=== PATIENT | male | born 1950 | race Caucasian/White ===

== ENCOUNTER 2017-08-19 17:42 | Emergency (ER) | payer MEDICAID ==
[~2017-08-19] VITALS: Ht 167.6 cm; Wt 74.8 kg
[~2017-08-19 17:42] MED LIST: APIX2.5T PO; INSU100I14 SQ; INSU100I29 SQ; MEMA5TAB16 PO; QUET25TA73 PO; RIVA1.5C6 PO; WARF-47 PO; WARF-48 PO
--- OUTSIDE RECORDS SUMMARY | 2017-08-19 17:46 | XMS REPORT ---
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 as directed 6h May, Active RESULTS No Results PROCEDURES No Known procedures IMMUNIZATIONS No Known Immunizations
--- OUTSIDE RECORDS SUMMARY | 2017-08-19 17:46 | XMS REPORT ---
Author Author EAMON YEBOAH [facility] eClinicalWorks Address Unknown Phone Unavailable Care Team Providers Care Patternmaker Helper Name Role Phone EAMON YEBOAH CP Unavailable Allergies, Adverse Reactions, Alerts Substance Reaction Event Type N.K.D.A. 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 One Touch Delica Ultra 3 times a day September 15, 2015 as directed Seroquel [facility] [address]-08 25 MG Orally 2 times a day, please voucher this medication December 08, 2015 as directed Ranitidine HCl [facility] 89891439220 150 MG 1 capsule Twice a day Orally 30 days Lisinopril ND 65046532922 10 MG 1 tablet Once a day Orally 30 days Test strips NDC 0 ... 4 times a day May 22, 2015 as directed Warfarin Sodium [facility] [address]-66 5 mg Orally Once a day, please voucher this medication December 08, 2015 1 tablet Rivastigmine Tartrate [facility] 70760683821 1.5 MG please voucher this medication 1 capsule with food Twice a day Orally 30 days Pravastatin Sodium [facility] 44157123773 40 MG 1 tablet Once a day Orally Levemir FlexTouch [facility] [address]-22 100 UNIT/ML Subcutaneous 2 times a day. Jun 17, 2015 46 u Namenda [facility] [address]-17 5 mg Orally Once a day, please voucher this medication 1 tablet BD Ultra-Fine Pen Holly NDC 0 BD PEN NEEDLE HAWA subcutaneous 5 times per day October 09, 2015 29g x 1/2 NovoLog Flexpen [facility] 48255085375 100 UNIT/ML Subcutaneous 3 times a day with meals 8 units Warfarin Sodium [facility] [address]-60 2 MG Orally Once a day, please voucher this medication December 08, 2015 1 tablet NovoLog Flexpen [facility] [address]-52 100 UNIT/ML Subcutaneous 3 times a day with meals Jun 11, 2015 8 units Procedures Procedure Coding System Code Date PROTHROMBIN TIME CPT-4 54485 December 08, 2015 Office Visit, Est Pt., Level 3 CPT-4 41060 December 08, 2015 Vital Signs Date/Time: December 08, 2015 Cardiac Monitoring Heart Rate 68 bpm Weight 188.1 lbs Height 66 in Blood Pressure Diastolic 70 mmHg Blood Pressure Systolic 130 mmHg Results No Known Results Summary Purpose eClinicalWorks Submission
--- OUTSIDE RECORDS SUMMARY | 2017-08-19 17:46 | XMS REPORT ---
Author Author AARON RAMOS [facility] Address [address] [place] [address] Care Team Providers Care Cutter Operator Name Role Phone AARON RAMOS Unavailable PROBLEMS Type Condition ICD9-CM Code [id number] Code Onset Dates Condition Status SNOMED Code Problem Diabetes type 2, controlled E11.9 Active 58199298 Problem Chronic obstructive pulmonary disease, unspecified COPD type J44.9 Active 35188427 Problem Essential hypertension I10 Active 83343600 Problem DM neuro manif type II E11.49 Active 64821783 Problem terminal superintendent 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 Active 298196800 Problem History of pulmonary embolus (PE) Z86.711 Active 449552919 Problem Schizophrenia, unspecified type F20.9 Active 38159673 ALLERGIES Unknown Allergies SOCIAL HISTORY No smoking Hx information available PLAN OF CARE Activity Details Follow Up 2 Months Reason: VITAL SIGNS MEDICATIONS Unknown Medications RESULTS No Results PROCEDURES Procedure Date Ordered Related Diagnosis Body Site Minor complication (15 mins) Mar 31, 2016 IMMUNIZATIONS No Known Immunizations
--- OUTSIDE RECORDS SUMMARY | 2017-08-19 17:46 | XMS REPORT ---
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 Active 506436612 Problem Diabetes type 2, controlled E11.9 Active 42072587 Problem Dementia without behavioral disturbance, unspecified dementia type F03.90 Active 89222749 Problem Chronic obstructive pulmonary disease, unspecified COPD type J44.9 Active 79136266 Problem Schizophrenia, unspecified type F20.9 Active 45914358 Problem DM neuro manif type II E11.49 Active 68406004 Problem Essential hypertension I10 Active 48166872 Problem History of pulmonary embolus (PE) Z86.711 Active 177422561 ALLERGIES No Information SOCIAL HISTORY Never Assessed PLAN OF CARE VITAL SIGNS MEDICATIONS Medication Instructions Dosage Frequency Start Date End Date Duration Status Medrol 4 MG as directed October, Active Ipratropium-Albuterol 0.5-2.5 (3) MG/3ML Inhalation every 6 hrs while awke 3 ml October, 2 days Active RESULTS No Results PROCEDURES No Known procedures IMMUNIZATIONS No Known Immunizations MEDICAL (GENERAL) HISTORY Type Description Date Medical History hypertension Medical History diabetes mellitus Medical History heart disease, CAD Medical History psych disorder- hallucinations Medical History COPD Medical History Previous CVA 2008 Medical History Hx of DVT Surgical History cardiac pacemaker Surgical History bypass surgeries x's 2 Hospitalization History had CVA Audi 2007 Hospitalization History COPD Exacerbation, anemia, acute kidney injury 2015
--- OUTSIDE RECORDS SUMMARY | 2017-08-19 17:46 | XMS REPORT ---
Author Author ROMULO IBARRA [facility] eClinicalWorks Address Unknown Phone Unavailable Care Team Providers Care Bingo Worker Name Role Phone ROMULO IBARRA Unavailable Allergies No Known Allergies Problems Problem Type Condition Code Onset Dates Condition Status Problem Diabetes type 2, controlled E11.9 Active Problem Hypertension 401.9 Active Problem detention 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 Active Assessment detention 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 Active Medications No Known Medications Procedures Procedure Coding System Code Date PROTHROMBIN TIME CPT-4 54317 Apr 10, 2015 Results No Known Results Summary Purpose eClinicalWorks Submission
--- OUTSIDE RECORDS SUMMARY | 2017-08-19 17:46 | XMS REPORT ---
Author Author AARON RAMOS [facility] Address [address] [place] [address] Care Team Providers Care Subway Guard Name Role Phone ARAON RAMOS Unavailable PROBLEMS Type Condition ICD9-CM Code PGK86-VP Code Onset Dates Condition Status SNOMED Code Problem Diabetes type 2, controlled E11.9 Active 33389504 Problem Chronic obstructive pulmonary disease, unspecified COPD type J44.9 Active 57913305 Problem Essential hypertension I10 Active 73799765 Problem DM neuro manif type II E11.49 Active 97280392 Problem moth 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 Active 944032248 Problem History of pulmonary embolus (PE) Z86.711 Active 147774353 Problem Schizophrenia, unspecified type F20.9 Active 32292087 ALLERGIES Unknown Allergies SOCIAL HISTORY No smoking Hx information available PLAN OF CARE VITAL SIGNS MEDICATIONS Medication Instructions Dosage Frequency Start Date End Date Duration Status Donepezil Hydrochloride 5 mg Orally Once a day for 4 weeks and then increase to 10mg at bedtine 1 tablet at bedtime May, 30 day(s) Active RESULTS No Results PROCEDURES No Known procedures IMMUNIZATIONS No Known Immunizations
--- OUTSIDE RECORDS SUMMARY | 2017-08-19 17:46 | XMS REPORT ---
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 Jun 08, 2015 as directed Results No Known Results Summary Purpose eClinicalWorks Submission
--- OUTSIDE RECORDS SUMMARY | 2017-08-19 17:46 | XMS REPORT ---
Author Author AARON RAMOS [facility] Address [address] [place] [address] Care Team Providers Care Area Director Name Role Phone AARON RAMOS Unavailable PROBLEMS Type Condition ICD9-CM Code [id number]-MT Code Onset Dates Condition Status SNOMED Code Problem Diabetes type 2, controlled E11.9 Active 91409283 Problem Chronic obstructive pulmonary disease, unspecified COPD type J44.9 Active 91197991 Problem Essential hypertension I10 Active 69403821 Problem DM neuro manif type II E11.49 Active 53666810 Problem watermaster 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 Active 107396300 Problem History of pulmonary embolus (PE) Z86.711 Active 377261018 Problem Schizophrenia, unspecified type F20.9 Active 37720904 ALLERGIES Unknown Allergies SOCIAL HISTORY No smoking Hx information available PLAN OF CARE Activity Details Follow Up 2 Months Reason: VITAL SIGNS MEDICATIONS Unknown Medications RESULTS No Results PROCEDURES Procedure Date Ordered Related Diagnosis Body Site Stable Visit (10 minutes) Jun 16, 2016 IMMUNIZATIONS No Known Immunizations
--- OUTSIDE RECORDS SUMMARY | 2017-08-19 17:47 | XMS REPORT ---
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
--- OUTSIDE RECORDS SUMMARY | 2017-08-19 17:47 | XMS REPORT ---
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
--- OUTSIDE RECORDS SUMMARY | 2017-08-19 17:47 | XMS REPORT ---
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 4 times a day May 22, 2015 as directed Results No Known Results Summary Purpose eClinicalWorks Submission
--- OUTSIDE RECORDS SUMMARY | 2017-08-19 17:47 | XMS REPORT ---
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
--- OUTSIDE RECORDS SUMMARY | 2017-08-19 17:47 | XMS REPORT ---
Author Author AARON RAMOS [facility] eClinicalWorks Address Unknown Phone Unavailable Care Team Providers Care Entry Analyst Name Role Phone AARON RAMOS Unavailable Allergies No Known Allergies Problems Problem Type Condition Code Onset Dates Condition Status Problem Schizophrenia, unspecified type F20.9 Active Problem DM neuro manif type II E11.49 Active Problem History of pulmonary embolus (PE) Z86.711 Active Problem Hypertension 401.9 Active Problem terminal worker 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 Active Problem Diabetes type 2, controlled E11.9 Active Medications Medication Code System Code Instructions Start Date End Date Status Dosage Metformin HCl [facility] [address]-13 500 MG Orally Twice a day Mar 31, 2016 1 tablet after meals Results No Known Results Summary Purpose eClinicalWorks Submission
--- OUTSIDE RECORDS SUMMARY | 2017-08-19 17:47 | XMS REPORT ---
Author Author EAMON YEBOAH Organization eClinicalWorks Address Unknown Phone Unavailable Care Team Providers Care Roll On Worker Name Role Phone EAMON YEBOAH CP Unavailable Allergies No Known Allergies Problems Problem Type Condition Code Onset Dates Condition Status Problem DM neuro manif type II E11.49 Active Problem halfway 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 Active Problem Schizophrenia, unspecified type F20.9 Active Assessment landscape architect and planner 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 Active Problem Diabetes type 2, controlled E11.9 Active Problem Hypertension 401.9 Active Medications No Known Medications Procedures Procedure Coding System Code Date PROTHROMBIN TIME CPT-4 62691 Jan 25, 2016 Results No Known Results Summary Purpose eClinicalWorks Submission
--- OUTSIDE RECORDS SUMMARY | 2017-08-19 17:47 | XMS REPORT ---
Author Author AARON RAMOS [facility] Address [address] [place] [address] Care Team Providers Care Lunchroom Attendant Name Role Phone AARON RAMOS Unavailable PROBLEMS Type Condition ICD9-CM Code [id number] Code Onset Dates Condition Status SNOMED Code Problem Diabetes type 2, controlled E11.9 Active 11561210 Problem Chronic obstructive pulmonary disease, unspecified COPD type J44.9 Active 62935050 Problem Essential hypertension I10 Active 24605497 Problem DM neuro manif type II E11.49 Active 49988604 Problem terminologist 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 Active 009345755 Problem History of pulmonary embolus (PE) Z86.711 Active 107282569 Problem Schizophrenia, unspecified type F20.9 Active 70647429 ALLERGIES Unknown Allergies SOCIAL HISTORY No smoking Hx information available PLAN OF CARE VITAL SIGNS MEDICATIONS Unknown Medications RESULTS No Results PROCEDURES No Known procedures IMMUNIZATIONS No Known Immunizations
--- OUTSIDE RECORDS SUMMARY | 2017-08-19 17:47 | XMS REPORT ---
Author Author EAMON YEBOAH Organization eClinicalWorks Address Unknown Phone Unavailable Care Team Providers Care Enrollment Representative Name Role Phone EAMON YEBOAH CP Unavailable Allergies, Adverse Reactions, Alerts Substance Reaction Event Type N.K.D.A. Info Not Available Non Drug Allergy Problems Problem Type Condition Code Onset Dates Condition Status Assessment Schizophrenia, unspecified type F20.9 Active Problem DM neuro manif type II E11.49 Active Problem manager long term care 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 Active Problem Schizophrenia, unspecified type F20.9 Active Assessment DM neuro manif type II E11.49 Active Assessment manager long term care 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 Active Problem Diabetes type 2, controlled E11.9 Active Problem Hypertension 401.9 Active Medications Medication Code System Code Instructions Start Date End Date Status Dosage NovoLog Flexpen [facility] [id number] 100 UNIT/ML Subcutaneous 3 times a day with meals 8 units Warfarin Sodium [facility] [address]-61 2 MG Orally Once a day, please voucher this medication December 08, 2015 1 tablet Seroquel [facility] [address]-06 25 MG Orally 2 times a day, please voucher this medication December 08, 2015 as directed Levemir FlexTouch [facility] [address]-06 100 UNIT/ML Subcutaneous 2 times a day. Jun 17, 2015 46 u Warfarin Sodium [facility] [address]-45 5 mg Orally Once a day, please voucher this medication December 08, 2015 1 tablet Namenda [facility] [address]-71 5 mg Orally Once a day, please voucher this medication 1 tablet Procedures Procedure Coding System Code Date PROTHROMBIN TIME CPT-4 95740 Jan 05, 2016 Office Visit, Est Pt., Level 3 CPT-4 35685 Jan 05, 2016 Vital Signs Date/Time: Jan 05, 2016 Cardiac Monitoring Heart Rate 72 bpm Weight 183.1 lbs Height 66 in BMI 29.55 Index Blood Pressure Diastolic 70 mmHg Blood Pressure Systolic 132 mmHg Results No Known Results Summary Purpose eClinicalWorks Submission
--- OUTSIDE RECORDS SUMMARY | 2017-08-19 17:47 | XMS REPORT ---
Author Author ROMULO IBARRA [facility] eClinicalWorks Address Unknown Phone Unavailable Care Team Providers Care Technical Implementation Lead Name Role Phone ROMULO IBARRA Unavailable Allergies No Known Allergies Problems Problem Type Condition Code Onset Dates Condition Status Problem Diabetes type 2, controlled E11.9 Active Problem Hypertension 401.9 Active Problem group home 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 Active Medications Medication Code System Code Instructions Start Date End [place] D[place] [address]-48 5 MG Orally Once a day 1 tablet Coumadin NDC [address]-10 4 MG Orally tuesdays & Feb 27, 2015 2 tabs Results No Known Results Summary Purpose eClinicalWorks Submission
--- OUTSIDE RECORDS SUMMARY | 2017-08-19 17:47 | XMS REPORT ---
Author Author ROMULO IBARRA [facility] eClinicalWorks Address Unknown Phone Unavailable Care Team Providers Care Play Leader Name Role Phone ROMULO IBARRA Unavailable Allergies No Known Allergies Problems Problem Type Condition Code Onset Dates Condition Status Problem Hypertension 401.9 Active Medications Medication Code System Code Instructions Start Date End Date Status Dosage Coumadin [facility] [address]-08 5 MG Orally Once a day 1 tablet Results No Known Results Summary Purpose eClinicalWorks Submission
--- OUTSIDE RECORDS SUMMARY | 2017-08-19 17:47 | XMS REPORT ---
Author Author ROMULO IBARRA [facility] eClinicalWorks Address Unknown Phone Unavailable Care Team Providers Care Supervisor Chemical Name Role Phone ROMULO IBARRA CP Unavailable Allergies, Adverse Reactions, Alerts Substance Reaction Event Type N.K.D.A. Info Not Available Non Drug Allergy Problems Problem Type Condition ICD-9 Code Onset Dates Condition Status Assessment Hx of cardiac pacemaker V12.50 Active Assessment Hypertension 401.9 Active Problem Hypertension 401.9 Active Assessment COPD (chronic obstructive pulmonary disease) 496 Active Assessment History of hallucinations V11.9 Active Medications Medication Code System Code Instructions Start Date End Date Status Dosage Latuda [facility] [address]-74 120 MG Orally Once a day 1 tablet Rivastigmine Tartrate [facility] [address]-50 1.5 MG Orally Twice a day 1 capsule with food Humalog KwikPen [facility] [address]-43 100 UNIT/ML Subcutaneous 3 times a day per SS Feb 27, 2015 as directed Coumadin [facility] [address]-63 4 MG Orally tuesdays & Feb 27, 2015 2 tabs Coumadin [facility] [address]-99 5 MG Orally Once a day 1 tablet Pravastatin Sodium [facility] [address]-21 40 MG Orally Once a day 1 tablet Ranitidine HCl [facility] [address]-58 150 MG Orally Twice a day 1 capsule Insulin Detemir [facility] [address]-99 100 UNIT/ML Subcutaneous 2 times a day Feb 27, 2015 30 units Lisinopril [facility] [address]-81 10 MG Orally Once a day 1 tablet Namenda [facility] [address]-73 5 MG Orally Once a day 1 tablet Vital Signs Date/Time: Feb 27, 2015 Temperature 97 F Weight 179 lbs Height 66 in BMI 28.89 Index Blood Pressure Diastolic 70 mmHg Blood Pressure Systolic 140 mmHg Cardiac Monitoring Heart Rate 80 bpm Results No Known Results Summary Purpose eClinicalWorks Submission
--- OUTSIDE RECORDS SUMMARY | 2017-08-19 17:47 | XMS REPORT ---
Author Author AARON RAMOS Organization eClinicalWorks Address Unknown Phone Unavailable Care Team Providers Care Dungeon Master Name Role Phone AARON RAMOS CP Unavailable Allergies No Known Allergies Problems Problem Type Condition Code Onset Dates Condition Status Problem DM neuro manif type II E11.49 Active Problem longterm 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 Active Problem Schizophrenia, unspecified type F20.9 Active Problem Diabetes type 2, controlled E11.9 Active Problem Hypertension 401.9 Active Medications No Known Medications Results No Known Results Summary Purpose eClinicalWorks Submission
--- OUTSIDE RECORDS SUMMARY | 2017-08-19 17:47 | XMS REPORT ---
Author Author ROMULO IBARRA [facility] eClinicalWorks Address Unknown Phone Unavailable Care Team Providers Care Leather Stamper Name Role Phone ROMULO IBARRA Unavailable Allergies No Known Allergies Problems Problem Type Condition Code Onset Dates Condition Status Problem Diabetes type 2, controlled E11.9 Active Problem Hypertension 401.9 Active Problem halfway 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 Active Assessment halfway 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 Active Medications No Known Medications Procedures Procedure Coding System Code Date PROTHROMBIN TIME CPT-4 06703 Mar 26, 2015 Results No Known Results Summary Purpose eClinicalWorks Submission
--- OUTSIDE RECORDS SUMMARY | 2017-08-19 17:47 | XMS REPORT ---
Author Author ROMULO IBARRA eClinicalWorks Address Unknown Phone Unavailable Care Team Providers Care Copy Reader Name Role Phone ROMULO IBARRA Unavailable Allergies, Adverse Reactions, Alerts Substance Reaction Event Type N.K.D.A. Info Not Available Non Drug Allergy Problems Problem Type Condition Code Onset Dates Condition Status Problem Hypertension 401.9 Active Assessment Diabetes type 2, controlled E11.9 Active Problem Diabetes type 2, controlled E11.9 Active Assessment Encounter for immunization Z23 Active Medications Medication Code System Code Instructions Start Date End Date Status Dosage Insulin Detemir [facility] [address]-49 100 UNIT/ML Subcutaneous 2 times a day Feb 27, 2015 30 units Rivastigmine Tartrate [facility] [address]-34 1.5 MG Orally Twice a day 1 capsule with food Pravastatin Sodium [facility] [address]-66 40 MG Orally Once a day 1 tablet Coumadin [facility] [address]-44 4 MG Orally tuesdays & Feb 27, 2015 2 tabs Latuda [facility] [address]-94 120 MG Orally Once a day 1 tablet Ranitidine HCl [facility] [address]-00 150 MG Orally Twice a day 1 capsule Namenda [facility] [address]-87 5 MG Orally Once a day 1 tablet Humalog KwikPen [facility] [address]-10 100 UNIT/ML Subcutaneous 3 times a day per SS Feb 27, 2015 as directed Lisinopril [facility] [address]-38 10 MG Orally Once a day 1 tablet Procedures Procedure Coding System Code Date Office Visit, Est Pt., Level 3 CPT-4 14710 Mar 19, 2015 MICROALBUMIN, SEMIQUANT CPT-4 73221 Mar 19, 2015 GLYCATED HEMOGLOBIN TEST CPT-4 46370 Mar 19, 2015 SINGLE IMMUNIZATION ADMIN CPT-4 07119 Mar 19, 2015 FLUARIX QUAD (3 & UP)--2014 CPT-4 18094 Mar 19, 2015 Vital Signs Date/Time: Mar 19, 2015 Temperature 98.4 F Weight 185.0 lbs Height 66 in BMI 29.86 Index Blood Pressure Diastolic 40 mmHg Blood Pressure Systolic 110 mmHg Cardiac Monitoring Heart Rate 68 bpm Results Name Result Date Reference Range Unit Abnormality Flag A1C (IN HOUSE) Immunizations Vaccine Administration Date FLUARIX QUAD (3 & UP)-GSK-2014Mar 19, 2015 Summary Purpose eClinicalWorks Submission
--- OUTSIDE RECORDS SUMMARY | 2017-08-19 17:48 | XMS REPORT ---
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 Active 721385292 Problem Diabetes type 2, controlled E11.9 Active 47528058 ALLERGIES Unknown Allergies SOCIAL HISTORY No smoking Hx information available PLAN OF CARE VITAL SIGNS MEDICATIONS Medication Instructions Dosage Frequency Start Date End Date Duration Status Rivastigmine Tartrate 1.5 MG Orally Twice a day 1 tablet 12h Active Seroquel 25 MG Orally 2 times a day 1 tablet 12h Dec, Active Warfarin Sodium 2 MG Orally Once a day 1 tablet 24h Dec, Active Warfarin Sodium 5 mg Orally Once a day 1 tablet 24h Dec, Active RESULTS No Results PROCEDURES No Known procedures IMMUNIZATIONS No Known Immunizations
--- OUTSIDE RECORDS SUMMARY | 2017-08-19 17:48 | XMS REPORT ---
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
--- OUTSIDE RECORDS SUMMARY | 2017-08-19 17:48 | XMS REPORT ---
Author Author ROMULO IBARRA eClinicalWorks Address Unknown Phone Unavailable Care Team Providers Care Buzzsaw Operator Name Role Phone ROMULO IBARRA CP Unavailable Allergies, Adverse Reactions, Alerts Substance Reaction Event Type N.K.D.A. 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 4 times a day May 22, 2015 as directed Lisinopril [facility] [address]-30 10 MG Orally Once a day 1 tablet Pravastatin Sodium [facility] [address]-21 40 MG Orally Once a day 1 tablet Coumadin [facility] [address]-66 4 MG Orally tuesdays & Feb 27, 2015 2 tabs Latuda [facility] [address]-67 120 MG Orally Once a day 1 tablet NovoLog [facility] [address]-74 100 UNIT/ML Subcutaneous 3 times a day with meals Jun 08, 2015 8 units Insulin Detemir [facility] [address]-65 100 UNIT/ML Subcutaneous 2 times a day Feb 27, 2015 30 units Namenda [facility] [address]-34 5 MG Orally Once a day 1 tablet Ranitidine HCl [facility] [address]-90 150 MG Orally Twice a day 1 capsule Coumadin [facility] [address]-40 5 MG Orally Once a day 1 tablet Rivastigmine Tartrate [facility] [address]-84 1.5 MG Orally Twice a day 1 capsule with food Procedures Procedure Coding System Code Date Office Visit, Est Pt., Level 3 CPT-4 89933 Jun 08, 2015 PROTHROMBIN TIME CPT-4 02158 Jun 08, 2015 Vital Signs Date/Time: Jun 08, 2015 Temperature 98 F Weight 184 lbs Height 66 in BMI 29.70 Index Blood Pressure Diastolic 70 mmHg Blood Pressure Systolic 114 mmHg Cardiac Monitoring Heart Rate 71 bpm Results No Known Results Summary Purpose eClinicalWorks Submission
[2017-08-19] MEDS ORDERED: ASPIRIN 81 MG CHEW (CHILDREN'S ASA) PO ONE (18:00)
[2017-08-19] MEDS ORDERED: ONDANSETRON 4 MG/2 ML (SDV) Z0FRAN IVP ONE (18:00)
--- NOTE | 2017-08-19 18:01 | ED Chest Pain ---
General Stated Complaint: CP Source: patient Exam Limitations: no limitations History of Present Illness Date Seen by Provider: Aug 19, 2017 Time Seen by Provider: 17:59 Initial Comments To ER per EMS from via [facility] with reports of central chest pain that was nonradiating that began about 4:30 while he was sitting in his chair watching TV. He has chronic shortness of breath unchanged. Pain did not radiate. He states that it initially began in his abdomen and seemed to move up towards. He has been nauseous. He denies abdominal pain. He was given a nitroglycerin patch by EMS in route to the hospital because they could not get IV access. At this time his pain is gone.History of dementia. 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 Timing/Duration: 1-3 hours, changing over time Severity/Quality: moderate Location: central Radiation: no radiation Activities at Onset: none ASA po SAND TECHNOLOGIST: No NTG SL SAND TECHNOLOGIST: No Associated Symptoms: nausea/vomiting Allergies and Home Medications Allergies Coded Allergies: No Known Drug Allergies (Unverified , 03/17/16) Home Medications Apixaban 2.5 Mg Tablet, 2.5 MG PO BID Prescribed by: ANDRESSA WELCH on 03/24/16 1040 Insulin Aspart 300 Units/3 Ml Solution, 8 UNITS SQ AC, (Reported) ONLY INJECTS IF BS IS ABOVE 140 Insulin Detemir 100 Unit/1 Ml Insuln.pen, 15 UNITS SQ BID LAST FILLED 11/16/15 #30 DAYS SUPPLY Prescribed by: ANDRESSA WELCH on 03/24/16 1040 Memantine HCl 5 Mg Tablet, 5 MG PO DAILY, (Reported) Quetiapine Fumarate 25 Mg Tablet, 25 MG PO BID, (Reported) Rivastigmine Tartrate 1.5 Mg Capsule, 1.5 MG PO BID, (Reported) Patient Home Medication List Home Medication List Reviewed: Yes Review of Systems Constitutional: see HPI EENTM: No Symptoms Reported Respiratory: No Symptoms Reported Cardiovascular: See HPI, Chest Pain Gastrointestinal: See HPI, Abdominal Pain, Nausea Musculoskeletal: no symptoms reported Skin: no symptoms reported Psychiatric/Neurological: No Symptoms Reported Endocrine: No Symptoms Reported Hematologic/Lymphatic: No Symptoms Reported Past Ivvurrh-Nyvsty-Ktyfni Hx Patient Social History Type Used: Cigarettes Recent Hopitalizations: No Immunizations Up To Date Tetanus Booster (TDap): Unknown Seasonal Allergies Seasonal Allergies: No Respiratory Respiratory Disorders: COPD Currently Using CPAP: No Currently Using BIPAP: No Reproductive System Hx Reproductive Disorders: No Gastrointestinal Gastrointestinal Disorders: Gastroesophageal Reflux Endocrine Endocrine Disorders: Diabetes, Insulin dep Psychosocial Behavioral Health Disorders: Anxiety Family Medical History Family Medial History: Cardiovascular disease 19 FATHER 19 MOTHER G8 BROTHER G8 SISTER Diabetes mellitus 19 FATHER G8 BROTHER FH: lung cancer 19 MOTHER G8 BROTHER G8 SISTER Respiratory disorder 19 MOTHER Physical Exam Vital Signs Vital Signs - First Documented 08/19/17 17:48 Temp 98.0 Pulse 60 Resp 18 B/P (MAP) 179/97 (124) Pulse Ox 97 O2 Delivery Room Air Capillary Refill : General Appearance: No Apparent Distress, WD/WN HEENT: PERRL/EOMI, TMs Normal Neck: Full Range of Motion, Normal Inspection Respiratory: Normal Breath Sounds, No Accessory Muscle Use, No Respiratory Distress Cardiovascular: Regular Rate, Rhythm, Normal Peripheral Pulses Gastrointestinal: Normal Bowel Sounds, Non Tender, Soft Extremity: Normal Capillary Refill, Normal Inspection Neurologic/Psychiatric: Alert, Oriented x3, No Motor/Sensory Deficits Skin: Normal Color, Warm/Dry Progress/Results/Core Measures Results/Orders Lab Results Laboratory Tests Test 08/19/17 17:55 08/19/17 20:00 Range/Units White Blood Count 15.2 H 4.3-11.0 10^3/uL Red Blood Count 5.33 4.35-5.85 10^6/uL Hemoglobin 13.2 L 13.3-17.7 G/DL Hematocrit 41 40-54 % Mean Corpuscular Volume 77 L 80-99 FL Mean Corpuscular Hemoglobin 25 25-34 PG Mean Corpuscular Hemoglobin Concent 32 32-36 G/DL Red Cell Distribution Width 17.8 H 10.0-14.5 % Platelet Count 310 130-400 10^3/uL Mean Platelet Volume 10.5 H 7.4-10.4 FL Neutrophils (%) (Auto) 55 42-75 % Lymphocytes (%) (Auto) 32 12-44 % Monocytes (%) (Auto) 9 0-12 % Eosinophils (%) (Auto) 4 0-10 % Basophils (%) (Auto) 2 0-10 % Neutrophils # (Auto) 8.3 H 1.8-7.8 X 10^3 Lymphocytes # (Auto) 4.8 H 1.0-4.0 X 10^3 Monocytes # (Auto) 1.3 H 0.0-1.0 X 10^3 Eosinophils # (Auto) 0.5 H 0.0-0.3 10^3/uL Basophils # (Auto) 0.2 H 0.0-0.1 10^3/uL Neutrophils % (Manual) 48 % Lymphocytes % (Manual) 19 % Monocytes % (Manual) 6 % Eosinophils % (Manual) 2 % Basophils % (Manual) 0 % Band Neutrophils 2 % Reactive Lymphocytes 23 % Toxic Granulation 1+ Poikilocytosis SLIGHT Anisocytosis MODERATE Stomatocytes SLIGHT Elliptocytes SLIGHT Rouleau SLIGHT Prothrombin Time 14.2 12.2-14.7 SEC INR Comment 1.1 0.8-1.4 Activated Partial Thromboplast Time 40 H 24-35 SEC Sodium Level 137 135-145 MMOL/L Potassium Level 4.5 3.6-5.0 MMOL/L Chloride Level 104 98-107 MMOL/L Carbon Dioxide Level 24 21-32 MMOL/L Anion Gap 9 5-14 MMOL/L Blood Urea Nitrogen 11 7-18 MG/DL Creatinine 1.30 0.60-1.30 MG/DL Estimat Glomerular Filtration Rate 55 BUN/Creatinine Ratio 8 Glucose Level 139 H 70-105 MG/DL Calcium Level 9.3 8.5-10.1 MG/DL Magnesium Level 2.1 1.8-2.4 MG/DL Total Bilirubin 0.3 0.1-1.0 MG/DL Aspartate Amino Transf (AST/SGOT) 22 5-34 U/L Alanine Aminotransferase (ALT/SGPT) 15 0-55 U/L Alkaline Phosphatase 86 40-136 U/L Myoglobin 35.6 10.0-92.0 NG/ML Troponin I < 0.30 < 0.30 <0.30 NG/ML B-Type Natriuretic Peptide 75.6 <100.0 PG/ML Total Protein 7.7 6.4-8.2 GM/DL Albumin 4.4 3.2-4.5 GM/DL Lipase 20 8-78 U/L My Orders Orders - MARISABEL BALDWIN APRN Cbc With Automated Diff (08/19/17 17:56) Magnesium (08/19/17 17:56) Chest 1 View, Ap/Pa Only (08/19/17 17:56) Ekg Tracing (08/19/17 17:56) Cardiac Profile 1 (08/19/17 17:56) Comprehensive Metabolic Panel (08/19/17 17:56) Myoglobin Serum (08/19/17 17:56) Protime With Inr (08/19/17 17:56) Partial Thromboplastin Time (08/19/17 17:56) O2 (08/19/17 17:56) Monitor-Rhythm Ecg Trace Only (08/19/17 17:56) Aspirin Chewable Tablet (Baby Aspirin Ch (08/19/17 18:00) Saline Lock/Iv-Start (08/19/17 17:56) Lipase (08/19/17 17:56) BNP (08/19/17 17:56) Ondansetron Injection (Zofran Injectio (08/19/17 18:00) Manual Differential (08/19/17 17:55) Hydralazine Injection (Apresoline Inject (08/19/17 18:15) Hydralazine Injection (Apresoline Inject (08/19/17 18:45) Troponin I (08/19/17 20:03) Medications Given in ED Current Medications Medications Dose Ordered Sig/Chalo Route Start Time Stop Time Status Last Admin Dose Admin Aspirin 324 mg ONCE ONCE PO 08/19/17 18:00 18 18:01 DC 18 18:32 324 MG Hydralazine HCl 10 mg ONCE ONCE IV 18 18:15 18 18:16 DC 18 18:30 10 MG Hydralazine HCl 10 mg ONCE ONCE IV 08/19/17 18:45 08/19/17 18:46 DC 08/19/17 18:48 10 MG Ondansetron HCl 8 mg ONCE ONCE IVP 08/19/17 18:00 08/19/17 18:01 DC 08/19/17 18:09 8 MG Vital Signs/I&O Vital Sign - Last 12Hours 08/19/17 17:48 Temp 98.0 Pulse 60 Resp 18 B/P (MAP) 179/97 (124) Pulse Ox 97 O2 Delivery Room Air Diagnostic Imaging Diagonstic Imaging: Xray Comments NAME: SHALA PEDRO [facility] REC#: [id number] PT STATUS: REG ER : 1950 PHYSICIAN: MARISABEL BALDWIN APRN ADMIT DATE: 08/19/17/ER Draft Date of Exam:08/19/17 CHEST 1 VIEW, AP/PA ONLY PATIENT HISTORY: Chest pain. TECHNIQUE: Single frontal view of the chest. COMPARISON: 03/20/2016. FINDINGS: There is elevation of the right hemidiaphragm, left lung volume appears normal. There are bibasilar opacities, likely atelectasis, which appears similar to the prior study. Interstitial opacities appear decreased since the prior study. The left-sided pacemaker leads appear unchanged in position. Sternotomy wires and post CABG changes are present. Cardiac size appears stable. No acute osseous abnormality is seen. There is no pneumothorax or large pleural effusion identified. IMPRESSION: Minimal bibasilar opacities, likely atelectasis. No acute pulmonary abnormality seen. Dictated on workstation # [id number] Dict: 08/19/171916 Trans: 08/19/171918 [facility] [id number] Interpreted by: ANUJA FARAH MD Electronically signed by: Departure Communication (Admissions) Progress Notes Patient has been asymptomatic since arriving to the emergency room he was briefly nauseated. However chest pain has remained gone. His blood pressure is now in the 150 systolic range. His repeat troponin is negative. His abdomen is soft and round nontender to palpation so I will not do any abdominal imaging at this time. We will discharge back to [facility] home with return precautions. Impression Impression: Primary Impression: Chest pain Disposition: XF [facility] Condition: Stable Departure-Patient Inst. Decision time for Depature: 20:47 Referrals: ANRDESSA WELCH MD (PCP) Primary Care Physician Patient Instructions: Chest Pain (DC) Add. Discharge Instructions: 1. Return to the emergency room for any abdominal pain, shortness of breath, chest pain, vomiting or any other concerns. Follow-up with his doctor on Monday. MARISABEL BALDWIN APRN Aug 19, 2017 18:01
[2017-08-19 18:05] LABS: BASOPHILS # (AUTO) 0.2 10^3/uL (0.0-0.1); BASOPHILS % (AUTO) 2 % (0-10); EOSINOPHILS # (AUTO) 0.5 10^3/uL (0.0-0.3); EOSINOPHILS % (AUTO) 4 % (0-10); HEMATOCRIT 41 % (40-54); HEMOGLOBIN 13.2 G/DL (13.3-17.7); LYMPHOCYTES # (AUTO) 4.8 X 10^3 (1.0-4.0); LYMPHOCYTES % (AUTO) 32 % (12-44); MEAN CORPUSCULAR HEMOGLOBIN 25 PG (25-34); MEAN CORPUSCULAR HGB CONC 32 G/DL (32-36); MEAN CORPUSCULAR VOLUME 77 FL (80-99); MEAN PLATELET VOLUME 10.5 FL (7.4-10.4); MONOCYTES # (AUTO) 1.3 X 10^3 (0.0-1.0); MONOCYTES % (AUTO) 9 % (0-12); NEUTROPHILS # (AUTO) 8.3 X 10^3 (1.8-7.8); NEUTROPHILS % (AUTO) 55 % (42-75); PLATELET COUNT 310 10^3/uL (130-400); RED BLOOD COUNT 5.33 10^6/uL (4.35-5.85); RED CELL DISTRIBUTION WIDTH 17.8 % (10.0-14.5); WHITE BLOOD COUNT 15.2 10^3/uL (4.3-11.0)
[2017-08-19 18:11] LABS: INR 1.1 (0.8-1.4); PROTHROMBIN TIME PATIENT 14.2 SEC (12.2-14.7)
[2017-08-19] MEDS ORDERED: hydrALAZINE (APESOLINE) 20 MG/ML VIAL IV ONE ×2 (18:15→18:45)
[2017-08-19 18:22] LABS: ALANINE AMINOTRANSFERASE 15 U/L (0-55); ALBUMIN 4.4 GM/DL (3.2-4.5); ALKALINE PHOSPHATASE 86 U/L (40-136); BILIRUBIN,TOTAL 0.3 MG/DL (0.1-1.0); BUN/CREATININE RATIO 8; CALCIUM 9.3 MG/DL (8.5-10.1); CARBON DIOXIDE 24 MMOL/L (21-32); CHLORIDE 104 MMOL/L (98-107); GFR ESTIMATED 55; GLUCOSE 139 MG/DL (70-105); LIPASE 20 U/L (8-78); MAGNESIUM 2.1 MG/DL (1.8-2.4); POTASSIUM 4.5 MMOL/L (3.6-5.0); SODIUM 137 MMOL/L (135-145); TOTAL PROTEIN 7.7 GM/DL (6.4-8.2)
[2017-08-19 18:28] LABS: BAND NEUTROPHILS 2 %; BASOPHILS % (MANUAL) 0 %; EOSINOPHILS % (MANUAL) 2 %; LYMPHOCYTES % (MANUAL) 19 %; MONOCYTES % (MANUAL) 6 %; MYOGLOBIN SERUM 35.6 NG/ML (10.0-92.0); NEUTROPHILS % (MANUAL) 48 %; POIKILOCYTOSIS SLIGHT; REACTIVE LYMPHOCYTES 23 %
[2017-08-19 18:29] LABS: ANISOCYTOSIS MODERATE; ELLIPT/OVALOCYTES SLIGHT; STOMATOCYTES SLIGHT; TOXIC GRANULATION/VACUOLAZATIO 1+
[2017-08-19 18:30] LABS: ROULEAUX SLIGHT
--- NOTE | 2017-08-19 19:20 | Diagnostic Imaging Report ---
PATIENT HISTORY: Chest pain. TECHNIQUE: Single frontal view of the chest. COMPARISON: 03/20/2016. FINDINGS: There is elevation of the right hemidiaphragm, left lung volume appears normal. There are bibasilar opacities, likely atelectasis, which appears similar to the prior study. Interstitial opacities appear decreased since the prior study. The left-sided pacemaker leads appear unchanged in position. Sternotomy wires and post CABG changes are present. Cardiac size appears stable. No acute osseous abnormality is seen. There is no pneumothorax or large pleural effusion identified. IMPRESSION: Minimal bibasilar opacities, likely atelectasis. No acute pulmonary abnormality seen. Dictated by: Dictated on workstation # [id number]
[2017-08-19 21:47] VITALS: BP 178/85
== END 2017-08-19 21:47 ==
LOC: EDUNIT# 17:42 → ER 17:43
DX: R07.89 Other chest pain (principal); F03.90 Unspecified dementia, unspecified severity, without behavioral disturbance, psychotic disturbance, mood disturbance, and anxiety; J44.9 Chronic obstructive pulmonary disease, unspecified; K21.9 Gastro-esophageal reflux disease without esophagitis; E11.9 Type 2 diabetes mellitus without complications; F41.9 Anxiety disorder, unspecified; I25.10 Atherosclerotic heart disease of native coronary artery without angina pectoris; Z95.1 Presence of aortocoronary bypass graft; Z79.01 Long term (current) use 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s; Z79.4 Long term (current) use of insulin; Z82.49 Family history of ischemic heart disease and other diseases of the circulatory system; Z80.1 Family history of malignant neoplasm of trachea, bronchus and lung
CPT/HCPCS: 36415; 71045; 80053; 83690; 83735; 83874; 83880; 84484; 85007; 85027; 85610; 85730; 93005; 93041; 96374; 96375

== ENCOUNTER 2017-08-29 18:17 | Emergency (ER) | payer MEDICAID, MEDICARE ==
[~2017-08-29] VITALS: Ht 177.8 cm; Wt 77.1 kg
[2017-08-29 18:57] LABS: BASOPHILS # (AUTO) 0.2 10^3/uL (0.0-0.1); BASOPHILS % (AUTO) 1 % (0-10); EOSINOPHILS # (AUTO) 0.3 10^3/uL (0.0-0.3); EOSINOPHILS % (AUTO) 2 % (0-10); HEMATOCRIT 41 % (40-54); HEMOGLOBIN 13.3 G/DL (13.3-17.7); LYMPHOCYTES # (AUTO) 4.4 X 10^3 (1.0-4.0); LYMPHOCYTES % (AUTO) 25 % (12-44); MEAN CORPUSCULAR HEMOGLOBIN 25 PG (25-34); MEAN CORPUSCULAR HGB CONC 33 G/DL (32-36); MEAN CORPUSCULAR VOLUME 77 FL (80-99); MEAN PLATELET VOLUME 10.6 FL (7.4-10.4); MONOCYTES # (AUTO) 2.2 X 10^3 (0.0-1.0); MONOCYTES % (AUTO) 12 % (0-12); NEUTROPHILS # (AUTO) 10.7 X 10^3 (1.8-7.8); NEUTROPHILS % (AUTO) 61 % (42-75); PLATELET COUNT 360 10^3/uL (130-400); RED BLOOD COUNT 5.32 10^6/uL (4.35-5.85); RED CELL DISTRIBUTION WIDTH 17.9 % (10.0-14.5); WHITE BLOOD COUNT 17.7 10^3/uL (4.3-11.0)
--- NOTE | 2017-08-29 19:02 | Diagnostic Imaging Report ---
INDICATION: Shortness of breath and cough. TIME OF EXAM: 7:17 p.m. COMPARISON: Correlation is made with prior study from 08/19/2017. FINDINGS: Changes of median sternotomy and CABG are noted. Cardiac pacemaker remains in place. Lungs are clear. No infiltrate or effusion is seen. There is no pneumothorax. IMPRESSION: No acute cardiopulmonary process is detected. Dictated by: Dictated on workstation # [id number]
[2017-08-29 19:10] LABS: BAND NEUTROPHILS 0 %; BASOPHILS % (MANUAL) 3 %; EOSINOPHILS % (MANUAL) 0 %; LYMPHOCYTES % (MANUAL) 30 %; MONOCYTES % (MANUAL) 10 %; NEUTROPHILS % (MANUAL) 57 %
[2017-08-29 19:11] LABS: RBC MORPH NORMAL
[2017-08-29] MEDS ORDERED: ACETAMINOPHEN 500 MG TAB (TYLENOL) PO ONE (19:15)
[2017-08-29 19:18] LABS: ALBUMIN 4.1 GM/DL (3.2-4.5); BILIRUBIN,TOTAL 0.7 MG/DL (0.1-1.0); CALCIUM 9.1 MG/DL (8.5-10.1); CREATININE SERUM 1.28 MG/DL (0.60-1.30); TOTAL PROTEIN 7.9 GM/DL (6.4-8.2)
--- NOTE | 2017-08-29 19:21 | ED Respiratory ---
General Chief Complaint: Respiratory Problems Stated Complaint: SOA Nursing Triage Note: c/o progressive cough and generalized weakness. Fever noted. Poor historian. History of Present Illness Date Seen by Provider: Aug 29, 2017 Time Seen by Provider: 18:00 Initial Comments Patient is a 67-year-old male who was sent over by the [facility] staff for complaints of coughing and shortness of breath today. Patient reports that he has been coughing on and off today has had some shortness of breath. Patient has fever on arrival to ED. Timing/Duration: intermittent Severity: mild Associated Symptoms: cough, shortness of breath Allergies and Home Medications Allergies Coded Allergies: No Known Drug Allergies (Unverified , 03/17/16) Home Medications Apixaban 2.5 Mg Tablet, 2.5 MG PO BID Prescribed by: ANDRESSA WELCH on 03/24/16 1040 Insulin Aspart 300 Units/3 Ml Solution, 8 UNITS SQ AC, (Reported) ONLY INJECTS IF BS IS ABOVE 140 Insulin Detemir 100 Unit/1 Ml Insuln.pen, 15 UNITS SQ BID LAST FILLED 11/16/15 #30 DAYS SUPPLY Prescribed by: ANDRESSA WELCH on 03/24/16 1040 Memantine HCl 5 Mg Tablet, 5 MG PO DAILY, (Reported) Quetiapine Fumarate 25 Mg Tablet, 25 MG PO BID, (Reported) Rivastigmine Tartrate 1.5 Mg Capsule, 1.5 MG PO BID, (Reported) Patient Home Medication List Home Medication List Reviewed: Yes Constitutional: no symptoms reported, see HPI EENTM: see HPI, no symptoms reported Respiratory: see HPI, cough, short of breath Cardiovascular: no symptoms reported, see HPI Gastrointestinal: no symptoms reported, see HPI Genitourinary: no symptoms reported, see HPI Musculoskeletal: no symptoms reported, see HPI Skin: no symptoms reported, see HPI Psychiatric/Neurological: No Symptoms Reported, See HPI Hematologic/Lymphatic: No Symptoms Reported, See HPI Immunological/Allergic: no symptoms reported, see HPI Past Ykvpkzv-Pkwixd-Gdopgq Hx Patient Social History Alcohol Use: Denies Use Recreational Drug Use: No Smoking Status: Unknown if Ever Smoked Type Used: Cigarettes Recent Foreign Travel: No Contact w/Someone Who Travel: No Recent Infectious Disease Expo: No Recent Hopitalizations: No Immunizations Up To Date Tetanus Booster (TDap): Unknown Seasonal Allergies Seasonal Allergies: No Surgeries History of Surgeries: Yes Respiratory Respiratory Disorders: COPD Currently Using CPAP: No Currently Using BIPAP: No Cardiovascular History of Cardiac Disorders: Yes (pace maker, bypass x2) Cardiac Disorders: Hypertension Neurological History of Neurological Disord: Yes (cva x2) Reproductive System Hx Reproductive Disorders: No Gastrointestinal History of Gastrointestinal Di: Yes Gastrointestinal Disorders: Gastroesophageal Reflux Musculoskeletal History of Musculoskeletal Dis: No Endocrine Endocrine Disorders: Diabetes, Insulin dep Cancer History of Cancer: No Psychosocial History of Psychiatric Problem: Yes Behavioral Health Disorders: Anxiety Integumentary History of Skin or Integumenta: No Blood Transfusions History of Blood Disorders: No Family Medical History Family Medial History: Cardiovascular disease 19 FATHER 19 MOTHER G8 BROTHER G8 SISTER Diabetes mellitus 19 FATHER G8 BROTHER FH: lung cancer 19 MOTHER G8 BROTHER G8 SISTER Respiratory disorder 19 MOTHER Physical Exam Vital Signs Vital Signs - First Documented 08/29/17 18:20 Temp 100.2 Pulse 86 Resp 18 B/P (MAP) 165/74 (104) Pulse Ox 93 O2 Delivery Room Air Capillary Refill : Less Than 3 Seconds General Appearance: WD/WN, no apparent distress HEENT: PERRL/EOMI, normal ENT inspection Neck: non-tender, full range of motion Respiratory: chest non-tender, lungs clear, normal breath sounds, no respiratory distress, no accessory muscle use Cardiovascular: normal peripheral pulses, regular rate, rhythm, no edema, no gallop, no JVD, no murmur Gastrointestinal: normal bowel sounds, non tender, soft, no organomegaly, no pulsatile mass Extremities: normal range of motion, non-tender, normal inspection, no pedal edema, no calf tenderness Neurologic/Psychiatric: 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 support specialist II-XII nml as tested, no motor/sensory deficits Skin: normal color, warm/dry Lymphatic: no adenopathy Focused Exam Evaluation Lactate Level Laboratory Tests 08/29/17 18:40: Lactic Acid Level 1.43 Lactic Acid Level Laboratory Tests Test 08/29/17 18:40 Lactic Acid Level 1.43 MMOL/L (0.50-2.00) Progress/Results/Core Measures Suspected Sepsis Recent Fever Within 48 Hours: Yes Infection Criteria Present: Suspected New Infection New/Unexplained Altered Menta: No Sepsis Screen: No Definite Risk Sepsis Diagnosis: SIRS Temperature:100.2 Pulse: 86 Respiratory Rate: 18 Laboratory Tests 08/29/17 18:40: White Blood Count 17.7H Blood Pressure 165 /74 Mean: 104 Laboratory Tests 3/27/18 18:40: Lactic Acid Level 1.43 Laboratory Tests 08/29/17 18:40: Creatinine 1.28, Platelet Count 360, Total Bilirubin 0.7 Results/Orders Lab Results Laboratory Tests Test 08/29/17 18:40 08/29/17 20:25 Range/Units White Blood Count 17.7 H 4.3-11.0 10^3/uL Red Blood Count 5.32 4.35-5.85 10^6/uL Hemoglobin 13.3 13.3-17.7 G/DL Hematocrit 41 40-54 % Mean Corpuscular Volume 77 L 80-99 FL Mean Corpuscular Hemoglobin 25 25-34 PG Mean Corpuscular Hemoglobin Concent 33 32-36 G/DL Red Cell Distribution Width 17.9 H 10.0-14.5 % Platelet Count 360 130-400 10^3/uL Mean Platelet Volume 10.6 H 7.4-10.4 FL Neutrophils (%) (Auto) 61 42-75 % Lymphocytes (%) (Auto) 25 12-44 % Monocytes (%) (Auto) 12 0-12 % Eosinophils (%) (Auto) 2 0-10 % Basophils (%) (Auto) 1 0-10 % Neutrophils # (Auto) 10.7 H 1.8-7.8 X 10^3 Lymphocytes # (Auto) 4.4 H 1.0-4.0 X 10^3 Monocytes # (Auto) 2.2 H 0.0-1.0 X 10^3 Eosinophils # (Auto) 0.3 0.0-0.3 10^3/uL Basophils # (Auto) 0.2 H 0.0-0.1 10^3/uL Neutrophils % (Manual) 57 % Lymphocytes % (Manual) 30 % Monocytes % (Manual) 10 % Eosinophils % (Manual) 0 % Basophils % (Manual) 3 % Band Neutrophils 0 % Blood Morphology Comment NORMAL Sodium Level 137 135-145 MMOL/L Potassium Level 4.0 3.6-5.0 MMOL/L Chloride Level 105 98-107 MMOL/L Carbon Dioxide Level 21 21-32 MMOL/L Anion Gap 11 5-14 MMOL/L Blood Urea Nitrogen 12 7-18 MG/DL Creatinine 1.28 0.60-1.30 MG/DL Estimat Glomerular Filtration Rate 56 BUN/Creatinine Ratio 9 Glucose Level 190 H 70-105 MG/DL Lactic Acid Level 1.43 0.50-2.00 MMOL/L Calcium Level 9.1 8.5-10.1 MG/DL Total Bilirubin 0.7 0.1-1.0 MG/DL Aspartate Amino Transf (AST/SGOT) 22 5-34 U/L Alanine Aminotransferase (ALT/SGPT) 14 0-55 U/L Alkaline Phosphatase 88 40-136 U/L B-Type Natriuretic Peptide 88.0 <100.0 PG/ML Total Protein 7.9 6.4-8.2 GM/DL Albumin 4.1 3.2-4.5 GM/DL Urine Color YELLOW Urine Clarity CLEAR Urine pH 5 5-9 Urine Specific [place] 1.020 1.016-1.022 Urine Protein 3+ H NEGATIVE Urine Glucose (UA) 1+ H NEGATIVE Urine Ketones 2+ H NEGATIVE Urine Nitrite NEGATIVE NEGATIVE Urine Bilirubin NEGATIVE NEGATIVE Urine Urobilinogen 1 NORMAL MG/DL Urine Leukocyte Esterase 1+ H NEGATIVE Urine RBC (Auto) 1+ H NEGATIVE Urine RBC RARE /HPF Urine WBC 2-5 /HPF Urine Crystals NONE /LPF Urine Bacteria NEGATIVE /HPF Urine Casts PRESENT /LPF Urine Hyaline Casts 5-10 H /LPF Urine Mucus LARGE H /LPF Urine Culture Indicated NO My Orders Orders - MARISABEL BALDWIN APRN Cbc With Automated Diff (08/29/17 18:30) Comprehensive Metabolic Panel (08/29/17 18:30) Chest Pa/Lat (2 View) (08/29/17 18:30) Blood Culture (08/29/17 18:30) Lactic Acid Analyzer (08/29/17 18:30) BNP (08/29/17 18:30) Saline Lock/Iv-Start (08/29/17 18:30) Ua Culture If Indicated (08/29/17 18:30) Manual Differential (08/29/17 18:40) Acetaminophen Tablet (Tylenol Tablet) (08/29/17 19:15) Medications Given in ED Current Medications Medications Dose Ordered Sig/Chalo Route Start Time Stop Time Status Last Admin Dose Admin Acetaminophen 1,000 mg ONCE ONCE PO 08/29/17 19:15 08/29/17 19:16 DC 08/29/17 19:18 1,000 MG Vital Signs/I&O Vital Sign - Last 12Hours 08/29/17 08/29/17 18:20 19:18 Temp 100.2 100.2 Pulse 86 Resp 18 B/P (MAP) 165/74 (104) Pulse Ox 93 O2 Delivery Room Air Capillary Refill : Less Than 3 Seconds Blood Pressure Mean: 104 Departure Communication (Admissions) Progress Notes 2100-I spoke with Dr Wakefield, pt only has 1 sirs criteria which is leukocytosis. CXR clear, urine clean. Will give rocephin 1gm IV here for bronchitis, DC back to [facility]. She states he already has labs scheduled for tomorrow at the [facility]. Impression Impression: Primary Impression: Bronchitis Disposition: XFER SHT-TRM HOSP Condition: Stable Departure-Patient Inst. Decision time for Depature: 21:02 Referrals: ANDRESSA WELCH MD (PCP) Primary Care Physician Patient Instructions: Acute Bronchitis, Adult (DC) Add. Discharge Instructions: 1. Return to ER for any concerns 2. Make an appointment to see Dr Welch this week for recheck All discharge instructions reviewed with patient and/or family. Voiced understanding. Scripts Cefuroxime Axetil (Cefuroxime) 250 Mg Tablet 250 MG PO BID, #10 TAB Prov: MARISABEL BALDWIN APRN 08/29/17 Copy Copies To 1: ANDRESSA WELCH MD, PETER J APRN Aug 29, 2017 19:21
[2017-08-29 20:33] LABS: BILIRUBIN,URINE NEGATIVE (NEGATIVE); CLARITY,URINE CLEAR; COLOR,URINE YELLOW; GLUCOSE, URINE (UA) 1+ (NEGATIVE); KETONES,URINE 2+ (NEGATIVE); LEUKOCYTE ESTERASE ,URINE 1+ (NEGATIVE); NITRITE,URINE NEGATIVE (NEGATIVE); PH,URINE 5 (5-9); PROTEIN,URINE 3+ (NEGATIVE); UROBILINOGEN,URINE 1 MG/DL (NORMAL)
[2017-08-29 20:43] LABS: BACTERIA,URINE NEGATIVE /HPF; RBC,URINE RARE /HPF
[2017-08-29] MEDS ORDERED: cefTRIAXone INJECTION 1,000 MG in NS (IVPB) 100 ML IV ONE (21:00)
[2017-08-29] MEDS ORDERED: CEFU250T80 PO (21:03)
[2017-08-29 21:48] VITALS: BP 114/68
== END 2017-08-29 21:45 | disposition short-term general hospital (02) ==
LOC: EDUNIT# 18:17 → ER 18:18
DX: J40 Bronchitis, not specified as acute or chronic (principal); J44.9 Chronic obstructive pulmonary disease, unspecified; I10 Essential (primary) hypertension; K21.9 Gastro-esophageal reflux disease without esophagitis; E11.9 Type 2 diabetes mellitus without complications; F41.9 Anxiety disorder, unspecified; Z82.49 Family history of ischemic heart disease and other diseases of the circulatory system; Z80.1 Family history of malignant neoplasm of trachea, bronchus and lung; Z95.0 Presence of cardiac pacemaker; Z86.73 Personal history of transient ischemic attack (TIA), and cerebral infarction without residual deficits; Z79.01 Long term (current) use 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s; Z79.4 Long term (current) use of insulin
CPT/HCPCS: 36415; 71046; 80053; 81000; 83605; 83880; 85007; 85027; 87040; 96365

== ENCOUNTER → 2017-09-11 | Outpatient (CLI) | payer MEDICAID ==
[~2017-09-11] VITALS: Ht 167.6 cm; Wt 83.9 kg
[~2017-09-11] MED LIST changes: +CATHETER FLUSH 10 ML SYR IV PRN; +CEFU250T80 PO
== END ==
LOC: CARD 08:44
PROVIDERS: ATTEND Internal Medicine Cardiovascular Disease
DX: R07.89 Other chest pain (principal); I35.8 Other nonrheumatic aortic valve disorders; I25.10 Atherosclerotic heart disease of native coronary artery without angina pectoris; J44.9 Chronic obstructive pulmonary disease, unspecified; R06.02 Shortness of breath

== ENCOUNTER → 2017-09-13 | Outpatient (CLI) | payer MEDICAID ==
[~2017-09-13] MED LIST changes: +REGADENOSON 0.4 MG/5 ML SYR (LEXISCAN) IV ONE
[2017-09-13 13:00] VITALS: BP 189/88
[2017-09-13 13:04] VITALS: BP 181/83
[2017-09-13 13:07] VITALS: BP 194/83
--- NOTE | 2017-09-13 18:26 | STRESS TEST ---
DATE OF SERVICE: 09/13/2017 LEXISCAN MYOVIEW STRESS TEST REPORT REFERRING PHYSICIAN: Mee Kuo MD, [facility]. Baseline heart rate is 60. Baseline blood pressure 187/90. Baseline EKG is sinus rhythm with no ischemic changes. In summary, the patient was injected with 10.37 mCi of technetium-99 Myoview and the resting images were obtained. Then, the patient received 0.4 mg of Lexiscan followed by 30.0 mCi of technetium-99 Myoview. Throughout the test, there were no EKG changes. The resting and stress images were reviewed and compared in the short axis, horizontal long axis, and vertical long axis views. Review of the images showed mild decreased uptake at the inferior apical segment with mild reversibility with transient ischemic dilatation with TID value 1.53, SSS is 3, SDS 1. On the gated images, the left ventricle appeared to be in normal size with normal contractility. Calculated ejection fraction 67%. CONCLUSION: 1. The patient tolerated Lexiscan well. 2. Baseline hypertension persisted throughout test. 3. Transient ischemic dilatation with TID value 1.53, probably due to underlying hypertension. 4. Mild ischemia at the inferoapical segment. 5. Normal left ventricular size with normal contractility. Calculated ejection fraction 67%. Job ID: [id number] DocumentID: [id number] Dictated Date: 09/13/2017 15:44:37 Entry Level Manager Date: 09/13/2017 18:25:56 Dictated By: TL RAMSEY MD
== END ==
LOC: CARD 10:37
PROVIDERS: ATTEND Internal Medicine Cardiovascular Disease
DX: R07.89 Other chest pain (principal); I35.8 Other nonrheumatic aortic valve disorders; I25.10 Atherosclerotic heart disease of native coronary artery without angina pectoris; J44.9 Chronic obstructive pulmonary disease, unspecified; R06.02 Shortness of breath
CPT/HCPCS: 78452; 93017

== ENCOUNTER → 2017-09-21 | Outpatient (CLI) | payer MEDICAID ==
[~2017-09-21] MED LIST changes: +ACET325T49 PO; +ATOR10TA PO; +ATOR10TA66 PO; +BUDE10.2 IH; -CATHETER FLUSH 10 ML SYR IV PRN; +ESCI10TA PO; +HYDR-34 PO; +IBUP-2185 PO; +INSU100V16 SQ; +INSU100V5 SQ; +LISI-552 PO; +LORA10TA7 PO; +MAG355OR33 PO; +MEMA1CAP4 PO; +METF500T5 PO; +ONDA4TAB8 SL; +ONDA8TAB13 PO; +PANT40TA3 PO; +RANI-514 PO; -REGADENOSON 0.4 MG/5 ML SYR (LEXISCAN) IV ONE; +[UNRECOGNIZED DRUG - CODE] PO
== END ==
LOC: CARD 11:59
PROVIDERS: ATTEND Internal Medicine Cardiovascular Disease
DX: R07.89 Other chest pain (principal); I34.0 Nonrheumatic mitral (valve) insufficiency; I25.10 Atherosclerotic heart disease of native coronary artery without angina pectoris; J44.9 Chronic obstructive pulmonary disease, unspecified; R06.02 Shortness of breath
CPT/HCPCS: 93306

== ENCOUNTER 2017-10-04 10:12 | Day surgery (SDC) | payer MEDICAID ==
[~2017-10-04] VITALS: Ht 167.6 cm; Wt 85.3 kg
[2017-10-04] VITALS (11 sets, daily range): BP systolic 162–204; BP diastolic 81–107
[~2017-10-04 10:12] MED LIST changes: -ACET325T49 PO; -ATOR10TA PO; -ATOR10TA66 PO; -BUDE10.2 IH; -ESCI10TA PO; -HYDR-34 PO; -IBUP-2185 PO; -INSU100V16 SQ; -INSU100V5 SQ; -LISI-552 PO; -LORA10TA7 PO; -MAG355OR33 PO; -MEMA1CAP4 PO; -METF500T5 PO; -ONDA4TAB8 SL; -ONDA8TAB13 PO; -PANT40TA3 PO; -RANI-514 PO; -[UNRECOGNIZED DRUG - CODE] PO
[2017-10-04] MEDS ORDERED: NS IV 1000 ML 3,000 ML ONE (10:18)
[2017-10-04] MEDS ORDERED: HEParin 1000 UNIT/ML (10ML VIAL) FOR BOLUS ONE (10:24)
[2017-10-04] MEDS ORDERED: LIDOCAINE 1% INJ 20 ML 20 ML VIAL ONE (10:24)
[2017-10-04] MEDS ORDERED: NS IV 1000 ML 1,000 ML IV SCH ×2 (10:25→12:09)
[2017-10-04 11:01] LABS: HEMOGLOBIN 13.6 G/DL (13.3-17.7); MEAN PLATELET VOLUME 10.1 FL (7.4-10.4); RED BLOOD COUNT 5.64 10^6/uL (4.35-5.85); RED CELL DISTRIBUTION WIDTH 17.5 % (10.0-14.5); WHITE BLOOD COUNT 13.4 10^3/uL (4.3-11.0)
[2017-10-04 11:16] LABS: INR 1.1 (0.8-1.4); PROTHROMBIN TIME PATIENT 14.1 SEC (12.2-14.7)
--- NOTE | 2017-10-04 11:23 | Diagnostic Imaging Report ---
INDICATION: Coronary artery disease. Frontal chest obtained at 10:46 a.m. and compared to 08/29/2017. FINDINGS: There is post sternotomy change with borderline heart size. Pacemaker is unchanged. There is no focal infiltrate or pneumothorax or pleural fluid. There is some volume loss in the right lung with no change from 08/29/2017. IMPRESSION: Poststernotomy changes with borderline cardiomegaly. There is some volume loss of the right lung which appears chronic. No acute consolidation or pleural fluid. Dictated by: Dictated on workstation # [id number]
[2017-10-04 11:26] LABS: ALANINE AMINOTRANSFERASE 10 U/L (0-55); ALBUMIN 4.5 GM/DL (3.2-4.5); ALKALINE PHOSPHATASE 96 U/L (40-136); BILIRUBIN,TOTAL 0.4 MG/DL (0.1-1.0); BUN/CREATININE RATIO 8; CALCIUM 9.5 MG/DL (8.5-10.1); CARBON DIOXIDE 25 MMOL/L (21-32); CHLORIDE 109 MMOL/L (98-107); CHOLESTEROL 198 MG/DL (< 200); CREATININE SERUM 1.11 MG/DL (0.60-1.30); GFR ESTIMATED > 60; GLUCOSE 146 MG/DL (70-105); HDL CHOLESTEROL 40 MG/DL (40-60); SODIUM 143 MMOL/L (135-145); TOTAL PROTEIN 8.5 GM/DL (6.4-8.2); TRIGLYCERIDES 110 MG/DL (<150); VLDL CHOLESTEROL 22 MG/DL (5-40)
[2017-10-04] MEDS ORDERED: APIX2.5T PO (11:27)
[2017-10-04] MEDS ORDERED: MIDAZOLAM 5 MG/5 ML (VERSED) VIAL ONE (11:28)
[2017-10-04] MEDS ORDERED: fentaNYL INJECTION 100 MCG/2 ML AMP ONE (11:28)
[2017-10-04] MEDS ORDERED: METF500T5 PO (11:28)
[2017-10-04] MEDS ORDERED: [UNRECOGNIZED DRUG - CODE] PO (11:30)
[2017-10-04] MEDS ORDERED: ACET325T49 PO (11:31)
[2017-10-04] MEDS ORDERED: BUDE10.2 IH (11:32)
[2017-10-04] MEDS ORDERED: INSU100V16 SQ (11:32)
[2017-10-04] MEDS ORDERED: MEMA1CAP4 PO (11:33)
[2017-10-04] MEDS ORDERED: IBUP200C75 PO (11:34)
[2017-10-04] MEDS ORDERED: LORA10TA7 PO (11:35)
[2017-10-04] MEDS ORDERED: MAG355OR33 PO (11:36)
[2017-10-04] MEDS ORDERED: ONDA8TAB13 PO (11:37)
[2017-10-04] MEDS ORDERED: RANI-514 PO (11:37)
--- NOTE | 2017-10-04 11:54 | Cardiac Procedure Note-CS/ASA ---
Pre-Procedure Note Pre-Op Procedure Note H&P Reviewed The H&P was reviewed, patient examined and no changes noted. Date H&P Reviewed: October 04, 2017 Time H&P Reviewed: 11:53 Conscious Sedation Pre-Proced Time Reviewed: 11:53 ASA Class: 3 Airway Mallampati Classification: ([place] appropriate class) I. II. III, IV Lungs Heart ASA score ASA 1: a normal healthy patient ASA 2: a patient with a mild systemic disease (mid diabetes, controlled hypertension, obesity x ASA 3: a patient with a severe systemic disease that limits activity (angina , COPD, prior Myocardial infarction) ASA 4: a patient with an incapacitating disease that is a constant threat to life (CHF, renal failure) ASA 5: a moribund patient not expected to survive 24 hrs. (ruptured aneurysm) ASA 6: a declared brain patient whose organs are being harvested. For emergent operations, add the letter E after the classification Grade 3 Sedation Plan: Analgesia, Amnesia, Plan communicated to team members, Discussed options with patient/fam, Discussed risks with patient/fam Note The patient is an appropriate candidate to undergo the planned procedure, sedation, and anesthesia. The patient immediately re-assessed prior to indication. TL RAMSEY MD October 04, 2017 11:54
[2017-10-04] MEDS ORDERED: ENALAPRILAT 2.5 MG/2 ML (VASOTEC) VIAL IV ONE (11:59)
[2017-10-04] MEDS ORDERED: meTOprolol 5 MG/5 ML (LOPRESSOR) VIAL ONE (11:59)
[2017-10-04] MEDS ORDERED: ATOR10TA PO (12:11)
--- NOTE | 2017-10-04 12:11 | Discharge Inst-Post CATH ---
Discharge Inst-CATH Post Cardiac Cath D/C Inst Follow Up/Plan Hold metformin for [address] Esparza's office in 2-4 weeks Lipitor 10 mg daily CARDIAC CATH DISCHARGE INSTRUCTIONS *Hold Metformin for 48 hours post heart cath. ACTIVITY * Go Home directly and rest. * Limit activity of the leg (or wrist if it was used) for 7 days including aerobics, swimming, jogging, bicycling, etc. * Restrict stair-climbing for 7 days if possible, if not, climb up with your non -cath leg, then bring together on the same step. * Avoid lifting, pushing, pulling or excessive movement of the affected extremity for 7 days. * Customary sexual activity may be resumed after 2 days-use caution not to use a position that strains or causes pain to the affected extremity. * No driving for 24 hours. * NO SMOKING. * Avoid straining for bowel movements for 7 days. * Gentle walking on level ground is allowed. * Returning to work will depend on the type of procedure and the results. Your doctor will discuss this with you. CALL YOUR DOCTOR FOR ANY OF THE FOLLOWING: *If bleeding from the puncture site occurs- Apply gentle pressure to site with clean cloth and call your doctor or EMS. * If a knot or lump forms under the skin, increases in size, or causes pain. * If bruising appears to be worsening or moving further down your leg instead of disappearing. * Temperature above 101 F. CARE OF YOUR GROIN INCISION; * Bruising or purple discoloration of the skin near the puncture site is common. * You may shower only, no bathtub bathing for 5 days. Be careful to avoid slipping as your leg may feel stiff. * If a closure device was used on your femoral artery, please see the attached guide regarding care of the device and your leg. * REMOVE the dressing from your groin the next day after your procedure in the shower. CARE OF YOUR WRIST INCISION; * Bruising or purple discoloration of the skin near the puncture site is common. * You may shower. * DO NOT submerge wrist. * Remove dressing in 24 hours. TL ESPARZA MD October 04, 2017 12:11
[2017-10-04] MEDS ORDERED: PATIENT MAY USE OWN MEDS, ALL PO SCH (12:15)
--- NOTE | 2017-10-04 12:43 | Cardiac Cath Report ---
Cardiac Cath Report Physician (s)/Socially Responsible Investment Adviser (s) Physician TL RAMSEY MD Pre-Procedure Diagnosis Pre-Procedure Diagnosis: Coronary artery disease Post-Procedure Note Procedure Start Date: October 04, 2017 Name of Procedure: Left heart catheterization Vein graft angiogram VIEIRA angiogram Findings/Procedure Note PROCEDURE NOTE: After explaining the procedure to the patient, all pros and cons were explained , all questions were answered. The patient signed the consent and then he was placed on the cardiac catheterization laboratory. Groin was prepped SL fashion local anesthesia was used. Sheath placed in the right femoral artery. Ragini right and left catheter were used to access the coronary system.Vein Graft evaluated. VIEIRA evaluated. JR was used to access the left ventricular cavity. Left ventriculogram was not done, pressure was measured At the end of the procedure the sheath was removed. Closure device was used FINDINGS: Hemodynamics LV 203/10, end-diastolic pressure of 10 Aorta 207/76 mean of 68 ANATOMY: Left Main has mild disease nonobstructive disease Left Anterior Descending has moderate disease, the VIEIRA to the LAD is patent. Competitive flow through the [place] artery. Left Circumflex has [id number] disease nonobstructive disease Right Coronory Artery is totally occluded proximally with patent vein graft to the right coronary artery VIEIRA to LAD is small, significant competitive flow through the [place] vessel Vein Graft to the distal right coronary artery is patent with excellent flow distally LV Gram was not done, pressure was measured CONCLUSION: 1. Totally occluded right coronary artery with patent vein graft to the right coronary artery with excellent flow in the right system 2. Patent VIEIRA to the LAD although it is very small due to the competitive flow through the [place] artery that has [id number] disease nonobstructive disease 3. Severe hypertension with normal left ventricular end-diastolic pressure DISCUSSION AND RECOMMENDATION: Medical therapy is recommended no intervention is warranted Anesthesia Type: Conscious Sedation Estimated blood loss (mL): 10 ml Contrast Amount: 70 ml Total Radiation Dose: 1097 mGy Post-Procedure Diagnosis Post-operative diagnosis: Coronary artery disease Hypertension Hyperlipidemia Diabetes mellitus TL RAMSEY MD October 04, 2017 12:42
[2017-10-04] MEDS ORDERED: cloNIDine 0.1 MG (CATAPRES) TAB PO ONE (14:00)
[2017-10-04] MEDS ORDERED: meTOprolol SUCCINATE 100 MG (TOPROL XL) TAB PO ONE (14:00)
[2017-10-15] MEDS ORDERED: INSU100V5 SQ (10:59)
[2017-10-15] MEDS ORDERED: PANT40TA3 PO (10:59)
[2017-10-15] MEDS ORDERED: METF500T5 PO (10:59)
[2017-10-15] MEDS ORDERED: ATOR10TA66 PO (10:59)
[2017-10-15] MEDS ORDERED: LISI-552 PO (11:18)
== END 2017-10-04 16:35 | disposition home or self-care (01) ==
LOC: CATH 10:12 → SURG 12:25 → CATH 16:35
PROVIDERS: ATTEND Internal Medicine Cardiovascular Disease
DX: I25.10 Atherosclerotic heart disease of native coronary artery without angina pectoris (principal); I10 Essential (primary) hypertension; E78.5 Hyperlipidemia, unspecified; E11.9 Type 2 diabetes mellitus without complications; Z11.2 Encounter for screening for other bacterial diseases; Z86.718 Personal history of other venous thrombosis and embolism; J44.9 Chronic obstructive pulmonary disease, unspecified; F03.90 Unspecified dementia, unspecified severity, without behavioral disturbance, psychotic disturbance, mood disturbance, and anxiety; F20.9 Schizophrenia, unspecified
CPT/HCPCS: 36415; 36430; 71045; 80053; 80061; 85027; 85610; 85730; 87081; 93459

== ENCOUNTER 2017-10-11 23:47 | Emergency (ER) | payer MEDICAID ==
[~2017-10-11] VITALS: Ht 172.7 cm; Wt 81.6 kg
[~2017-10-11 23:47] MED LIST changes: +ACET325T49 PO; +ATOR10TA PO; +BUDE10.2 IH; +IBUP200C75 PO; +INSU100V16 SQ; +LORA10TA7 PO; +MAG355OR33 PO; +MEMA1CAP4 PO; +METF500T5 PO; +ONDA8TAB13 PO; +ONDANSETRON 4 MG/2 ML (SDV) Z0FRAN ONE; +RANI-514 PO; +[UNRECOGNIZED DRUG - CODE] PO
--- OUTSIDE RECORDS SUMMARY | 2017-10-11 23:55 | XMS REPORT ---
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 831491132 Problem Diabetes type 2, controlled E11.9 Active 42585189 Problem Dementia without behavioral disturbance, unspecified dementia type F03.90 Active 28346776 Problem Chronic obstructive pulmonary disease, unspecified COPD type J44.9 Active 43160674 Problem Schizophrenia, unspecified type F20.9 Active 95682958 Problem DM neuro manif type II E11.49 Active 56007804 Problem Essential hypertension I10 Active 42031688 Problem History of pulmonary embolus (PE) Z86.711 Active 226288922 ALLERGIES No Information ENCOUNTERS Encounter Location Date Diagnosis [facility] [address] [place] [id number] Sep, Bronchitis J40 and Cough R05 [facility] [id number] [id number] Aug, [facility] [address] [place] [id number] Aug, Nausea R11.0 and Weakness R53.1 [facility] [address] [place] [id number] Jun, Diabetes type 2, controlled E11.9 and 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 [facility] [address] [address] Mar, [facility] [address] [id number], [place] [address] Mar, [facility] [address] [place] [id number] Mar, Dementia without behavioral disturbance, unspecified dementia type F03.90 and Diabetes type 2, controlled E11.9 [place] [address] [address] Jan, [facility] [address] [place] [id number] Jan, Diabetes type 2, controlled E11.9 ; Chronic obstructive pulmonary disease, unspecified COPD type J44.9 and Essential hypertension I10 [place] [address] [address] Nov, [facility] [address] [place] [id number] Nov, Chronic obstructive pulmonary disease, unspecified COPD type J44.9 and Diabetes type 2, controlled E11.9 [facility] [address] [place] [id number] October, Diabetes type 2, controlled E11.9 and Essential hypertension I10 [place] [address] [id number] [id number] October, Cough R05 [facility] [address] [place] [id number] Aug, Acute nasopharyngitis J00 [facility] [address] [place] [id number] Jun, Diabetes type 2, controlled E11.9 ; Schizophrenia, unspecified type F20.9 and History of pulmonary embolus (PE) Z86.711 [place] [id number] [address] May, [place] [id number] [address] May, [place] [address] [address] Mar, [facility] [address] [place] [id number] Mar, Diabetes type 2, controlled E11.9 ; History of pulmonary embolus (PE) Z86.711 and Schizophrenia, unspecified type F20.9 [place] [address] [address] Mar, [place] [address] [address] Mar, [id number] [place] [id number] Mar, CAP (community acquired pneumonia) J18.9 and halfway 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 [facility] [id number] [place] [id number] Feb, [address] [id number] Feb, [id number] [place] [id number] Feb, DM neuro manif type II E11.49 ; Schizophrenia, unspecified type F20.9 and halfway 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 [place] [id number] [place] [address] Feb, Xerosis of skin L85.3 ; Other hammer toe(s) (acquired), right foot M20.41 ; Other hammer toe(s) (acquired), left foot M20.42 and DM neuro manif type II E11.49 [facility] [id number] [place] [id number] Jan, [id number] [place] [id number] Jan, 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 [facility] [id number] [id number] Jan, DM neuro manif type II E11.49 ; 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 and Schizophrenia, unspecified type F20.9 [place] [id number] [place] [id number] Dec, DM neuro manif type II E11.49 ; 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 and Schizophrenia, unspecified type F20.9 [facility] [id number] [place] [id number] 14 Nov, 2015 halfway 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 [facility] [id number] [place] [id number] 10 Nov, 2015 DM neuro manif type II E11.49 [facility] [place] [address] [id number] Nov, DM neuro manif type II E11.49 and halfway 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 [facility] [address] [address] Nov, Onychomycosis B35.1 ; Other hammer toe(s) (acquired), right foot M20.41 ; Other hammer toe(s) (acquired), left foot M20.42 and DM neuro manif type II E11.49 [facility] [id number] [place] [id number] October, [facility] [address] [id number] October, [facility] [address] [id number] Sep, [facility] [address] [id number] Aug, [facility] [id number] [place] [address] Aug, Onychomycosis B35.1 ; Xerosis cutis L85.3 and DM neuro manif type II E11.49 [facility] [place] [id number] [place] [id number] Jul, [facility] [id number] [place] [id number] Jun, [facility] [address] [id number] Jun, Hyperglycemia R73.9 [facility] [id number] [place] [id number] Jun, [facility] [id number] [place] [id number] Jun, [address] [id number] Jun, Hyperglycemia R73.9 and halfway 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 [place] [id number] May, [facility] [address] [address] May, Onychomycosis B35.1 ; 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 and Xerosis cutis L85.[address] [place] [id number] Apr, halfway 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 [address] [place] [id number] Mar, [id number] [place] [id number] Mar, 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 [address] [address] [id number] [place] [id number] Mar, Diabetes type 2, controlled E11.9 and Encounter for immunization Z23 [id number] [phone] Mar, [address] [place] [id number] Mar, halfway 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 [address] [place] [id number] Feb, [address] [place] [id number] Feb, Hx of cardiac pacemaker V12.50 ; Hypertension 401.9 ; COPD (chronic obstructive pulmonary disease) 496 and History of hallucinations V11.9 IMMUNIZATIONS No Known Immunizations SOCIAL HISTORY Never Assessed REASON FOR VISIT BS drop PLAN OF CARE VITAL SIGNS MEDICATIONS Unknown Medications RESULTS No Results PROCEDURES No Known procedures INSTRUCTIONS MEDICATIONS ADMINISTERED No Known Medications MEDICAL (GENERAL) HISTORY Type Description Date Surgical History cardiac pacemaker Surgical History bypass surgeries x's 2 Hospitalization History had CVA Audi 2007 Hospitalization History COPD Exacerbation, anemia, acute kidney injury 2015
[2017-10-12] MEDS ORDERED: ASPIRIN 81 MG CHEW (CHILDREN'S ASA) PO ONE
[2017-10-12] MEDS ORDERED: NITROGLYCERIN 0.4 MG SL TABS BTL 25'S SL PRN
[2017-10-12 00:01] LABS: BASOPHILS # (AUTO) 0.3 10^3/uL (0.0-0.1); BASOPHILS % (AUTO) 2 % (0-10); EOSINOPHILS # (AUTO) 0.6 10^3/uL (0.0-0.3); EOSINOPHILS % (AUTO) 4 % (0-10); HEMATOCRIT 38 % (40-54); HEMOGLOBIN 12.2 G/DL (13.3-17.7); LYMPHOCYTES # (AUTO) 3.6 X 10^3 (1.0-4.0); LYMPHOCYTES % (AUTO) 25 % (12-44); MEAN CORPUSCULAR HEMOGLOBIN 25 PG (25-34); MEAN CORPUSCULAR HGB CONC 32 G/DL (32-36); MEAN CORPUSCULAR VOLUME 76 FL (80-99); MEAN PLATELET VOLUME 10.4 FL (7.4-10.4); MONOCYTES # (AUTO) 1.2 X 10^3 (0.0-1.0); MONOCYTES % (AUTO) 9 % (0-12); NEUTROPHILS # (AUTO) 8.5 X 10^3 (1.8-7.8); NEUTROPHILS % (AUTO) 60 % (42-75); PLATELET COUNT 422 10^3/uL (130-400); RED BLOOD COUNT 4.94 10^6/uL (4.35-5.85); RED CELL DISTRIBUTION WIDTH 17.2 % (10.0-14.5); WHITE BLOOD COUNT 14.1 10^3/uL (4.3-11.0)
[2017-10-12 00:18] LABS: INR 1.2 (0.8-1.4); PROTHROMBIN TIME PATIENT 15.2 SEC (12.2-14.7)
[2017-10-12 00:26] LABS: ALANINE AMINOTRANSFERASE 9 U/L (0-55); ALBUMIN 4.2 GM/DL (3.2-4.5); ALKALINE PHOSPHATASE 93 U/L (40-136); BILIRUBIN,TOTAL 0.3 MG/DL (0.1-1.0); BUN/CREATININE RATIO 8; CALCIUM 9.5 MG/DL (8.5-10.1); CARBON DIOXIDE 22 MMOL/L (21-32); CHLORIDE 109 MMOL/L (98-107); CREATININE SERUM 1.33 MG/DL (0.60-1.30); GFR ESTIMATED 53; GLUCOSE 206 MG/DL (70-105); MAGNESIUM 2.1 MG/DL (1.8-2.4); POTASSIUM 3.9 MMOL/L (3.6-5.0); SODIUM 142 MMOL/L (135-145); TOTAL PROTEIN 7.5 GM/DL (6.4-8.2)
[2017-10-12 00:34] LABS: MYOGLOBIN SERUM 29.9 NG/ML (10.0-92.0)
[2017-10-12 00:37] LABS: BAND NEUTROPHILS 0 %; BASOPHILS % (MANUAL) 1 %; EOSINOPHILS % (MANUAL) 4 %; LYMPHOCYTES % (MANUAL) 27 %; MONOCYTES % (MANUAL) 8 %; NEUTROPHILS % (MANUAL) 58 %
[2017-10-12 00:38] LABS: ANISOCYTOSIS SLIGHT; POLYCHROMASIA SLIGHT; REACTIVE LYMPHOCYTES 2 %
[2017-10-12 01:20] LABS: BILIRUBIN,URINE NEGATIVE (NEGATIVE); CLARITY,URINE CLEAR; COLOR,URINE YELLOW; GLUCOSE, URINE (UA) 1+ (NEGATIVE); KETONES,URINE NEGATIVE (NEGATIVE); LEUKOCYTE ESTERASE ,URINE NEGATIVE (NEGATIVE); NITRITE,URINE NEGATIVE (NEGATIVE); PH,URINE 7 (5-9); PROTEIN,URINE 2+ (NEGATIVE); UROBILINOGEN,URINE NORMAL (NORMAL)
[2017-10-12 01:26] LABS: BACTERIA,URINE NEGATIVE /HPF; WBC,URINE RARE /HPF
[2017-10-12] MEDS ORDERED: ONDA4TAB8 SL (03:28)
--- NOTE | 2017-10-12 03:28 | ED Chest Pain ---
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 PT DENIES C/O CP AT THIS TIME. PT DOES HAVE RECENT HX OF CARDIAC CATH 10-07-17 Nursing Sepsis Screen: No Definite Risk Source: patient, EMS, correction records, old records Exam Limitations: no limitations History of Present Illness Date Seen by Provider: October 11, 2017 Time Seen by Provider: 23:50 Initial Comments This 67-year-old gentleman presents to the emergency room with complaints of chest pain, nausea, and vomiting. Symptoms started approximately 3 hours prior to arrival. Patient had a cardiac catheter performed October 04. Zofran 3 mg was administered by EMS. Patient is still nauseated and gagging. He denies any chest pain upon arrival. It had completely resolved. He denies any cough, shortness of air, or other acute signs or symptoms of illness. Fingerstick blood sugar was 202. He is a patient of Dr. Ramos Allergies and Home Medications Allergies Coded Allergies: No Known Drug Allergies (Unverified , 03/17/16) Home Medications Acetaminophen 325 Mg Tablet, 650 MG PO Q4H PRN for PAIN-MILD, (Reported) TAKES 2 (325 MG) TABLETS; MAY ALSO TAKE FOR ELEVATED TEMPERATURE / NOT TO EXCEED 3GM/24HR Apixaban 2.5 Mg Tablet, 2.5 MG PO BID, (Reported) Atorvastatin Calcium 10 Mg Tablet, 10 MG PO HS, (Reported) Budesonide/Formoterol Fumarate 10.2 Gm Hfa.aer.ad, 2 PUFF IH BID, (Reported) Guaifenesin/Dextromethorphan 118 Ml Syrup, 5 ML PO Q4H PRN for COUGH, (Reported) Ibuprofen 200 Mg Capsule, 600 MG PO Q6H PRN for FEVER, (Reported) ALTERNATE WITH ACETAMINOPHEN Q3H PRN / TAKES 3 (200 MG) TABLETS Insulin Aspart 100 Unit/1 Ml Susp, 15 UNIT SQ TID, (Reported) Insulin Determir 1,000 Units/10 Ml Soln, 15 UNITS SQ BID, (Reported) Lisinopril 20 Mg Tablet, 20 MG PO DAILY Prescribed by: ANDREA CONDE on 10/15/17 1118 Loratadine 10 Mg Tablet, 10 MG PO DAILY PRN for ALLERGIES, (Reported) Mag Hydrox/Al Hydrox/Simeth 355 Ml Oral.susp, 30 ML PO Q4H PRN for INDIGESTION, (Reported) Memantine HCl/Donepezil HCl 1 Each Cap.spr.24, 1 CAP PO DAILY, (Reported) Metformin HCl 500 Mg Tablet, 500 MG PO BID, (Reported) Ondansetron 8 Mg Tab.rapdis, 8 MG PO TID PRN for NAUSEA/VOMITING-1ST LINE, ( Reported) Pantoprazole Sodium 40 Mg Tablet.dr, 40 MG PO DAILY, (Reported) ORDERED 10/14/[address] RAMOS / START DATE 10/15/17 Ranitidine HCl 75 Mg Tablet, 75 MG PO HS, (Reported) Patient Home Medication List Home Medication List Reviewed: Yes Review of Systems Constitutional: no symptoms reported EENTM: No Symptoms Reported Respiratory: No Symptoms Reported Cardiovascular: See HPI Gastrointestinal: See HPI Genitourinary: No Symptoms Reported Musculoskeletal: no symptoms reported Skin: no symptoms reported Psychiatric/Neurological: No Symptoms Reported Endocrine: No Symptoms Reported Hematologic/Lymphatic: No Symptoms Reported Past Howkuyd-Ewrchu-Dhikur Hx Patient Social History Alcohol Use: Denies Use Recreational Drug Use: No Smoking Status: Former Smoker Type Used: Cigarettes Former Smoker, Quit: October 05, 2015 Recent Foreign Travel: No Contact w/Someone Who Travel: No Recent Infectious Disease Expo: No Recent Hopitalizations: No Immunizations Up To Date Tetanus Booster (TDap): Unknown Date of Pneumonia Vaccine: October 05, 2007 Seasonal Allergies Seasonal Allergies: No Past Medical History Surgeries: Yes Pacemaker Respiratory: Yes COPD Currently Using CPAP: No Currently Using BIPAP: No Cardiac: Yes (pace maker, bypass x2) Hypertension Neurological: Yes (cva x2) Stroke Reproductive Disorders: No Gastrointestinal: Yes Gastroesophageal Reflux Musculoskeletal: No Endocrine: Yes Diabetes, Insulin dep HEENT: No Cancer: No Psychosocial: Yes Anxiety Integumentary: No Blood Disorders: No Family Medical History Cardiovascular disease 19 FATHER 19 MOTHER G8 BROTHER G8 SISTER Diabetes mellitus 19 FATHER G8 BROTHER FH: lung cancer 19 MOTHER G8 BROTHER G8 SISTER Respiratory disorder 19 MOTHER Physical Exam Vital Signs Vital Signs - First Documented 10/11/17 23:47 Temp 98.4 Pulse 59 Resp 18 B/P (MAP) 200/111 (140) Pulse Ox 96 O2 Delivery Room Air O2 Flow Rate 2.00 Capillary Refill : Less Than 3 Seconds General Appearance: WD/WN, Other (Has some gagging in heaving upon arrival) HEENT: PERRL/EOMI, Normal ENT Inspection, Pharynx Normal Neck: Normal Inspection Respiratory: Lungs Clear, Normal Breath Sounds, No Accessory Muscle Use, No Respiratory Distress Cardiovascular: Regular Rate, Rhythm, No Edema, No Murmur Gastrointestinal: Normal Bowel Sounds, Non Tender, Soft Extremity: Normal Inspection, No Pedal Edema Neurologic/Psychiatric: Alert, Oriented x3, No Motor/Sensory Deficits, Normal Mood/Affect, 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 Norm as Tested Skin: Normal Color, Warm/Dry Progress/Results/Core Measures Results/Orders Lab Results Laboratory Tests Test 10/11/17 23:54 10/12/17 01:12 10/12/17 02:12 Range/Units White Blood Count 14.1 H 4.3-11.0 10^3/uL Red Blood Count 4.94 4.35-5.85 10^6/uL Hemoglobin 12.2 L 13.3-17.7 G/DL Hematocrit 38 L 40-54 % Mean Corpuscular Volume 76 L 80-99 FL Mean Corpuscular Hemoglobin 25 25-34 PG Mean Corpuscular Hemoglobin Concent 32 32-36 G/DL Red Cell Distribution Width 17.2 H 10.0-14.5 % Platelet Count 422 H 130-400 10^3/uL Mean Platelet Volume 10.4 7.4-10.4 FL Neutrophils (%) (Auto) 60 42-75 % Lymphocytes (%) (Auto) 25 12-44 % Monocytes (%) (Auto) 9 0-12 % Eosinophils (%) (Auto) 4 0-10 % Basophils (%) (Auto) 2 0-10 % Neutrophils # (Auto) 8.5 H 1.8-7.8 X 10^3 Lymphocytes # (Auto) 3.6 1.0-4.0 X 10^3 Monocytes # (Auto) 1.2 H 0.0-1.0 X 10^3 Eosinophils # (Auto) 0.6 H 0.0-0.3 10^3/uL Basophils # (Auto) 0.3 H 0.0-0.1 10^3/uL Neutrophils % (Manual) 58 % Lymphocytes % (Manual) 27 % Monocytes % (Manual) 8 % Eosinophils % (Manual) 4 % Basophils % (Manual) 1 % Band Neutrophils 0 % Reactive Lymphocytes 2 % Polychromasia SLIGHT Anisocytosis SLIGHT Prothrombin Time 15.2 H 12.2-14.7 SEC INR Comment 1.2 0.8-1.4 Activated Partial Thromboplast Time 38 H 24-35 SEC Sodium Level 142 135-145 MMOL/L Potassium Level 3.9 3.6-5.0 MMOL/L Chloride Level 109 H 98-107 MMOL/L Carbon Dioxide Level 22 21-32 MMOL/L Anion Gap 11 5-14 MMOL/L Blood Urea Nitrogen 10 7-18 MG/DL Creatinine 1.33 H 0.60-1.30 MG/DL Estimat Glomerular Filtration Rate 53 BUN/Creatinine Ratio 8 Glucose Level 206 H 70-105 MG/DL Calcium Level 9.5 8.5-10.1 MG/DL Magnesium Level 2.1 1.8-2.4 MG/DL Total Bilirubin 0.3 0.1-1.0 MG/DL Aspartate Amino Transf (AST/SGOT) 16 5-34 U/L Alanine Aminotransferase (ALT/SGPT) 9 0-55 U/L Alkaline Phosphatase 93 40-136 U/L Myoglobin 29.9 10.0-92.0 NG/ML Troponin I < 0.30 < 0.30 <0.30 NG/ML C-Reactive Protein High Sensitivity 1.18 H 0.00-0.50 MG/DL B-Type Natriuretic Peptide 58.7 <100.0 PG/ML Total Protein 7.5 6.4-8.2 GM/DL Albumin 4.2 3.2-4.5 GM/DL Urine Color YELLOW Urine Clarity CLEAR Urine pH 7 5-9 Urine Specific [place] 1.010 L 1.016-1.022 Urine Protein 2+ H NEGATIVE Urine Glucose (UA) 1+ H NEGATIVE Urine Ketones NEGATIVE NEGATIVE Urine Nitrite NEGATIVE NEGATIVE Urine Bilirubin NEGATIVE NEGATIVE Urine Urobilinogen NORMAL NORMAL MG/DL Urine Leukocyte Esterase NEGATIVE NEGATIVE Urine RBC (Auto) NEGATIVE NEGATIVE Urine RBC NONE /HPF Urine WBC RARE /HPF Urine Squamous Epithelial Cells NONE /HPF Urine Crystals NONE /LPF Urine Bacteria NEGATIVE /HPF Urine Casts NONE /LPF Urine Mucus SMALL H /LPF Urine Culture Indicated NO Micro Results Microbiology 10/12/17 Influenza Types A,B Antigen (LEEANNA) - Final, Complete My Orders Orders - ROBBY VERA MD Cbc With Automated Diff (10/11/17 23:56) Magnesium (10/11/17 23:56) Chest 1 View, Ap/Pa Only (10/11/17 23:56) Ekg Tracing (10/11/17 23:56) Cardiac Profile 1 (10/11/17 23:56) Comprehensive Metabolic Panel (10/11/17 23:56) Myoglobin Serum (10/11/17 23:56) Protime With Inr (10/11/17 23:56) Partial Thromboplastin Time (10/11/17 23:56) O2 (10/11/17 23:56) Monitor-Rhythm Ecg Trace Only (10/11/17 23:56) Aspirin Chewable Tablet (Baby Aspirin Ch (10/12/17 00:00) Nitroglycerin 0.4 Mg Btl 25's (Nitrostat (10/12/17 00:00) Saline Lock/Iv-Start (10/11/17 23:56) BNP (10/11/17 23:56) Hs C Reactive Protein (10/11/17 23:56) Manual Differential (10/11/17 23:54) Ua Culture If Indicated (10/12/17 01:04) Influenza A And B Antigens (10/12/17 01:04) Troponin I (10/12/17 02:24) Ekg Tracing (10/12/17 02:24) Ondansetron Injection (Zofran Injectio (10/11/17 23:46) Medications Given in ED Vital Signs/I&O 10/11/17 10/11/17 10/11/17 10/12/17 23:47 23:47 23:50 05:29 Temp 98.4 Pulse 59 61 Resp 18 18 B/P (MAP) 200/111 (140) 183/78 Pulse Ox 96 96 94 O2 Delivery Room Air Nasal Cannula Nasal Cannula Nasal Cannula O2 Flow Rate 2.00 2.00 2.00 Blood Pressure Mean: 140 Progress Progress Note : Progress Note Aspirin was administered. An additional 4 mg of Zofran was administered as well for residual nausea. Patient's chest pain resolved shortly after arrival. He did not require nitroglycerin. He was found to have a mild leukocytosis. Evaluation of chest x-ray, influenza screening, and urine revealed no source of infection. Patient remained pain free throughout the rest of his ER visit. A repeat troponin and EKG revealed no evidence of ischemia. Patient was discharged to outpatient follow-up. EKG #1: EKG Time: 23:51 Rate: 60 Comment Atrial paced rhythm with no ST elevation or depression. No axis deviation. EKG #2: EKG Time: 02:14 Rate: 60 Comment Atrial paced rhythm with no ST elevation or depression. No axis deviation. Diagnostic Imaging Diagonstic Imaging: Xray Plain Films/CT/US/NM/MRI: chest Comments Chest x-ray viewed by me. No acute abnormalities were appreciated. Report not yet available. Departure Impression Primary Impression: Chest pain Qualified Codes: R07.9 - Chest pain, unspecified Additional Impressions: Nausea and vomiting Qualified Codes: R11.2 - Nausea with vomiting, unspecified Leukocytosis Qualified Codes: D72.829 - Elevated white blood cell count, unspecified Hypertensive urgency Nocturnal hypoxemia Disposition: 01 HOME, SELF-CARE Condition: Improved Departure-Patient Inst. Decision time for Depature: 03:22 Referrals: ANDRESSA WELCH MD (PCP/Family) Primary Care Physician Patient Instructions: Chest Pain (DC) Add. Discharge Instructions: Drink plenty of clear liquids. Gradually advance your diet with small quantities of bland food as tolerated. Follow-up with your primary care provider as soon as possible. Return to the emergency room if symptoms worsen. Use Zofran as prescribed for nausea and vomiting. Follow-up with your outpatient admitting clerk as soon as possible. Start O2 by nasal canula at 2 L/min while asleep. Consider evaluation by primary care provider for sleep. All discharge instructions reviewed with patient and/or family. Voiced understanding. Copy Copies To 1: ANDRESSA WELCH MD Copies To 2: TL RAMSEY MD, JOSHUA T MD October 12, 2017 03:28
[2017-10-12 05:29] VITALS: BP 183/78
--- NOTE | 2017-10-12 07:29 | Diagnostic Imaging Report ---
Indication: Chest pain Portable chest 12:15 AM There are postop changes from CABG surgery. There is a dual-chamber pacemaker. Heart size and pulmonary vascularity are normal. Lungs are clear. There are no effusions or pneumothoraces. Impression: Postsurgical changes of the chest. No acute abnormality seen. Dictated by: Dictated on workstation # [id number]
[2017-10-15] MEDS ORDERED: METF500T5 PO (10:59)
[2017-10-15] MEDS ORDERED: INSU100V5 SQ (10:59)
[2017-10-15] MEDS ORDERED: PANT40TA3 PO (10:59)
[2017-10-15] MEDS ORDERED: ATOR10TA66 PO (10:59)
[2017-10-15] MEDS ORDERED: LISI-552 PO (11:18)
== END 2017-10-12 04:13 | disposition home or self-care (01) ==
LOC: EDUNIT# 23:48 → ER 23:50
DX: R07.9 Chest pain, unspecified (principal); R11.2 Nausea with vomiting, unspecified; D72.829 Elevated white blood cell count, unspecified; I16.0 Hypertensive urgency; R09.02 Hypoxemia; J44.9 Chronic obstructive pulmonary disease, unspecified; I10 Essential (primary) hypertension; K21.9 Gastro-esophageal reflux disease without esophagitis; E11.9 Type 2 diabetes mellitus without complications; F41.9 Anxiety disorder, unspecified; Z80.1 Family history of malignant neoplasm of trachea, bronchus and lung; Z82.49 Family history of ischemic heart disease and other diseases of the circulatory system; Z86.73 Personal history of transient ischemic attack (TIA), and cerebral infarction without residual deficits; Z79.01 Long term (current) use 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s; Z79.4 Long term (current) use of insulin; Z87.891 Personal history of nicotine dependence; Z95.0 Presence of cardiac pacemaker
CPT/HCPCS: 36415; 71045; 80053; 81000; 83735; 83874; 83880; 84484; 85007; 85027; 85610; 85730; 86141; 87804; 93005; 93041

== ENCOUNTER 2017-10-24 18:33 | Day surgery (SDC) | payer MEDICAID ==
[2017-10-24] VITALS (7 sets, daily range): BP systolic 169–195; BP diastolic 72–80
[~2017-10-24] VITALS: Ht 167.6 cm; Wt 84.4 kg
[~2017-10-24 18:33] MED LIST changes: +ATOR10TA66 PO; +INSU100V5 SQ; +LISI-552 PO; +ONDA4TAB8 SL; -ONDANSETRON 4 MG/2 ML (SDV) Z0FRAN ONE; +PANT40TA3 PO
[2017-10-24 18:44] LABS: BASOPHILS # (AUTO) 0.3 10^3/uL (0.0-0.1); BASOPHILS % (AUTO) 2 % (0-10); EOSINOPHILS # (AUTO) 0.7 10^3/uL (0.0-0.3); EOSINOPHILS % (AUTO) 4 % (0-10); HEMATOCRIT 39 % (40-54); HEMOGLOBIN 12.4 G/DL (13.3-17.7); LYMPHOCYTES # (AUTO) 7.3 X 10^3 (1.0-4.0); LYMPHOCYTES % (AUTO) 43 % (12-44); MEAN CORPUSCULAR HEMOGLOBIN 24 PG (25-34); MEAN CORPUSCULAR HGB CONC 32 G/DL (32-36); MEAN CORPUSCULAR VOLUME 76 FL (80-99); MEAN PLATELET VOLUME 10.5 FL (7.4-10.4); MONOCYTES # (AUTO) 1.6 X 10^3 (0.0-1.0); MONOCYTES % (AUTO) 9 % (0-12); NEUTROPHILS # (AUTO) 6.9 X 10^3 (1.8-7.8); NEUTROPHILS % (AUTO) 41 % (42-75); PLATELET COUNT 325 10^3/uL (130-400); RED BLOOD COUNT 5.12 10^6/uL (4.35-5.85); RED CELL DISTRIBUTION WIDTH 17.1 % (10.0-14.5); WHITE BLOOD COUNT 16.7 10^3/uL (4.3-11.0)
[2017-10-24] MEDS ORDERED: ASPIRIN 81 MG CHEW (CHILDREN'S ASA) PO ONE (18:45)
[2017-10-24 18:57] LABS: BAND NEUTROPHILS 0 %; BASOPHILS % (MANUAL) 0 %; EOSINOPHILS % (MANUAL) 4 %; INR 1.2 (0.8-1.4); LYMPHOCYTES % (MANUAL) 49 %; MONOCYTES % (MANUAL) 7 %; NEUTROPHILS % (MANUAL) 40 %; PROTHROMBIN TIME PATIENT 15.1 SEC (12.2-14.7); RBC MORPH NORMAL
[2017-10-24 19:07] LABS: ALANINE AMINOTRANSFERASE 13 U/L (0-55); ALBUMIN 4.1 GM/DL (3.2-4.5); ALKALINE PHOSPHATASE 94 U/L (40-136); AMYLASE 87 U/L (25-125); BILIRUBIN,TOTAL 0.3 MG/DL (0.1-1.0); BUN/CREATININE RATIO 7; CARBON DIOXIDE 21 MMOL/L (21-32); CHLORIDE 106 MMOL/L (98-107); CREATINE KINASE 86 U/L (30-200); CREATININE SERUM 1.23 MG/DL (0.60-1.30); GFR ESTIMATED 58; GLUCOSE 187 MG/DL (70-105); LIPASE 39 U/L (8-78); MAGNESIUM 1.9 MG/DL (1.8-2.4); SODIUM 138 MMOL/L (135-145); TOTAL PROTEIN 7.3 GM/DL (6.4-8.2)
--- NOTE | 2017-10-24 19:07 | Diagnostic Imaging Report ---
INDICATION: Chest pain. COMPARISON: 10/14/2017. FINDINGS: Single view of the chest demonstrates stable cardiac enlargement. Lungs remain clear. There is no pneumothorax. Sternal wires are midline. Pacemaker is stable. IMPRESSION: Stable cardiac enlargement without pulmonary edema or infiltrate. Dictated by: Dictated on workstation # [id number]
[2017-10-24 19:13] LABS: CREATINE KINASE MB 2.4 NG/ML (<6.6)
--- NOTE | 2017-10-24 19:22 | ED Chest Pain ---
General Chief Complaint: Chest Pain Stated Complaint: CP Nursing Triage Note: PT ARRIVED PER EMS, PT CO OF CHEST PAIN AT 1800 AFTER EATING AT 1730. PT DENIES C/P AT THIS X, Nursing Sepsis Screen: No Definite Risk Source: patient, longterm records, old records History of Present Illness Date Seen by Provider: October 24, 2017 Time Seen by Provider: 18:34 Initial Comments PT ARRIVES VIA EMS FROM VIA [facility] PT STATES HE BEGAN HAVING CENTER AND LEFT MID CHEST PAIN JUST AFTER EATING DINNER TONIGHT--JUST PRIOR TO ARRIVAL PAIN LASTED LESS THAN 15 MINUTES, AND IS COMPLETELY GONE NOW + DIZZINESS + SWEATS SLIGHT SHORTNESS OF BREATH NO NAUSEA/VOMITING NO SWELLING IN LEGS/ FEET OR PAIN IN CALVES NO PALPITATIONS HAS HISTORY OF SAME, AND HAS HAD CARDIAC CATH WITH STENT AND CABG PT HAS HAD 5 VISITS SINCE 08/19/17--ALL EXCEPT 1 FOR CHEST PAIN LAST VISIT 10/14 AND WAS ADMITTED HAD CARDIAC CATH 10/04/17--NO INTERVENTION PCP: [facility], DR. [employer] : DR. LESTER Allergies and Home Medications Allergies Coded Allergies: No Known Drug Allergies (Unverified , 03/17/16) Home Medications Acetaminophen 325 Mg Tablet, 650 MG PO Q4H PRN for PAIN-MILD, (Reported) TAKES 2 (325 MG) TABLETS; MAY ALSO TAKE FOR ELEVATED TEMPERATURE / NOT TO EXCEED 3GM/24HR Apixaban 2.5 Mg Tablet, 2.5 MG PO BID, (Reported) Atorvastatin Calcium 10 Mg Tablet, 10 MG PO HS, (Reported) Budesonide/Formoterol Fumarate 10.2 Gm Hfa.aer.ad, 2 PUFF IH BID, (Reported) Guaifenesin/Dextromethorphan 118 Ml Syrup, 5 ML PO Q4H PRN for COUGH, (Reported) Ibuprofen 200 Mg Capsule, 600 MG PO Q6H PRN for FEVER, (Reported) ALTERNATE WITH ACETAMINOPHEN Q3H PRN / TAKES 3 (200 MG) TABLETS Insulin Aspart 100 Unit/1 Ml Susp, 15 UNIT SQ TID, (Reported) Insulin Determir 1,000 Units/10 Ml Soln, 15 UNITS SQ BID, (Reported) Lisinopril 20 Mg Tablet, 20 MG PO DAILY Prescribed by: ANDREA CONDE on 10/15/17 1118 Loratadine 10 Mg Tablet, 10 MG PO DAILY PRN for ALLERGIES, (Reported) Mag Hydrox/Al Hydrox/Simeth 355 Ml Oral.susp, 30 ML PO Q4H PRN for INDIGESTION, (Reported) Memantine HCl/Donepezil HCl 1 Each Cap.spr.24, 1 CAP PO DAILY, (Reported) Metformin HCl 500 Mg Tablet, 500 MG PO BID, (Reported) Ondansetron 8 Mg Tab.rapdis, 8 MG PO TID PRN for NAUSEA/VOMITING-1ST LINE, ( Reported) Pantoprazole Sodium 40 Mg Tablet.dr, 40 MG PO DAILY, (Reported) ORDERED 10/14/[address] RAMOS / START DATE 10/15/17 Ranitidine HCl 75 Mg Tablet, 75 MG PO HS, (Reported) Patient Home Medication List Home Medication List Reviewed: Yes Review of Systems Constitutional: see HPI, diaphoresis, dizziness EENTM: No Symptoms Reported Respiratory: See HPI, Shortness of Air Cardiovascular: See HPI, Chest Pain; Denies Edema, Denies Irregular Heart Rate ; Lightheadedness; Denies Palpitations, Denies Syncope Gastrointestinal: No Symptoms Reported; Denies Abdominal Pain, Denies Nausea, Denies Vomiting Genitourinary: No Symptoms Reported Musculoskeletal: no symptoms reported; No back pain Skin: no symptoms reported Psychiatric/Neurological: No Symptoms Reported Endocrine: No Symptoms Reported Hematologic/Lymphatic: No Symptoms Reported Past Syhmvkg-Orfwrb-Rwdcec Hx Patient Social History Alcohol Use: Denies Use Recreational Drug Use: No Smoking Status: Former Smoker (1 PPD) Type Used: Cigarettes Former Smoker, Quit: October 05, 2015 Recent Foreign Travel: No Contact w/Someone Who Travel: No Recent Infectious Disease Expo: No Recent Hopitalizations: Yes (chest pain) Physical Abuse: No Sexual Abuse: No Immunizations Up To Date Tetanus Booster (TDap): Unknown Date of Pneumonia Vaccine: October 05, 2007 Seasonal Allergies Seasonal Allergies: No Past Medical History Surgeries: Yes Cardiac, CABG, Coronary Stent, Pacemaker Respiratory: Yes (DVT/PE--ON LIFELONG ANTICOAGULATION) Pulmonary Embolism, COPD Currently Using CPAP: No Currently Using BIPAP: No Cardiac: Yes (pace maker, bypass x2; DVT/PE-ON LIF[place] ANTICOAGULATION; LAST CATH 10/04/17--NO INTERVENTION) Coronary Artery Disease, Deep Vein Thrombosis, Hypertension Neurological: Yes (CVA X 2) Dementia, Stroke Reproductive Disorders: No Genitourinary: No Gastrointestinal: Yes Gastroesophageal Reflux Musculoskeletal: No Endocrine: Yes Diabetes, Insulin dep HEENT: No Cancer: No Psychosocial: Yes Anxiety, Schizophrenia Nursing Suicide Risk Score: 0 Integumentary: No Blood Disorders: No Family Medical History Cardiovascular disease 19 FATHER 19 MOTHER G8 BROTHER G8 SISTER Diabetes mellitus 19 FATHER G8 BROTHER FH: lung cancer 19 MOTHER G8 BROTHER G8 SISTER Respiratory disorder 19 MOTHER Physical Exam Vital Signs Vital Signs - First Documented 10/24/17 18:33 Temp 96.9 Pulse 68 Resp 18 B/P (MAP) 186/74 (111) Pulse Ox 96 O2 Delivery Room Air Capillary Refill : Less Than 3 Seconds General Appearance: No Apparent Distress, WD/WN HEENT: PERRL/EOMI, Other (EDENTULOUS, CONSTANT LIP LICKING AND TONGUE AND MOUTH MOVEMENTS) Respiratory: Chest Non Tender, Normal Breath Sounds, No Accessory Muscle Use, No Respiratory Distress Cardiovascular: Regular Rate, Rhythm, No Edema, No JVD, No Murmur, Normal Peripheral Pulses Gastrointestinal: Normal Bowel Sounds, No Organomegaly, No Pulsatile Mass, Non Tender, Soft Extremity: Normal Capillary Refill, Normal Inspection, Normal Range of Motion, Non Tender, No Calf Tenderness, No Pedal Edema Neurologic/Psychiatric: Alert, Oriented x3, No Motor/Sensory Deficits, Normal 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, 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 as Tested Skin: Normal Color, Warm/Dry Progress/Results/Core Measures Results/Orders Lab Results Laboratory Tests Test 10/24/17 18:35 Range/Units White Blood Count 16.7 H 4.3-11.0 10^3/uL Red Blood Count 5.12 4.35-5.85 10^6/uL Hemoglobin 12.4 L 13.3-17.7 G/DL Hematocrit 39 L 40-54 % Mean Corpuscular Volume 76 L 80-99 FL Mean Corpuscular Hemoglobin 24 L 25-34 PG Mean Corpuscular Hemoglobin Concent 32 32-36 G/DL Red Cell Distribution Width 17.1 H 10.0-14.5 % Platelet Count 325 130-400 10^3/uL Mean Platelet Volume 10.5 H 7.4-10.4 FL Neutrophils (%) (Auto) 41 L 42-75 % Lymphocytes (%) (Auto) 43 12-44 % Monocytes (%) (Auto) 9 0-12 % Eosinophils (%) (Auto) 4 0-10 % Basophils (%) (Auto) 2 0-10 % Neutrophils # (Auto) 6.9 1.8-7.8 X 10^3 Lymphocytes # (Auto) 7.3 H 1.0-4.0 X 10^3 Monocytes # (Auto) 1.6 H 0.0-1.0 X 10^3 Eosinophils # (Auto) 0.7 H 0.0-0.3 10^3/uL Basophils # (Auto) 0.3 H 0.0-0.1 10^3/uL Neutrophils % (Manual) 40 % Lymphocytes % (Manual) 49 % Monocytes % (Manual) 7 % Eosinophils % (Manual) 4 % Basophils % (Manual) 0 % Band Neutrophils 0 % Blood Morphology Comment NORMAL Prothrombin Time 15.1 H 12.2-14.7 SEC INR Comment 1.2 0.8-1.4 Activated Partial Thromboplast Time 33 24-35 SEC Sodium Level 138 135-145 MMOL/L Potassium Level 4.0 3.6-5.0 MMOL/L Chloride Level 106 98-107 MMOL/L Carbon Dioxide Level 21 21-32 MMOL/L Anion Gap 11 5-14 MMOL/L Blood Urea Nitrogen 9 7-18 MG/DL Creatinine 1.23 0.60-1.30 MG/DL Estimat Glomerular Filtration Rate 58 BUN/Creatinine Ratio 7 Glucose Level 187 H 70-105 MG/DL Calcium Level 9.0 8.5-10.1 MG/DL Magnesium Level 1.9 1.8-2.4 MG/DL Total Bilirubin 0.3 0.1-1.0 MG/DL Aspartate Amino Transf (AST/SGOT) 18 5-34 U/L Alanine Aminotransferase (ALT/SGPT) 13 0-55 U/L Alkaline Phosphatase 94 40-136 U/L Total Creatine Kinase 86 30-200 U/L Creatine Kinase MB 2.4 <6.6 NG/ML Troponin I < 0.30 <0.30 NG/ML B-Type Natriuretic Peptide 48.0 <100.0 PG/ML Total Protein 7.3 6.4-8.2 GM/DL Albumin 4.1 3.2-4.5 GM/DL Amylase Level 87 25-125 U/L Lipase 39 8-78 U/L My Orders Orders - CELSA BISHOP DO Amylase (10/24/17 18:35) Cbc With Automated Diff (10/24/17 18:35) Comprehensive Metabolic Panel (10/24/17 18:35) Creatine Kinase (10/24/17 18:35) Creatine Kinase Mb (10/24/17 18:35) Lipase (10/24/17 18:35) Partial Thromboplastin Time (10/24/17 18:35) Protime With Inr (10/24/17 18:35) Troponin I (10/24/17 18:35) Chest 1 View, Ap/Pa Only (10/24/17 18:35) O2 (10/24/17 18:35) Ekg Tracing (10/24/17 18:35) Aspirin Chewable Tablet (Baby Aspirin Ch (10/24/17 18:45) BNP (10/24/17 18:35) Monitor-Rhythm Ecg Trace Only (10/24/17 18:35) Magnesium (10/24/17 18:35) Manual Differential (10/24/17 18:35) Nitroglycerin Ointment (Nitrobid Ointme (10/24/17 19:45) Medications Given in ED Vital Signs/I&O 10/24/17 18:33 Temp 96.9 Pulse 68 Resp 18 B/P (MAP) 186/74 (111) Pulse Ox 96 O2 Delivery Room Air Blood Pressure Mean: 111 Progress Progress Note : Progress Note NO PAIN OR ANY OTHER SYMPTOMS DURING ER STAY PT GIVEN NITROPASTE FOR HTN AND BP DOWN AT TIME OF ADMIT Initial ECG Impression Date: October 24, 2017 Initial ECG Impression Time: 18:45 Initial ECG Rate: 60 Initial ECG Comparisson: Unchanged Comment ATRIAL PACED RHYTHM Diagnostic Imaging Comments CXR--NO ACUTE PROCESS, PER RADIOLOGIST REPORT @ 1921 Reviewed: Reviewed by Me Departure Communication (Admissions) 1922--SPOKE WITH DR. SALINAS, ACCEPTS PT FOR ADMIT Impression Primary Impression: Chest pain Additional Impressions: Hypertension COPD (chronic obstructive pulmonary disease) with acute bronchitis IDDM (insulin dependent diabetes mellitus) Hx of coronary artery disease Disposition: ADMITTED INPATIENT Condition: Stable Admissions Decision to Admit Reason: Admit from ER (General) Decision to Admit/Date: October 24, 2017 Time/Decision to Admit Time: 19:25 Departure-Patient Inst. Referrals: ANDRESSA WELCH MD (PCP/Family) Primary Care Physician CELSA BISHOP DO October 24, 2017 19:22
[2017-10-24] MEDS ORDERED: NITROGLYCERIN 2% OINT 1 GM UNIT DOSE PACKET TOP ONE (19:45)
[2017-10-24] MEDS ORDERED: hydrALAZINE (APRESOLINE) 25 MG TAB PO PRN (22:15)
[2017-10-24] MEDS ORDERED: morphine INJ 4 MG/ML 1 ML (VIAL/SYRINGE) IV PRN (22:15)
[2017-10-24] MEDS ORDERED: NITROGLYCERIN 0.4 MG SL TABS BTL 25'S SL PRN (22:15)
[2017-10-24] MEDS ORDERED: lisINopril 20 MG (PRINIVIL) TABLET ONE (22:27)
[2017-10-24] MEDS: lisINopril 20 MG (PRINIVIL) TABLET PO SCH (22:38)
[2017-10-25] VITALS (8 sets, daily range): BP systolic 136–180; BP diastolic 65–82
[2017-10-25] MEDS: NITROGLYCERIN 2% OINT 1 GM UNIT DOSE PACKET TOP SCH ×4 (02:18→20:55)
[2017-10-25 04:00] LABS: BASOPHILS # (AUTO) 0.1 10^3/uL (0.0-0.1); BASOPHILS % (AUTO) 1 % (0-10); EOSINOPHILS # (AUTO) 0.2 10^3/uL (0.0-0.3); EOSINOPHILS % (AUTO) 1 % (0-10); HEMATOCRIT 39 % (40-54); HEMOGLOBIN 12.5 G/DL (13.3-17.7); LYMPHOCYTES # (AUTO) 2.5 X 10^3 (1.0-4.0); LYMPHOCYTES % (AUTO) 17 % (12-44); MEAN CORPUSCULAR HEMOGLOBIN 24 PG (25-34); MEAN CORPUSCULAR HGB CONC 32 G/DL (32-36); MEAN CORPUSCULAR VOLUME 75 FL (80-99); MEAN PLATELET VOLUME 10.6 FL (7.4-10.4); MONOCYTES # (AUTO) 1.3 X 10^3 (0.0-1.0); MONOCYTES % (AUTO) 9 % (0-12); NEUTROPHILS # (AUTO) 10.9 X 10^3 (1.8-7.8); NEUTROPHILS % (AUTO) 73 % (42-75); PLATELET COUNT 279 10^3/uL (130-400); RED BLOOD COUNT 5.15 10^6/uL (4.35-5.85); RED CELL DISTRIBUTION WIDTH 16.7 % (10.0-14.5)
[2017-10-25 04:22] LABS: ALANINE AMINOTRANSFERASE 155 U/L (0-55); ALBUMIN 4.1 GM/DL (3.2-4.5); ALKALINE PHOSPHATASE 140 U/L (40-136); BILIRUBIN,TOTAL 1.4 MG/DL (0.1-1.0); BUN/CREATININE RATIO 8; CALCIUM 8.9 MG/DL (8.5-10.1); CARBON DIOXIDE 20 MMOL/L (21-32); CHLORIDE 103 MMOL/L (98-107); CHOLESTEROL 122 MG/DL (< 200); CREATINE KINASE 66 U/L (30-200); CREATININE SERUM 1.09 MG/DL (0.60-1.30); GFR ESTIMATED > 60; GLUCOSE 281 MG/DL (70-105); HDL CHOLESTEROL 41 MG/DL (40-60); POTASSIUM 4.1 MMOL/L (3.6-5.0); SODIUM 136 MMOL/L (135-145); TOTAL PROTEIN 7.4 GM/DL (6.4-8.2); TRIGLYCERIDES 106 MG/DL (<150); VLDL CHOLESTEROL 21 MG/DL (5-40)
[2017-10-25 04:28] LABS: MYOGLOBIN SERUM 33.7 NG/ML (10.0-92.0)
[2017-10-25] MEDS ORDERED: ONDANSETRON 4 MG/2 ML (SDV) Z0FRAN IVP PRN (05:45)
[2017-10-25] MEDS: inSUlin ASPART (NovoLOG) 1 UNIT/0.01 ML (CHARGE PER UNIT) SC SCH ×4 (06:41→21:05)
--- NOTE | 2017-10-25 07:59 | Diagnostic Imaging Report ---
INDICATION: Chest pain and shortness of air. Time of exam: 10:21 PM Correlation is made with prior study from 10/24/2017. Changes of median sternotomy are noted. Cardiac pacemaker remains in place. No infiltrate or failure is detected. No effusion or pneumothorax is seen. IMPRESSION: No acute cardiopulmonary process is detected. Dictated by: Dictated on workstation # [id number]
[2017-10-25] MEDS: lisINopril 20 MG (PRINIVIL) TABLET PO SCH (09:28)
[2017-10-25] MEDS: ASPIRIN E.C. 325 MG (ECOTRIN) TABLET PO SCH (09:28)
--- NOTE | 2017-10-25 09:48 | Diagnostic Imaging Report ---
PROCEDURE: US Gallbladder. TECHNIQUE: Multiple real-time grayscale images were obtained over the right upper quadrant in various projections. INDICATION: Abdominal pain and elevated liver enzymes. The liver demonstrates homogeneous echotexture. The liver is 13 cm in size. No discrete liver mass is identified. Multiple echogenic foci within the gallbladder are identified suggestive of stones. Gallbladder wall is borderline in thickness at 3 mm. No definite biliary duct dilatation is seen. The pancreas is obscured. The right kidney is unremarkable. There is no ascites. IMPRESSION: Findings suggestive of cholelithiasis and gallbladder sludge, some of which appears to be non-mobile near the gallbladder neck. The gallbladder wall is borderline in thickness at 3 mm as well and the possibility of cholecystitis cannot be excluded. If there is concern for acute cholecystitis, nuclear medicine hepatobiliary scan could be performed. Dictated by: Dictated on workstation # [id number]
[2017-10-25] MEDS ORDERED: RANI-514 PO (11:58)
[2017-10-25] MEDS ORDERED: LISI-552 PO (11:58)
[2017-10-25] MEDS ORDERED: ESCI10TA PO (11:58)
--- NOTE | 2017-10-25 13:22 | Consultation-Cardiology ---
HPI-Cardiology Cardiology Consultation Date of Consultation 10/25/17 Date of Admission Time Seen by Provider: 13:21 Indication: Chest pain HPI Patient is a 67 y/o male with history of CAD with CABGx2, HTN, HLP. Presented to the ER last night with complaints of CP shortly after eating dinner. Reports associated epigastric abdominal pain. Denies any active CP at this time. Underwent cardiac cath earlier this month revealing patent bypass grafts. Further workup revealed elevated LFT's and cholelithiasis with sludge on GB ultrasound. Denies any nausea or vomiting. Denies F/C/NS. 67 years old gentleman with history of coronary artery disease, hypertension, permanent pacemaker, admitted with abdominal pain. Diagnosed with gallstones and scheduled for cholecystectomy. He is currently feeling better still having mild abdominal discomfort. Home Medications & Allergies Allergies: Coded Allergies: No Known Drug Allergies (Unverified , 03/17/16) Home Medication List Reviewed: Yes VXU-Lqjasa-Lgglel Hx Patient Social History Alcohol Use: Denies Use Recreational Drug Use: No Smoking Status: Former Smoker Type Used: Cigarettes Recent Foreign Travel: No Recent Infectious Disease Expo: No Recent Hopitalizations: Yes Physical Abuse Screen: No Sexual Abuse: No Immunizations Up To Date Tetanus Booster (TDap): Unknown Date of Pneumonia Vaccine: October 05, 2007 Past Medical History CAD, HTN, HLP, DM Family Medical History Significant Family History: No Pertinent Family Hx Family History: Cardiovascular disease 19 FATHER 19 MOTHER G8 BROTHER G8 SISTER Diabetes mellitus 19 FATHER G8 BROTHER FH: lung cancer 19 MOTHER G8 BROTHER G8 SISTER Respiratory disorder 19 MOTHER Constitutional: No chills, No diaphoresis, No dizziness, No fever; malaise EENTM: No hearing loss, No blurred vision, No double vision, No vision loss, No nose pain, No throat pain Respiratory: No cough, No dyspnea on exertion, No short of breath Cardiovascular: chest pain; No edema; Hx of Intervention; No palpitations; vascular heart diseas Gastrointestinal: abdominal pain (epigastric); No constipation, No diarrhea Genitourinary: No dysuria, No frequency, No hematuria Musculoskeletal: No back pain, No joint pain Skin: No lesions, No rash Psychiatric/Neurological: Denies Anxiety, Denies Depressed Reviewed Test Results Reviewed Test Results Lab Laboratory Tests 10/24/17 18:35: White Blood Count 16.7H, Red Blood Count 5.12, Hemoglobin 12.4L, Hematocrit 39L , Mean Corpuscular Volume 76L, Mean Corpuscular Hemoglobin 24L, Mean Corpuscular Hemoglobin Concent 32, Red Cell Distribution Width 17.1H, Platelet Count 325, Mean Platelet Volume 10.5H, Neutrophils (%) (Auto) 41L, Lymphocytes ( %) (Auto) 43, Monocytes (%) (Auto) 9, Eosinophils (%) (Auto) 4, Basophils (%) ( Auto) 2, Neutrophils # (Auto) 6.9, Lymphocytes # (Auto) 7.3H, Monocytes # (Auto ) 1.6H, Eosinophils # (Auto) 0.7H, Basophils # (Auto) 0.3H, Neutrophils % ( Manual) 40, Lymphocytes % (Manual) 49, Monocytes % (Manual) 7, Eosinophils % ( Manual) 4, Basophils % (Manual) 0, Band Neutrophils 0, Blood Morphology Comment NORMAL, Prothrombin Time 15.1H, INR Comment 1.2, Activated Partial Thromboplast Time 33, Sodium Level 138, Potassium Level 4.0, Chloride Level 106, Carbon Dioxide Level 21, Anion Gap 11, Blood Urea Nitrogen 9, Creatinine 1.23, Estimat Glomerular Filtration Rate 58, BUN/Creatinine Ratio 7, Glucose Level 187H, Calcium Level 9.0, Magnesium Level 1.9, Total Bilirubin 0.3, Aspartate Amino Transf (AST/SGOT) 18, Alanine Aminotransferase (ALT/SGPT) 13, Alkaline Phosphatase 94, Total Creatine Kinase 86, Creatine Kinase MB 2.4, Troponin I < 0.30, B-Type Natriuretic Peptide 48.0, Total Protein 7.3, Albumin 4.1, Amylase Level 87, Lipase 39 10/24/17 22:13: Glucometer 186H 10/25/17 03:55: White Blood Count 15.0H, Red Blood Count 5.15, Hemoglobin 12.5L, Hematocrit 39L , Mean Corpuscular Volume 75L, Mean Corpuscular Hemoglobin 24L, Mean Corpuscular Hemoglobin Concent 32, Red Cell Distribution Width 16.7H, Platelet Count 279, Mean Platelet Volume 10.6H, Neutrophils (%) (Auto) 73, Lymphocytes (% ) (Auto) 17, Monocytes (%) (Auto) 9, Eosinophils (%) (Auto) 1, Basophils (%) ( Auto) 1, Neutrophils # (Auto) 10.9H, Lymphocytes # (Auto) 2.5, Monocytes # (Auto ) 1.3H, Eosinophils # (Auto) 0.2, Basophils # (Auto) 0.1, Sodium Level 136, Potassium Level 4.1, Chloride Level 103, Carbon Dioxide Level 20L, Anion Gap 13 , Blood Urea Nitrogen 9, Creatinine 1.09, Estimat Glomerular Filtration Rate > 60, BUN/Creatinine Ratio 8, Glucose Level 281H, Calcium Level 8.9, Total Bilirubin 1.4H, Aspartate Amino Transf (AST/SGOT) 268H, Alanine Aminotransferase (ALT/SGPT) 155H, Alkaline Phosphatase 140H, Total Creatine Kinase 66, Troponin I < 0.30, Total Protein 7.4, Albumin 4.1, Myoglobin 33.7, Triglycerides Level 106, Cholesterol Level 122, LDL Cholesterol Direct 68, VLDL Cholesterol 21, HDL Cholesterol 41 10/25/17 05:20: Glucometer 259H 10/25/17 11:01: Glucometer 268H Physical Exam Vital Signs Vital Signs - First Documented 10/24/17 10/24/17 18:33 20:23 Temp 96.9 Pulse 68 Resp 18 B/P (MAP) 186/74 (111) Pulse Ox 96 O2 Delivery Room Air O2 Flow Rate 2.00 Capillary Refill : Less Than 3 Seconds General Appearance: No Apparent Distress, WD/WN Neck: Non Tender, Supple Respiratory: Chest Non Tender, Lungs Clear Cardiovascular: Regular Rate, Rhythm, No Edema, No Gallop, No JVD, No Murmur Gastrointestinal: Non Tender, Soft Rectal: Deferred Back: No CVA Tenderness Neurologic/Psychiatric: Alert, Oriented x3, flavor tank tender II-XII Norm as Tested A/P-Cardiology Admission Diagnosis CP CAD HTN HLP Assessment/Plan Chest pain, nonspecific etiology. EKG reveals no acute ST changes, cardiac enzymes negative. Underwent cardiac cath on 10/04/17 revealing patent bypass to RCA, patent VIEIRA to LAD. Chest pain probably secondary to cholelithiasis. Dr. Ruffin consulted for further management CAD- underwent cardiac cath 10/04/17 revealing patent VIEIRA to LAD, patent VG to RCA SSS s/p PPM- Medtronic pacemaker placed by Dr. Muro in 2007. No recent interrogation done.I will request interrogation for further review. Elevated LFT's- likely secondary to cholelithiasis Cholelithiasis- Dr. Ruffin consulted for further management. Dyspnea, history of DVT, maintained on Eliquis. Will hold Eliquis in anticipation of surgery with Dr. Ruffin. Hypertension, continue current medication monitor blood pressure COPD, maintained on Symbicort Diabetes mellitus, followed and managed by primary care physician History of schizophrenia. Dementia. Thank you for allowing us to participate in the management of Mr. Bray. This is Hortensia Holder PA-C as a scribe for Dr. Esparza. This is Dr. Esparza, I have seen and evaluated the patient with Hortensia. He is a 67 years old gentleman with history of chest pain and coronary artery disease , had patent VIEIRA to LAD and vein graft to the right coronary artery, had underlying sick sinus syndrome and permanent pacemaker which was evaluated today and showed good sensing and capture activity. Patient has cholelithiasis and scheduled for possible cholecystectomy. Patient took his oral anticoagulation Eliquis last night, I recommend holding Eliquis for 48 hours prior to the abdominal surgery. He is considered at intermediate risk for perioperative cardiovascular complications, decision regarding the surgery, risks versus benefit is deferred to the surgeon. Clinical Quality Measures AMI/AHF: ASA po Prior to arrival: No DVT/VTE Risk/Contraindication: Risk Factor Score Per Nursin RFS Level Per Nursing on Admit: 2=Moderate HORTENSIA MENDOZA October 25, 2017 1:22 pm TL ESPARZA MD October 25, 2017 3:45 pm
[2017-10-25] MEDS ORDERED: LORATADINE (CLARITIN) 10 MG TAB PO PRN (13:30)
[2017-10-25] MEDS ORDERED: ANTACID SUSP 30 ML UDC (MYLANTA) PO PRN (14:30)
--- NOTE | 2017-10-25 15:45 | History & Physicial ([facility]) ---
HPI History of Present Illness: 67 yo male sent to ER from [facility] due to chest pain. He reports it was resolved by arrival and has not recurred. He had nausea, and epigastric/chest pain just after dinner yesterday. He does have significant CAD but recently had cath with patent stents. He denies any current concerns. Source: patient Date seen by provider: October 25, 2017 Time Seen by Provider: 11:23 Attending Physician Mee Kuo MD PCP Mee Kuo MD Consult Date of Admission October 24, 2017 at 7:40 pm Home Medications Home Medications Reviewed patient Home Medication Reconciliation performed by pharmacy medication reconciliations crane service technician and/or nursing. Patients Allergies have been reviewed. Allergies Coded Allergies: No Known Drug Allergies (Unverified , 03/17/16) JWI-Gjjulj-Geasar Hx Patient Social History Alcohol Use: Denies Use Recreational Drug Use: No Smoking Status: Former Smoker Type Used: Cigarettes Recent Foreign Travel: No Contact w/other who traveled: No Recent Hopitalizations: Yes Recent Infectious Disease Expo: No Physical Abuse Screen: No Sexual Abuse: No Immunizations Up To Date Tetanus Booster (TDap): Unknown Date of Pneumonia Vaccine: October 05, 2007 Past Medical History CAD s/p CABG PACEMAKER PRIOR DVT/PE, ON ANTICOAGULATION POSSIBLE CVA PER CLINIC RECORDS COPD SCHIZOPHRENIA HTN DMT2 Family Medical History Family History: Cardiovascular disease 19 FATHER 19 MOTHER G8 BROTHER G8 SISTER Diabetes mellitus 19 FATHER G8 BROTHER FH: lung cancer 19 MOTHER G8 BROTHER G8 SISTER Respiratory disorder 19 MOTHER Review of Systems ([facility]) Constitutional: diaphoresis EENTM: no symptoms reported Respiratory: No short of breath Cardiovascular: see HPI Gastrointestinal: No abdominal pain, No constipation, No diarrhea; nausea, vomiting Genitourinary: no symptoms reported Musculoskeletal: no symptoms reported Skin: no symptoms reported Psychiatric/Neurological: No Symptoms Reported Reviewed Test Results Reviewed Test Results Lab Laboratory Tests Test 10/24/17 18:35 10/24/17 22:13 10/25/17 03:55 10/25/17 05:20 Range/Units White Blood Count 16.7 H 15.0 H 4.3-11.0 10^3/uL Red Blood Count 5.12 5.15 4.35-5.85 10^6/uL Hemoglobin 12.4 L 12.5 L 13.3-17.7 G/DL Hematocrit 39 L 39 L 40-54 % Mean Corpuscular Volume 76 L 75 L 80-99 FL Mean Corpuscular Hemoglobin 24 L 24 L 25-34 PG Mean Corpuscular Hemoglobin Concent 32 32 32-36 G/DL Red Cell Distribution Width 17.1 H 16.7 H 10.0-14.5 % Platelet Count 325 279 130-400 10^3/uL Mean Platelet Volume 10.5 H 10.6 H 7.4-10.4 FL Neutrophils (%) (Auto) 41 L 73 42-75 % Lymphocytes (%) (Auto) 43 17 12-44 % Monocytes (%) (Auto) 9 9 0-12 % Eosinophils (%) (Auto) 4 1 0-10 % Basophils (%) (Auto) 2 1 0-10 % Neutrophils # (Auto) 6.9 10.9 H 1.8-7.8 X 10^3 Lymphocytes # (Auto) 7.3 H 2.5 1.0-4.0 X 10^3 Monocytes # (Auto) 1.6 H 1.3 H 0.0-1.0 X 10^3 Eosinophils # (Auto) 0.7 H 0.2 0.0-0.3 10^3/uL Basophils # (Auto) 0.3 H 0.1 0.0-0.1 10^3/uL Neutrophils % (Manual) 40 % Lymphocytes % (Manual) 49 % Monocytes % (Manual) 7 % Eosinophils % (Manual) 4 % Basophils % (Manual) 0 % Band Neutrophils 0 % Blood Morphology Comment NORMAL Prothrombin Time 15.1 H 12.2-14.7 SEC INR Comment 1.2 0.8-1.4 Activated Partial Thromboplast Time 33 24-35 SEC Sodium Level 138 136 135-145 MMOL/L Potassium Level 4.0 4.1 3.6-5.0 MMOL/L Chloride Level 106 103 98-107 MMOL/L Carbon Dioxide Level 21 20 L 21-32 MMOL/L Anion Gap 11 13 5-14 MMOL/L Blood Urea Nitrogen 9 9 7-18 MG/DL Creatinine 1.23 1.09 0.60-1.30 MG/DL Estimat Glomerular Filtration Rate 58 > 60 BUN/Creatinine Ratio 7 8 Glucose Level 187 H 281 H 70-105 MG/DL Calcium Level 9.0 8.9 8.5-10.1 MG/DL Magnesium Level 1.9 1.8-2.4 MG/DL Total Bilirubin 0.3 1.4 H 0.1-1.0 MG/DL Aspartate Amino Transf (AST/SGOT) 18 268 H 5-34 U/L Alanine Aminotransferase (ALT/SGPT) 13 155 H 0-55 U/L Alkaline Phosphatase 94 140 H 40-136 U/L Total Creatine Kinase 86 66 30-200 U/L Creatine Kinase MB 2.4 <6.6 NG/ML Troponin I < 0.30 < 0.30 <0.30 NG/ML B-Type Natriuretic Peptide 48.0 <100.0 PG/ML Total Protein 7.3 7.4 6.4-8.2 GM/DL Albumin 4.1 4.1 3.2-4.5 GM/DL Amylase Level 87 25-125 U/L Lipase 39 8-78 U/L Glucometer 186 H 259 H 70-110 MG/DL Myoglobin 33.7 10.0-92.0 NG/ML Triglycerides Level 106 <150 MG/DL Cholesterol Level 122 < 200 MG/DL LDL Cholesterol Direct 68 1-129 MG/DL VLDL Cholesterol 21 5-40 MG/DL HDL Cholesterol 41 40-60 MG/DL Test 10/25/17 11:01 Range/Units Glucometer 268 H 70-110 MG/DL Radiology CXR 10/24: Stable cardiac enlargement RUQ US 10/25: DRAFT IMPRESSION: Findings suggestive of cholelithiasis and gallbladder sludge, some of which appears to be non-mobile near the gallbladder neck. The gallbladder wall is borderline in thickness at 3 mm as well and the possibility of cholecystitis cannot be excluded. If there is concern for acute cholecystitis, nuclear medicine hepatobiliary scan could be performed. Physical Exam-([facility]) Physical Exam Vital Signs VS - Last 72 Hours, by Label 10/24/17 10/24/17 10/24/17 10/24/17 18:33 20:05 20:23 20:23 Temp 96.9 97.6 97.1 Pulse 68 62 60 Resp 18 12 20 B/P (MAP) 186/74 (111) 181/85 195/80 (118) Pulse Ox 96 93 96 O2 Delivery Room Air Room Air Room Air Nasal Cannula O2 Flow Rate 2.00 10/24/17 10/24/17 10/24/17 10/24/17 20:38 20:52 21:07 21:37 Pulse 60 61 60 60 B/P (MAP) 169/78 (108) 193/74 (113) 193/76 (115) 170/72 (104) Pulse Ox 95 94 92 92 O2 Delivery Room Air Room Air Room Air Room Air 10/24/17 10/24/17 10/24/17 10/25/17 22:07 22:22 23:07 00:07 Temp 97.7 97.3 97.7 Pulse 60 60 60 61 Resp 20 20 17 B/P (MAP) 183/73 (109) 190/78 (115) 180/75 (110) Pulse Ox 95 98 99 O2 Delivery Room Air Nasal Cannula Nasal Cannula O2 Flow Rate 2.00 2.00 10/25/17 10/25/17 10/25/17 10/25/17 01:00 01:07 04:27 07:00 Temp 97.8 97.9 Pulse 66 60 61 72 Resp 18 19 B/P (MAP) 165/79 (107) 164/80 (108) Pulse Ox 97 96 O2 Delivery Nasal Cannula Nasal Cannula O2 Flow Rate 2.00 2.00 10/25/17 10/25/17 10/25/17 10/25/17 08:45 09:00 09:17 12:40 Temp 96.7 96.6 Pulse 72 63 Resp 18 18 B/P (MAP) 158/82 (107) 180/77 (111) Pulse Ox 96 98 O2 Delivery Nasal Cannula Nasal Cannula Nasal Cannula Room Air O2 Flow Rate 2.00 2.00 2.00 Capillary Refill : Less Than 3 Seconds General Appearance: WD/WN Respiratory: lungs clear, normal breath sounds Cardiovascular: regular rate, rhythm, no murmur Gastrointestinal: normal bowel sounds, non tender, soft Extremities: no pedal edema Neurologic/Psychiatric: alert, normal mood/affect Skin: normal color, warm/dry Assessment/Plan Assessment/Plan Admission Status: Observation (1) Cholelithiasis Status: Acute Assessment & Plan: Suspected cause of chest pain/nausea/vomiting. Dr. Ruffin consulted. If surgery not soon, consider antibiotics given new elevated WBC today. Qualifiers: (2) Elevated LFTs Status: Acute Assessment & Plan: Secondary to above, monitor. (3) Leukocytosis Status: Acute (4) Chest pain Status: Acute Assessment & Plan: No troponin elevation or EKG changes. Cardiology consulted given risk factors, appreciate recommendations. (5) Hypertension Status: Chronic Assessment & Plan: Resume home medications Qualifiers: Qualified Codes: I10 - Essential (primary) hypertension (6) Diabetes mellitus, type 2 Status: Chronic Assessment & Plan: Hold home insulin and metformin while NPO. Sliding scale insulin. Qualifiers: (7) Dementia Status: Chronic (8) COPD (chronic obstructive pulmonary disease) Status: Chronic Assessment & Plan: Stable. RT for duonebs, resume home inhaled steroid. (9) Schizophrenia Status: Chronic Assessment & Plan: Resume home behavioral health meds (10) History of pulmonary embolism Status: Chronic Assessment & Plan: On apixaban, holding in light of possible surgery (11) DVT prophylaxis Status: Acute Assessment & Plan: On apixaban chronically, held currently due to possible surgery Clinical Quality Measures AMI/AHF: ASA po Prior to arrival: No DVT/VTE Risk/Contraindication: Risk Factor Score Per Nursin RFS Level Per Nursing on Admit: 2=Moderate FREDA SALINAS MD October 25, 2017 3:45 pm
--- NOTE | 2017-10-25 18:28 | CONSULTATION REPORT ---
DATE OF SERVICE: 10/25/2017 ATTENDING PRIMARY CARE PHYSICIAN: Dr. Mee Kuo. ADMITTING PHYSICIAN: Dr. Wakefield. HISTORY OF PRESENT ILLNESS: The patient is a 67-year-old male, who presented to the Emergency Department from [facility] with chest pain as well as abdominal pain after eating dinner. He states that the pain lasted for 15 to 30 minutes and did resolve on its own. He also did report that during that timeframe, he noticed slight dizziness as well as slight shortness of breath and sweating. He did report some mild nausea; however, no vomiting. He does have a significant history of coronary artery disease and has undergone open coronary artery bypass grafting x2 vessels. He also has a history of deep vein thrombosis as well as pulmonary embolism and stroke. For this, he is on aspirin as well as apixaban 2.5 mg b.i.d. A cardiology workup was negative. He does have a pacemaker placed, which was interrogated and appeared to be in working condition. He also did undergo a cardiac catheterization and all of his bypasses were completely patent. On admission, an ultrasound was performed, which did show multiple gallstones as well as gallbladder sludge and mild gallbladder wall thickening consistent with a chronic calculous cholecystitis. PAST MEDICAL HISTORY: Coronary artery disease, hypertension, hypercholesterolemia, diabetes, dementia, history of DVT and pulmonary embolism, gastroesophageal reflux disease, anxiety, schizophrenia. PAST SURGICAL HISTORY: Coronary artery bypass grafting x2 vessels and pacemaker implantation. ALLERGIES: No known drug allergies. MEDICATIONS: 1. Apixaban 2.5 mg b.i.d. 2. Aspirin 81 mg daily. 3. Atorvastatin 10 mg daily. 4. Budesonide/formoterol 2 puffs b.i.d. 5. Insulin 15 units t.i.d. 6. Detemir insulin 15 units b.i.d. 7. Lisinopril 20 mg daily. 8. Loratadine 10 mg daily. 9. Memantine/donepezil daily. 10. Metformin 500 mg b.i.d. 11. Zofran 8 mg p.r.n. 12. Protonix 40 mg daily. 13. Ranitidine 75 mg daily. SOCIAL HISTORY: Previous smoke, quit 2016, 50 pack years. Negative alcohol. FAMILY HISTORY: Father and brother with diabetes, cardiovascular disease in mother father, brother and sister. REVIEW OF SYSTEMS: Well-nourished male currently in no acute distress. He is not experiencing any shortness of breath or difficulty breathing. No chest pain, palpitations, diaphoresis. No nausea or vomiting; however, did present with nausea as well as epigastric and right upper abdominal quadrant pain with mild nausea and a diaphoretic sensation. Upon further questioning, he reports that this has happened before after eating meals. No diarrhea or constipation. No red blood per rectum. No dark tarry stools. No fever or chills. No recent inadvertent weight loss. All other review of systems are negative. PHYSICAL EXAMINATION: VITAL SIGNS: Temperature 96.6, blood pressure 180/77, pulse 63, respirations 18, pulse ox 98% on room air. CHEST: Few scattered rales and rhonchi bilaterally, good breath sounds. HEART: Regular, no murmurs. EXTREMITIES: No lower extremity edema. Negative Homans sign. HEENT: No scleral icterus. NECK: No cervical lymphadenopathy. ABDOMEN: Soft, nondistended. There is pain in the right upper abdominal quadrant as well as epigastric region upon deep palpation with no rebounding or guarding. LABORATORY DATA: WBC 15.0, hemoglobin 12.5, hematocrit 39, platelets 279, BUN 9, creatinine 1.09, total bilirubin 1.4, AST 268, ALT 155, alkaline phosphatase 140, amylase 87 and lipase 39. ASSESSMENT AND PLAN: A 67-year-old male with chronic calculous cholecystitis. We have discussed the case with Cardiology and he is in intermediate risk. However, the risks outweigh the benefits and his apixaban will be held and he will be placed on Lovenox. The recommendation was to hold the Xa inhibitor for approximately 48 hours, then proceed with surgery, which would be Monday morning, which we will schedule a laparoscopic cholecystectomy at that time. Job ID: [id number] DocumentID: [id number] Dictated Date: 10/25/2017 14:58:46 Bibliographic Services Specialist Date: 10/25/2017 18:27:33 Dictated By: MD GLORIA TIWARI
[2017-10-25] MEDS: PANTOPRAZOLE 40 MG (PROTONIX) TAB PO SCH (20:54)
[2017-10-25] MEDS: ATORVASTATIN 10 MG (LIPITOR) TABLET PO SCH (20:55)
[2017-10-25] MEDS: FAMOTIDINE 20 MG (PEPCID) TABLET PO SCH (20:55)
[2017-10-26] MEDS: NITROGLYCERIN 2% OINT 1 GM UNIT DOSE PACKET TOP SCH ×4 (02:40→21:15)
[2017-10-26 03:24] VITALS: BP 127/68
[2017-10-26] MEDS: inSUlin ASPART (NovoLOG) 1 UNIT/0.01 ML (CHARGE PER UNIT) SC SCH ×4 (06:30→21:15)
[2017-10-26 08:00] VITALS: BP 140/64
--- NOTE | 2017-10-26 08:14 | Cardiology Progress Note ---
Subjective Date Seen by Provider: October 26, 2017 Time Seen by Provider: 08:11 Subjective/Events-last exam Patient is in bed, feeling better, no new complaint Review of Systems General: No Chills, No Night Sweats, No Fatigue, No Malaise, No Appetite, No Other HEENT: No Head Aches, No Visual Changes, No Eye Pain, No Ear Pain, No Dysphasia , No Sinus Congestion, No Post Nasal Drip, No Sore Throat, No Other Pulmonary: No Dyspnea, No Cough, No Pleuritic Chest Pain, No Other Cardiovascular: No: Chest Pain, Palpitations, Orthopnea, Paroxysmal Noc. Dyspnea, Edema, Lt Headedness, Other Objective-Cardiology Exam Last Set of Vital Signs Vital Signs 10/25/17 10/26/17 21:00 03:24 Temp 97.2 Pulse 80 Resp 19 B/P (MAP) 127/68 (87) Pulse Ox 91 O2 Delivery Room Air O2 Flow Rate 2.00 Capillary Refill : Less Than 3 Seconds I&O Intake and Output 10/26/17 00:00 Intake Total 700 ml Output Total 900 ml Balance -200 ml Intake Oral 700 ml Output Urine Total 900 ml # Voids 4 # Emeses 1 General: Alert, Oriented X3, Cooperative HEENT: Atraumatic, PERRLA Neck: Supple, No JVD, No Thyromegaly Lungs: Clear to Auscultation, Normal Air Movement Heart: Regular Rate, Normal S1, Normal S2, No Murmurs Abdomen: Normal Bowel Sounds, Soft, No Tenderness, No Hepatosplenomegaly, No Masses Extremities: No Clubbing, No Cyanosis, No Edema, Normal Pulses, No Tenderness/ Swelling Skin: No Rashes, No Breakdown, No Significant Lesion Neuro: Normal Gait, Normal Speech, Strength at 5/5 X4 Ext, Normal Tone, Sensation Intact Psych/Mental Status: Mental Status NL, Mood NL A/P-Cardiology Admission Diagnosis CP CAD HTN HLP Assessment/Plan Chest pain, nonspecific etiology. EKG reveals no acute ST changes, cardiac enzymes negative. Underwent cardiac cath on 10/04/17 revealing patent bypass to RCA, patent VIEIRA to LAD. Chest pain probably secondary to cholelithiasis. Dr. Ruffin consulted for further management CAD- underwent cardiac cath 10/04/17 revealing patent VIEIRA to LAD, patent VG to RCA SSS s/p PPM- [employer] pacemaker placed by Dr. Muro in 2007. Good sensing and capture activity, battery life is around 9 months Elevated LFT's- likely secondary to cholelithiasis Cholelithiasis- Dr. Ruffin consulted for further management. Dyspnea, history of DVT, maintained on Eliquis. Will hold Eliquis in anticipation of surgery with Dr. Ruffin. Hypertension, continue current medication monitor blood pressure COPD, maintained on Symbicort Diabetes mellitus, followed and managed by primary care physician History of schizophrenia. Dementia. Pre operative cardiovascular evaluation. He is considered at intermediate risk for perioperative cardiovascular complications, decision regarding the surgery, risks versus benefit is deferred to the surgeon. Hold Eliquis for 48 prior to surgery and restart anticoagulation when deemed reasonable by the surgeon Clinical Quality Measures AMI/AHF: ASA po Prior to arrival: No DVT/VTE Risk/Contraindication: Risk Factor Score Per Nursin RFS Level Per Nursing on Admit: 2=Moderate TL RAMSEY MD October 26, 2017 08:14
[2017-10-26] MEDS: ASPIRIN E.C. 325 MG (ECOTRIN) TABLET PO SCH (08:35)
[2017-10-26] MEDS: lisINopril 20 MG (PRINIVIL) TABLET PO SCH (08:35)
[2017-10-26] MEDS ORDERED: [UNRECOGNIZED DRUG - OTHER] PO SCH (09:00)
[2017-10-26] MEDS ORDERED: DONEPEZIL HCL PO SCH (09:00)
[2017-10-26] MEDS ORDERED: MEMANTINE HCL PO SCH (09:00)
[2017-10-26 09:52] LABS: HEMOGLOBIN 12.7 G/DL (13.3-17.7); MEAN PLATELET VOLUME 10.6 FL (7.4-10.4); RED BLOOD COUNT 5.25 10^6/uL (4.35-5.85); RED CELL DISTRIBUTION WIDTH 17.4 % (10.0-14.5); WHITE BLOOD COUNT 9.2 10^3/uL (4.3-11.0)
[2017-10-26 10:09] LABS: ALBUMIN 3.9 GM/DL (3.2-4.5); CALCIUM 8.9 MG/DL (8.5-10.1); CREATININE SERUM 1.45 MG/DL (0.60-1.30); POTASSIUM 4.4 MMOL/L (3.6-5.0); TOTAL PROTEIN 7.2 GM/DL (6.4-8.2)
[2017-10-26] MEDS: MEMANTINE 5 MG (NAMENDA) TABLET PO SCH ×2 (10:16→21:15)
[2017-10-26] MEDS: NS IV 1000 ML 1,000 ML IV SCH ×2 (11:20→21:16)
[2017-10-26 12:00] VITALS: BP 158/70
[2017-10-26] MEDS ORDERED: LACTATED RINGERS 1,000 ML IV PRN (14:32)
--- NOTE | 2017-10-26 15:43 | Progress Note-Pre Operative ---
Pre-Operative Progress Note H&P Reviewed The H&P was reviewed, patient examined and no changes noted. Date Seen by Provider: October 26, 2017 Time Seen by Provider: 15:40 Date H&P Reviewed: October 26, 2017 Time H&P Reviewed: 15:40 Pre-Operative Diagnosis: symptomatic chronic calculous cholecystitis HONG BANSAL MD October 26, 2017 3:43 pm
--- NOTE | 2017-10-26 15:49 | Progress Note (SOAP) ---
Subjective Date Seen by Provider: October 26, 2017 Time Seen by Provider: 15:40 Subjective/Events-last exam doing better. no abdominal pain. tolerating low fat diet. no nausea/vomiting Objective Exam Vital Signs Date Time Temp Pulse Resp B/P (MAP) Pulse Ox O2 Delivery O2 Flow Rate FiO2 10/26/17 12:00 97.1 67 18 158/70 (99) 94 Room Air 10/26/17 09:01 Room Air 10/26/17 08:00 97.6 70 18 140/64 (89) 93 Room Air 10/26/17 07:00 82 10/26/17 03:24 97.2 80 19 127/68 (87) 91 Room Air 10/26/17 01:00 69 10/25/17 23:59 97.5 89 17 138/65 (89) 93 Room Air 10/25/17 21:00 Nasal Cannula 2.00 10/25/17 19:45 97.9 92 20 136/69 (91) 94 Room Air 10/25/17 16:50 97.8 74 20 157/76 (103) 96 Room Air I & O 10/26/17 07:00 Intake Total 850 ml Output Total 500 ml Balance 350 ml Capillary Refill : Less Than 3 Seconds General Appearance: No Apparent Distress HEENT: PERRL/EOMI Neck: Full Range of Motion Respiratory: Chest Non Tender, Normal Breath Sounds Cardiovascular: Regular Rate, Rhythm Gastrointestinal: normal bowel sounds, soft Extremity: Normal Capillary Refill Neurologic/Psychiatric: Alert, Oriented x3 Skin: Normal Color Lymphatic: No Adenopathy Results Lab Laboratory Tests 10/25/17 17:39: Glucometer 317H 10/25/17 20:25: Glucometer 272H 10/26/17 05:22: Glucometer 201H 10/26/17 06:12: Glucometer 205H 10/26/17 09:45: White Blood Count 9.2, Red Blood Count 5.25, Hemoglobin 12.7L, Hematocrit 40, Mean Corpuscular Volume 76L, Mean Corpuscular Hemoglobin 24L, Mean Corpuscular Hemoglobin Concent 32, Red Cell Distribution Width 17.4H, Platelet Count 303, Mean Platelet Volume 10.6H, Sodium Level 138, Potassium Level 4.4, Chloride Level 106, Carbon Dioxide Level 23, Anion Gap 9, Blood Urea Nitrogen 13, Creatinine 1.45H, Estimat Glomerular Filtration Rate 48, BUN/Creatinine Ratio 9 , Glucose Level 320H, Calcium Level 8.9, Total Bilirubin 2.0H, Aspartate Amino Transf (AST/SGOT) 411H, Alanine Aminotransferase (ALT/SGPT) 431H, Alkaline Phosphatase 226H, Total Protein 7.2, Albumin 3.9 10/26/17 10:49: Glucometer 303H Microbiology 10/25/17 MRSA Screen - Final, Complete MRSA not isolated Assessment/Plan Assessment/Plan Assess & Plan/Chief Complaint symptomatic chronic calculous cholecystitis. eliquis stopped and on bridge lovenox. will plan for lap marissa in am. Clinical Quality Measures AMI/AHF: ASA po Prior to arrival: No DVT/VTE Risk/Contraindication: Risk Factor Score Per Nursin RFS Level Per Nursing on Admit: 2=Moderate HONG BANSAL MD October 26, 2017 3:49 pm
[2017-10-26 16:32] VITALS: BP 141/65
--- NOTE | 2017-10-26 20:27 | Progress Note (SOAP) ---
Subjective Subjective/Events-last exam Afebrile, reports feeling okay, denies abdominal pain. Review of Systems Date Seen by Provider: October 26, 2017 Time Seen by Provider: 10:10 Objective Exam Last Set of Vital Signs Vital Signs Date Time Temp Pulse Resp B/P (MAP) Pulse Ox O2 Delivery O2 Flow Rate FiO2 10/26/17 16:32 97.1 60 17 141/65 (90) 94 Room Air 10/25/17 21:00 2.00 Capillary Refill : Less Than 3 Seconds I&O Intake and Output 10/26/17 00:00 Intake Total 700 ml Output Total 900 ml Balance -200 ml Intake Oral 700 ml Output Urine Total 900 ml # Voids 4 # Emeses 1 General: Alert, No Acute Distress Lungs: Clear to Auscultation, Normal Air Movement Heart: Regular Rate, No Murmurs Psych/Mental Status: Mental Status NL Results/Procedures Lab Laboratory Tests 10/25/17 20:25: Glucometer 272H 10/26/17 05:22: Glucometer 201H 10/26/17 06:12: Glucometer 205H 10/26/17 09:45: White Blood Count 9.2, Red Blood Count 5.25, Hemoglobin 12.7L, Hematocrit 40, Mean Corpuscular Volume 76L, Mean Corpuscular Hemoglobin 24L, Mean Corpuscular Hemoglobin Concent 32, Red Cell Distribution Width 17.4H, Platelet Count 303, Mean Platelet Volume 10.6H, Sodium Level 138, Potassium Level 4.4, Chloride Level 106, Carbon Dioxide Level 23, Anion Gap 9, Blood Urea Nitrogen 13, Creatinine 1.45H, Estimat Glomerular Filtration Rate 48, BUN/Creatinine Ratio 9 , Glucose Level 320H, Calcium Level 8.9, Total Bilirubin 2.0H, Aspartate Amino Transf (AST/SGOT) 411H, Alanine Aminotransferase (ALT/SGPT) 431H, Alkaline Phosphatase 226H, Total Protein 7.2, Albumin 3.9 10/26/17 10:49: Glucometer 303H 10/26/17 16:13: Glucometer 154H Microbiology 10/25/17 MRSA Screen - Final, Complete MRSA not isolated Radiology CXR 10/24: Stable cardiac enlargement RUQ US 10/25: DRAFT IMPRESSION: Findings suggestive of cholelithiasis and gallbladder sludge, some of which appears to be non-mobile near the gallbladder neck. The gallbladder wall is borderline in thickness at 3 mm as well and the possibility of cholecystitis cannot be excluded. If there is concern for acute cholecystitis, nuclear medicine hepatobiliary scan could be performed. Assessment/Plan Assessment/Plan (1) Cholelithiasis Status: Acute Assessment & Plan: Suspected cause of chest pain/nausea/vomiting. Dr. Ruffin consulted. If surgery not soon, consider antibiotics given new elevated WBC today. 10/26- continued increase in LFTs, but decreased WBC, surgery planned for tomorrow am Qualifiers: (2) Elevated LFTs Status: Acute Assessment & Plan: Secondary to above, monitor. (3) Leukocytosis Status: Acute Assessment & Plan: Improved (4) Chest pain Status: Acute Assessment & Plan: No troponin elevation or EKG changes. Cardiology consulted given risk factors, appreciate recommendations. (5) Hypertension Status: Chronic Assessment & Plan: Resume home medications Qualifiers: Qualified Codes: I10 - Essential (primary) hypertension (6) Diabetes mellitus, type 2 Status: Chronic Assessment & Plan: Hold home insulin and metformin while NPO. Sliding scale insulin. Qualifiers: (7) Dementia Status: Chronic (8) COPD (chronic obstructive pulmonary disease) Status: Chronic Assessment & Plan: Stable. RT for duonebs, resume home inhaled steroid. (9) Schizophrenia Status: Chronic Assessment & Plan: Resume home behavioral health meds (10) History of pulmonary embolism Status: Chronic Assessment & Plan: On apixaban, holding in light of possible surgery (11) DVT prophylaxis Status: Acute Assessment & Plan: On apixaban chronically, held currently due to possible surgery Clinical Quality Measures AMI/AHF: ASA po Prior to arrival: No DVT/VTE Risk/Contraindication: Risk Factor Score Per Nursin RFS Level Per Nursing on Admit: 2=Moderate FREDA SALINAS MD October 26, 2017 8:27 pm
[2017-10-26 20:49] VITALS: BP 129/58
[2017-10-26] MEDS: ATORVASTATIN 10 MG (LIPITOR) TABLET PO SCH (21:15)
[2017-10-26] MEDS: PANTOPRAZOLE 40 MG (PROTONIX) TAB PO SCH (21:15)
[2017-10-26] MEDS: FAMOTIDINE 20 MG (PEPCID) TABLET PO SCH (21:16)
[2017-10-26] MEDS: DONEPEZIL 10 MG (ARICEPT) TAB PO SCH (21:16)
[2017-10-27 00:42] VITALS: BP 136/66
[2017-10-27] MEDS: NITROGLYCERIN 2% OINT 1 GM UNIT DOSE PACKET TOP SCH ×2 (02:53→08:15)
[2017-10-27 04:51] VITALS: BP 150/80
[2017-10-27 05:34] LABS: HEMOGLOBIN 12.1 G/DL (13.3-17.7); MEAN PLATELET VOLUME 11.1 FL (7.4-10.4); RED BLOOD COUNT 5.04 10^6/uL (4.35-5.85); RED CELL DISTRIBUTION WIDTH 17.5 % (10.0-14.5); WHITE BLOOD COUNT 8.4 10^3/uL (4.3-11.0)
[2017-10-27 05:46] LABS: ALANINE AMINOTRANSFERASE 363 U/L (0-55); ALBUMIN 3.8 GM/DL (3.2-4.5); ALKALINE PHOSPHATASE 199 U/L (40-136); BILIRUBIN,TOTAL 0.9 MG/DL (0.1-1.0); BUN/CREATININE RATIO 13; CALCIUM 8.9 MG/DL (8.5-10.1); CARBON DIOXIDE 21 MMOL/L (21-32); CHLORIDE 109 MMOL/L (98-107); CREATININE SERUM 1.11 MG/DL (0.60-1.30); GFR ESTIMATED > 60; GLUCOSE 177 MG/DL (70-105); POTASSIUM 3.9 MMOL/L (3.6-5.0); SODIUM 141 MMOL/L (135-145)
[2017-10-27] MEDS: inSUlin ASPART (NovoLOG) 1 UNIT/0.01 ML (CHARGE PER UNIT) SC SCH ×4 (06:17→21:00)
[2017-10-27] MEDS: NS IV 1000 ML 1,000 ML IV SCH ×3 (07:21→23:19)
[2017-10-27 08:00] VITALS: BP 169/65
[2017-10-27] MEDS: ASPIRIN E.C. 325 MG (ECOTRIN) TABLET PO SCH (08:15)
[2017-10-27] MEDS: MEMANTINE 5 MG (NAMENDA) TABLET PO SCH ×2 (08:16→23:20)
[2017-10-27] MEDS: lisINopril 20 MG (PRINIVIL) TABLET PO SCH (08:16)
[2017-10-27] MEDS ORDERED: BUP/EPI 0.5% 1:200,000 (SENSORCAINE) 30 ML VIAL ONE (08:51)
--- NOTE | 2017-10-27 08:53 | Cardiology Progress Note ---
Subjective Date Seen by Provider: October 27, 2017 Time Seen by Provider: 08:50 Subjective/Events-last exam Patient is in bed, feeling better, sustained a fall in the bathroom earlier this morning, denied any chest pain, scheduled for surgery today Review of Systems General: No Chills, No Night Sweats, No Fatigue, No Malaise, No Appetite, No Other HEENT: No Head Aches, No Visual Changes, No Eye Pain, No Ear Pain, No Dysphasia , No Sinus Congestion, No Post Nasal Drip, No Sore Throat, No Other Pulmonary: No Dyspnea, No Cough, No Pleuritic Chest Pain, No Other Cardiovascular: No: Chest Pain, Palpitations, Orthopnea, Paroxysmal Noc. Dyspnea, Edema, Lt Headedness, Other Objective-Cardiology Exam Last Set of Vital Signs Vital Signs 10/25/17 10/27/17 21:00 04:51 Temp 97.9 Pulse 63 Resp 16 B/P (MAP) 150/80 (103) Pulse Ox 96 O2 Delivery Room Air O2 Flow Rate 2.00 Capillary Refill : Less Than 3 Seconds I&O Intake and Output 10/27/17 00:00 Intake Total 1382 ml Balance 1382 ml Intake Oral 1382 ml # Voids 6 General: Alert, Oriented X3, No Acute Distress HEENT: Atraumatic, PERRLA Neck: Supple, No JVD, No Thyromegaly Lungs: Clear to Auscultation, Normal Air Movement Heart: Regular Rate, Normal S1, Normal S2, No Murmurs Abdomen: Normal Bowel Sounds, Soft, No Tenderness, No Hepatosplenomegaly, No Masses Extremities: No Clubbing, No Cyanosis, No Edema, Normal Pulses, No Tenderness/ Swelling Skin: No Rashes, No Breakdown, No Significant Lesion Neuro: Normal Gait, Normal Speech, Strength at 5/5 X4 Ext, Normal Tone, Sensation Intact Psych/Mental Status: Mental Status NL Results Lab Laboratory Tests 10/26/17 09:45 10/27/17 04:46 A/P-Cardiology Admission Diagnosis CP CAD HTN HLP Assessment/Plan Chest pain, nonspecific etiology. EKG reveals no acute ST changes, cardiac enzymes negative. Underwent cardiac cath on 10/04/17 revealing patent bypass to RCA, patent VIEIRA to LAD. Chest pain probably secondary to cholelithiasis. Scheduled for cholecystectomy today CAD- underwent cardiac cath 10/04/17 revealing patent VIEIRA to LAD, patent VG to RCA, continue to monitor SSS s/p PPM- [employer] pacemaker placed by Dr. Muro in 2007. Good sensing and capture activity, battery life is around 9 months Elevated LFT's- likely secondary to cholelithiasis Cholelithiasis- Dr. Ruffin consulted for further management. Dyspnea, history of DVT, maintained on Eliquis. Will hold Eliquis in anticipation of surgery with Dr. Ruffin. Hypertension, continue current medication monitor blood pressure COPD, maintained on Symbicort Diabetes mellitus, followed and managed by primary care physician History of schizophrenia. Dementia. Preoperative cardiovascular evaluation. He is considered at intermediate risk for perioperative cardiovascular complications, decision regarding the surgery, risks versus benefit is deferred to the surgeon. Hold Eliquis for 48 prior to surgery and restart anticoagulation when deemed reasonable by the surgeon Clinical Quality Measures AMI/AHF: ASA po Prior to arrival: No DVT/VTE Risk/Contraindication: Risk Factor Score Per Nursin RFS Level Per Nursing on Admit: 2=Moderate TL RAMSEY MD October 27, 2017 8:53 am
[2017-10-27] MEDS ORDERED: proPOfol 200 MG/20 ML (DIPRIVAN) VIAL IV ONE (08:54)
[2017-10-27] MEDS ORDERED: ONDANSETRON 4 MG/2 ML (SDV) Z0FRAN ONE (08:54)
[2017-10-27] MEDS ORDERED: LIDOCAINE PF 2% 5 ML (XYLOCAINE) VIAL ONE (08:54)
[2017-10-27] MEDS ORDERED: SEVOFLURANE (ULTANE) 15 ML INHAL SOLN ONE ×4 (08:54→10:29)
[2017-10-27] MEDS ORDERED: ROCURONIUM 10 MG/ML 5 ML SYRINGE IV ONE (08:54)
[2017-10-27] MEDS ORDERED: MIDAZOLAM 2 MG/2 ML (VERSED) VIAL ONE (08:55)
[2017-10-27] MEDS ORDERED: fentaNYL INJECTION 100 MCG/2 ML AMP ONE (08:55)
[2017-10-27] MEDS ORDERED: ceFAZolin 1,000 MG (ANCEF) VIAL ONE (09:16)
[2017-10-27] MEDS ORDERED: LACTATED RINGERS 1,000 ML IV PRN (09:44)
[2017-10-27] MEDS ORDERED: NEOSTIGMINE 1 MG/ML 5 ML SYRINGE ONE ×2 (10:30→11:19)
[2017-10-27] MEDS ORDERED: GLYCOPYRROLATE 0.2 MG/ML (ROBINUL) 2 ML VIAL ONE (10:30)
--- NOTE | 2017-10-27 10:50 | Progress Note-Post Operative ---
Post-Operative Progess Note Surgeon (s)/Heel Varnisher (s) Surgeon HONG BANSAL MD Heel Varnisher: jillian howard BUREAU DIRECTOR Pre-Operative Diagnosis symptomatic chronic calculous cholecystitis Post-Operative Diagnosis same Procedure & Operative Findings Date of Procedure 10/27/17 Procedure Performed/Findings laparoscopic cholecystectomy Anesthesia Type GET Estimated Blood Loss Estimated blood loss (mL): minimal Specimens/Packing Specimens Removed gallbladder HONG BANSAL MD October 27, 2017 10:50 am
[2017-10-27] MEDS ORDERED: HYDR-34 PO (10:52)
--- NOTE | 2017-10-27 10:53 | Discharge Inst-Surgical ---
D/C Lap Instructions-ROLF New, Converted, or Re-Newed RX: RX on Chart Follow Up Appt in 2 weeks Activity as tolerated No driving for 24 hours No driving while on pain medications Incentive Spirometry use every 2 hours while awake Regular Diet Symptoms to Report: Fever over 101 degree F, Nausea/Vomiting Infection Signs and Symptoms to report: Increased redness, Foul odor of wound, Increased drainage Bathing instructions: May shower Operative Area Clean/Dry; Keep incision clean/dry If any problems/questions: Contact your physician or go to Emergency Room HONG BANSAL MD October 27, 2017 10:53 am
[2017-10-27] MEDS ORDERED: RT-ALBUTEROL SULF 2.5 MG/3 ML PRE-MIX VIAL ONE (11:03)
--- NOTE | 2017-10-27 11:07 | Progress Note (SOAP) ---
Subjective Subjective/Events-last exam Afebrile. This morning fell to rear end in shower, denies any injury or pain. No abdominal pain. He states he is ready for surgery. Review of Systems Date Seen by Provider: October 27, 2017 Time Seen by Provider: 08:35 Objective Exam Last Set of Vital Signs Vital Signs Date Time Temp Pulse Resp B/P (MAP) Pulse Ox O2 Delivery O2 Flow Rate FiO2 10/27/17 09:00 Room Air 10/27/17 08:00 96.4 61 20 169/65 (99) 99 10/25/17 21:00 2.00 Capillary Refill : Less Than 3 Seconds I&O Intake and Output 10/27/17 00:00 Intake Total 1382 ml Balance 1382 ml Intake Oral 1382 ml # Voids 6 General: Alert, No Acute Distress Lungs: Clear to Auscultation, Normal Air Movement Heart: Regular Rate, No Murmurs Neuro: Normal Speech Results/Procedures Lab Laboratory Tests 10/26/17 16:13: Glucometer 154H 10/26/17 20:10: Glucometer 278H 10/27/17 04:46: White Blood Count 8.4, Red Blood Count 5.04, Hemoglobin 12.1L, Hematocrit 39L, Mean Corpuscular Volume 76L, Mean Corpuscular Hemoglobin 24L, Mean Corpuscular Hemoglobin Concent 31L, Red Cell Distribution Width 17.5H, Platelet Count 282, Mean Platelet Volume 11.1H, Sodium Level 141, Potassium Level 3.9, Chloride Level 109H, Carbon Dioxide Level 21, Anion Gap 11, Blood Urea Nitrogen 14, Creatinine 1.11, Estimat Glomerular Filtration Rate > 60, BUN/Creatinine Ratio 13, Glucose Level 177H, Calcium Level 8.9, Total Bilirubin 0.9, Aspartate Amino Transf (AST/SGOT) 270H, Alanine Aminotransferase (ALT/SGPT) 363H, Alkaline Phosphatase 199H, Total Protein 7.0, Albumin 3.8 10/27/17 05:51: Glucometer 153H Microbiology 10/25/17 MRSA Screen - Final, Complete MRSA not isolated Radiology CXR 10/24: Stable cardiac enlargement RUQ US 10/25: DRAFT IMPRESSION: Findings suggestive of cholelithiasis and gallbladder sludge, some of which appears to be non-mobile near the gallbladder neck. The gallbladder wall is borderline in thickness at 3 mm as well and the possibility of cholecystitis cannot be excluded. If there is concern for acute cholecystitis, nuclear medicine hepatobiliary scan could be performed. Assessment/Plan Assessment/Plan (1) Cholelithiasis Status: Acute Assessment & Plan: Suspected cause of chest pain/nausea/vomiting. Dr. Ruffin consulted. If surgery not soon, consider antibiotics given new elevated WBC today. 10/26- continued increase in LFTs, but decreased WBC, surgery planned for tomorrow am 10/27- labs now trending down, surgery this am. Qualifiers: (2) Elevated LFTs Status: Acute Assessment & Plan: Secondary to above, monitor. (3) Leukocytosis Status: Resolved Assessment & Plan: Improved (4) Chest pain Status: Acute Assessment & Plan: No troponin elevation or EKG changes. Cardiology consulted given risk factors, appreciate recommendations. (5) Hypertension Status: Chronic Assessment & Plan: Resume home medications Qualifiers: Qualified Codes: I10 - Essential (primary) hypertension (6) Diabetes mellitus, type 2 Status: Chronic Assessment & Plan: Hold home insulin and metformin while NPO. Sliding scale insulin. Qualifiers: (7) Dementia Status: Chronic (8) COPD (chronic obstructive pulmonary disease) Status: Chronic Assessment & Plan: Stable. RT for duonebs, resume home inhaled steroid. (9) Schizophrenia Status: Chronic Assessment & Plan: Resume home behavioral health meds (10) History of pulmonary embolism Status: Chronic Assessment & Plan: On apixaban, holding in light of possible surgery, resume as soon after surgery as okay with Dr. Ruffin (11) DVT prophylaxis Status: Acute Assessment & Plan: On apixaban chronically, held currently due to pending surgery Clinical Quality Measures AMI/AHF: ASA po Prior to arrival: No DVT/VTE Risk/Contraindication: Risk Factor Score Per Nursin RFS Level Per Nursing on Admit: 2=Moderate FREDA SALINAS MD October 27, 2017 11:07 am
[2017-10-27] MEDS ORDERED: morphine INJ 10 MG/ML 1ML (SYR OR VIAL) IVP PRN (11:15)
[2017-10-27] MEDS ORDERED: RT-ALBUTEROL SULF 2.5 MG/3 ML PRE-MIX VIAL INH ONE (11:15)
[2017-10-27] MEDS ORDERED: ONDANSETRON 4 MG/2 ML (SDV) Z0FRAN IVP PRN (11:15)
[2017-10-27 12:00] VITALS: BP 179/78
--- NOTE | 2017-10-27 14:19 | Anesthesia-General Post-Op ---
General Patient Condition Mental Status/LOC: Same as Preop Cardiovascular: Satisfactory Nausea/Vomiting: Absent Respiratory: Satisfactory Pain: Controlled Complications: Absent Post Op Complications Complications None Follow Up Care/Instructions Patient Instructions None needed. Anesthesia/Patient Condition Patient Condition Patient is doing well, no complaints, stable vital signs, no apparent adverse anesthesia problems. No complications reported per nursing. D/C home per [facility] Criteria: No CECILIO JEAN BAPTISTE CRNA October 27, 2017 14:19
[2017-10-27 15:55] VITALS: BP 154/74
--- NOTE | 2017-10-27 16:09 | OPERATIVE REPORT ---
DATE OF SERVICE: 10/27/2017 ATTENDING PHYSICIAN: Dr. Jazmine Wakefield. PREOPERATIVE DIAGNOSIS: Chronic calculous cholecystitis. POSTOPERATIVE DIAGNOSIS: Chronic calculous cholecystitis. PROCEDURE: Laparoscopic cholecystectomy. SURGEON: Dr. Hong Bansal. ANESTHESIA: General endotracheal. ESTIMATED BLOOD LOSS: Minimal. FINDINGS: Dense adhesions from a previous midline incision. Gallbladder wall dilatation with gallbladder wall thickening and sludge. DISPOSITION: The patient tolerated the procedure well. INDICATIONS: The patient is a 67-year-old male who presented to the Emergency Department from [facility] with chest pain as well as abdominal pain after eating dinner. He states the pain lasted for approximately 30 minutes and did resolve on its own. He reports that during that timeframe he also noticed dizziness and slight shortness of breath as well as diaphoresis. He did also have some nausea; however, no vomiting. He does have a significant history of coronary artery disease and has undergone open coronary artery bypass grafting x2 vessels. He also has history of venous thromboembolism with a lower extremity clot as well as a pulmonary embolism and stroke. He is currently on aspirin as well as Apixaban. On admission, an ultrasound was performed which did show gallstones as well as sludge and gallbladder wall thickening consistent with a chronic calculous cholecystitis. DESCRIPTION OF PROCEDURE: The patient was brought to the operating room, laid supine on the table. After adequate IV pain and sedating medications and general endotracheal intubation, the abdomen was prepped and draped in standard surgical fashion. 0.5% Marcaine with epinephrine was then used to anesthetize the overlying skin in the left upper abdominal quadrant. A small transverse skin incision made using a 15-blade. An 0 silk suture was applied to the medial aspect of the incision for retraction and a Veress needle inserted with a low opening pressure of 0 mmHg and the abdomen was then insufflated to 15 mmHg pressure. The Veress needle removed and a 5 mm Xcel trocar placed followed by a 5 mm 45-degree angle laparoscope visualizing the peritoneal cavity. A 4-quadrant abdominal exploration was performed. There was a dense greater omental adhesion towards the anterior abdominal wall from a previous midline laparotomy incision. Under direct visualization, we then proceeded to place a supraumbilical 10 mm port away from the adhesions after the skin and peritoneal lining were anesthetized using 0.5% Marcaine with epinephrine. The anterior abdominal wall adhesions were then taken down bluntly using a grasper to allow us visualization of the gallbladder and liver. A right upper abdominal quadrant 5 mm port was then placed. The patient was then placed in reverse Trendelenburg position as well as plane right side up, left side down. The gallbladder fundus was then retracted anteriorly and superiorly. The hepatoduodenal ligament was then opened using electrocautery as well as blunt dissection. The entire critical view of safety was then identified including the triangle of Calot as well as the cystic duct and artery as the only two structures going into the gallbladder as well as the cystic plate behind the proximal gallbladder. A timeout was then taken and the cystic duct and artery were then clipped proximally, distally and cut with EndoShears. The gallbladder was then dissected off of the liver bed using electrocautery and a hook instrument with visualization of good hemostasis as well as no leaking ducts of Luschka. The gallbladder was removed through the 10 mm port site using an EndoCatch bag. The abdomen was desufflated and remaining ports removed. All skin incisions were closed using 4-0 Monocryl running subcuticular sutures. Wounds were then cleaned and covered with Dermabond. The patient tolerated the procedure well. We will admit him back to the floor and start IV and oral pain medication as well as a clear liquid diet and DVT prophylaxis with subcutaneous heparin, early ambulation as well as calf SCDs. Once he is meeting criteria, he can be transferred back to [facility]. He may restart his Eliquis tomorrow. Job ID: [id number] DocumentID: [id number] Dictated Date: 10/27/2017 11:01:20 Manager Sharepoint Date: 10/27/2017 16:08:54 Dictated By: HONG BANSAL MD
[2017-10-27] MEDS: HYDROcodone/APAP 7.5 MG/325 MG (LORTAB, LORCET PLUS) TABLET PO PRN (16:27)
[2017-10-27 19:30] VITALS: BP 163/68
[2017-10-27] MEDS: RT-ADVAIR HFA 115/21 MCG PER PUFF IH SCH (20:47)
[2017-10-27] MEDS: DONEPEZIL 10 MG (ARICEPT) TAB PO SCH (23:20)
[2017-10-27] MEDS: ATORVASTATIN 10 MG (LIPITOR) TABLET PO SCH (23:21)
[2017-10-27] MEDS: FAMOTIDINE 20 MG (PEPCID) TABLET PO SCH (23:21)
[2017-10-27] MEDS: PANTOPRAZOLE 40 MG (PROTONIX) TAB PO SCH (23:22)
[2017-10-28 00:57] VITALS: BP 178/70
[2017-10-28 04:09] VITALS: BP 171/70
[2017-10-28 05:47] LABS: MEAN PLATELET VOLUME 10.9 FL (7.4-10.4); RED BLOOD COUNT 4.44 10^6/uL (4.35-5.85); RED CELL DISTRIBUTION WIDTH 17.2 % (10.0-14.5); WHITE BLOOD COUNT 12.6 10^3/uL (4.3-11.0)
[2017-10-28] MEDS: inSUlin ASPART (NovoLOG) 1 UNIT/0.01 ML (CHARGE PER UNIT) SC SCH ×2 (06:15→11:45)
[2017-10-28 06:49] LABS: ALANINE AMINOTRANSFERASE 336 U/L (0-55); ALBUMIN 3.5 GM/DL (3.2-4.5); ALKALINE PHOSPHATASE 178 U/L (40-136); BILIRUBIN,TOTAL 1.1 MG/DL (0.1-1.0); BUN/CREATININE RATIO 9; CALCIUM 8.4 MG/DL (8.5-10.1); CARBON DIOXIDE 21 MMOL/L (21-32); CHLORIDE 108 MMOL/L (98-107); CREATININE SERUM 0.96 MG/DL (0.60-1.30); GFR ESTIMATED > 60; GLUCOSE 178 MG/DL (70-105); POTASSIUM 4.2 MMOL/L (3.6-5.0); SODIUM 139 MMOL/L (135-145); TOTAL PROTEIN 6.2 GM/DL (6.4-8.2)
[2017-10-28] MEDS: lisINopril 20 MG (PRINIVIL) TABLET PO SCH (08:09)
[2017-10-28] MEDS: MEMANTINE 5 MG (NAMENDA) TABLET PO SCH (08:09)
[2017-10-28] MEDS: HYDROcodone/APAP 7.5 MG/325 MG (LORTAB, LORCET PLUS) TABLET PO PRN (08:09)
[2017-10-28] MEDS: ASPIRIN E.C. 325 MG (ECOTRIN) TABLET PO SCH (08:09)
[2017-10-28 08:25] VITALS: BP 174/66
[2017-10-28] MEDS: RT-ADVAIR HFA 115/21 MCG PER PUFF IH SCH (08:28)
[2017-10-28] MEDS: NS IV 1000 ML 1,000 ML IV SCH (09:34)
[2017-10-28 12:40] VITALS: BP 161/66
[2017-10-28 12:47] VITALS: BP 161/66
--- NOTE | 2017-10-28 15:10 | Progress Note (SOAP) ---
Subjective Subjective/Events-last exam Afebrile, no acute events. Pain controlled. Review of Systems Date Seen by Provider: October 28, 2017 Time Seen by Provider: 11:04 Objective Exam Last Set of Vital Signs Vital Signs Date Time Temp Pulse Resp B/P (MAP) Pulse Ox O2 Delivery O2 Flow Rate FiO2 10/28/17 12:47 97.5 74 20 161/66 (97) 92 Room Air 10/25/17 21:00 2.00 Capillary Refill : Less Than 3 Seconds I&O Intake and Output 10/28/17 00:00 Intake Total 390 ml Balance 390 ml Intake Oral 390 ml # Voids 4 General: Alert, No Acute Distress Lungs: Clear to Auscultation, Normal Air Movement Heart: Regular Rate, No Murmurs Abdomen: Other (laparoscopic incisions with no erythema or exudate) Neuro: Normal Speech Results/Procedures Lab Laboratory Tests 10/27/17 15:56: Glucometer 225H 10/27/17 20:55: Glucometer 182H 10/28/17 04:57: White Blood Count 12.6H, Red Blood Count 4.44, Hemoglobin 11.0L, Hematocrit 34L , Mean Corpuscular Volume 77L, Mean Corpuscular Hemoglobin 25, Mean Corpuscular Hemoglobin Concent 32, Red Cell Distribution Width 17.2H, Platelet Count 252, Mean Platelet Volume 10.9H, Sodium Level 139, Potassium Level 4.2, Chloride Level 108H, Carbon Dioxide Level 21, Anion Gap 10, Blood Urea Nitrogen 9, Creatinine 0.96, Estimat Glomerular Filtration Rate > 60, BUN/Creatinine Ratio 9 , Glucose Level 178H, Calcium Level 8.4L, Total Bilirubin 1.1H, Aspartate Amino Transf (AST/SGOT) 289H, Alanine Aminotransferase (ALT/SGPT) 336H, Alkaline Phosphatase 178H, Total Protein 6.2L, Albumin 3.5 10/28/17 05:41: Glucometer 189H 10/28/17 11:21: Glucometer 322H Microbiology 10/25/17 MRSA Screen - Final, Complete MRSA not isolated Radiology CXR 10/24: Stable cardiac enlargement RUQ US 10/25: DRAFT IMPRESSION: Findings suggestive of cholelithiasis and gallbladder sludge, some of which appears to be non-mobile near the gallbladder neck. The gallbladder wall is borderline in thickness at 3 mm as well and the possibility of cholecystitis cannot be excluded. If there is concern for acute cholecystitis, nuclear medicine hepatobiliary scan could be performed. Assessment/Plan Assessment/Plan (1) Cholelithiasis Status: Acute Assessment & Plan: Suspected cause of chest pain/nausea/vomiting. Dr. Ruffin consulted. If surgery not soon, consider antibiotics given new elevated WBC today. 10/26- continued increase in LFTs, but decreased WBC, surgery planned for tomorrow am 10/27- labs now trending down, surgery this am. 10/28- lap marissa yesterday am per Dr. Ruffin, discharge per Dr. Ruffin today. Qualifiers: (2) Elevated LFTs Status: Acute Assessment & Plan: Secondary to above, monitor. (3) Leukocytosis Status: Resolved Assessment & Plan: Improved (4) Chest pain Status: Acute Assessment & Plan: No troponin elevation or EKG changes. Cardiology consulted given risk factors, appreciate recommendations. (5) Hypertension Status: Chronic Assessment & Plan: Resume home medications Qualifiers: Qualified Codes: I10 - Essential (primary) hypertension (6) Diabetes mellitus, type 2 Status: Chronic Assessment & Plan: Hold home insulin and metformin while NPO. Sliding scale insulin. Qualifiers: (7) Dementia Status: Chronic (8) COPD (chronic obstructive pulmonary disease) Status: Chronic Assessment & Plan: Stable. RT for duonebs, resume home inhaled steroid. (9) Schizophrenia Status: Chronic Assessment & Plan: Resume home behavioral health meds (10) History of pulmonary embolism Status: Chronic Assessment & Plan: On apixaban, holding in light of possible surgery, resume as soon after surgery as okay with Dr. Ruffin (11) DVT prophylaxis Status: Acute Assessment & Plan: On apixaban chronically, held currently due to pending surgery Clinical Quality Measures AMI/AHF: ASA po Prior to arrival: No DVT/VTE Risk/Contraindication: Risk Factor Score Per Nursin RFS Level Per Nursing on Admit: 2=Moderate Copy Copies To 1: GARETH Silveira BETHANY N MD October 28, 2017 3:10 pm
[2017-10-28] MEDS ORDERED: APIXABAN 2.5 MG (ELIQUIS) TABLET PO SCH (21:00)
--- NOTE | 2017-11-16 04:30 | DISCHARGE SUMMARY ---
DATE OF SERVICE: ATTENDING PRIMARY CARE PHYSICIAN: Dr. Mee Kuo. ADMISSION DIAGNOSIS: Shortness of breath. DISCHARGE DIAGNOSIS: Chronic calculous cholecystitis. ADDITIONAL DIAGNOSES: Coronary artery disease, hypertension, hypercholesterolemia, diabetes, dementia, history of DVT and pulmonary embolism, gastroesophageal reflux disease, anxiety, schizophrenia. PRINCIPAL PROCEDURE: Laparoscopic cholecystectomy. No additional procedures. No complications. DISPOSITION: Home in stable condition. HISTORY OF PRESENT ILLNESS: The patient is a 67-year-old male brought from an extended care nursing facility with chest pain and abdominal pain after eating dinner. The pain lasted for approximately 30 minutes and then did resolve on its own. He also had noticed a dizzy sensation as well as the shortness of breath and sweating. He does have a significant history of coronary artery disease and has undergone an open coronary artery bypass grafting x2 vessels. He also has a history of deep vein thrombosis and pulmonary embolism as well as stroke. He is on aspirin as well as apixaban. Cardiology workup was negative. He also has a pacemaker, which was interrogated and appeared to be in working condition. An ultrasound was also performed, which showed multiple gallstones as well as gallbladder sludge and gallbladder wall thickening consistent with chronic calculous cholecystitis. PAST MEDICAL HISTORY: Coronary artery disease, hypertension, hypercholesterolemia, diabetes, dementia, history of DVT and pulmonary embolism, GERD, anxiety, schizophrenia. PAST SURGERIES: Coronary artery bypass graft x2 vessels, pacemaker implantation. ALLERGIES: No known drug allergies. MEDICATIONS: Apixaban, aspirin, atorvastatin, budesonide, insulin, detemir insulin, lisinopril, loratadine memantine/donepezil, metformin, Zofran, Protonix. SOCIAL HISTORY: Previous smoke, quit in 2016, 50 pack years. Negative alcohol. FAMILY HISTORY: Father and brother, diabetes. Cardiovascular disease in mother, father, brother and sister. Once medically and cardiac cleared, he was brought to the operating room on 10/27/2017 and underwent a laparoscopic cholecystectomy. He did well after surgery and was sent back to the general surgical floor. His postoperative course was uneventful. His vital signs were stable and he was afebrile. His laboratory work was also stable with stable hemoglobin and WBC count. He was started on a clear liquid diet and advanced to a diabetic diet without any difficulty. He also had adequate pain control with oral pain medication. He was also started back on his anticoagulation with aspirin and apixaban. Upon physical examination, his wounds were clean, dry and intact and healing well with no surrounding redness or erythema. He was discharged home on 10/28/2017. HOMEGOING INSTRUCTIONS: Follow a diabetic diet. No activity restrictions; however, no heavy lifting or exertion for the next two weeks. Resume all previous home medications. He is to follow up in the office in approximately 2 weeks. Job ID: [id number] DocumentID: [id number] Dictated Date: 11/15/2017 16:09:15 Make Ready Mechanic Date: 11/16/2017 04:29:52 Dictated By: HONG BANSAL MD
== END 2017-10-28 12:40 | disposition home or self-care (01) ==
LOC: EDUNIT# 18:33 → ER 18:34 → UNDOADMOB 19:40 → 4TH 19:40 → 4THo 20:23 → 4TH 20:23 → UNDOADMOB 20:23 → 4TH 20:23 → 4THo 10-28 12:40 → UNDODISOB 10-28 12:40
PROVIDERS: ATTEND Family Medicine
DX: K80.10 Calculus of gallbladder with chronic cholecystitis without obstruction (principal); R07.9 Chest pain, unspecified; I25.10 Atherosclerotic heart disease of native coronary artery without angina pectoris; I10 Essential (primary) hypertension; E78.5 Hyperlipidemia, unspecified; E11.9 Type 2 diabetes mellitus without complications; J44.9 Chronic obstructive pulmonary disease, unspecified; F03.90 Unspecified dementia, unspecified severity, without behavioral disturbance, psychotic disturbance, mood disturbance, and anxiety; F20.9 Schizophrenia, unspecified; K21.9 Gastro-esophageal reflux disease without esophagitis; F41.9 Anxiety disorder, unspecified; Z86.711 Personal history of pulmonary embolism; Z86.718 Personal history of other venous thrombosis and embolism; Z95.0 Presence of cardiac pacemaker; Z79.01 Long term (current) use 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s; Z95.1 Presence of aortocoronary bypass graft; Z79.82 Long term (current) use of aspirin; Z79.4 Long term (current) use of insulin; Z87.891 Personal history of nicotine dependence
CPT/HCPCS: 36415; 71045; 76705; 80053; 80061; 82150; 82550; 82553; 82962; 83690; 83735; 83874; 83880; 84484; 85007; 85025; 85027; 85610; 85730; 87081; 88304; 93005; 93041; 94760

== ENCOUNTER 2018-05-30 10:31 | Day surgery (SDC) | payer MEDICAID ==
[2018-05-30] VITALS (14 sets, daily range): BP systolic 114–142; BP diastolic 49–68
[~2018-05-30] VITALS: Ht 167.6 cm; Wt 81.6 kg
[~2018-05-30 10:31] MED LIST changes: +ESCI10TA PO; +HYDR-34 PO; +IBUP-2185 PO; -IBUP200C75 PO; +METF-397 PO; -METF500T5 PO
[2018-05-30] MEDS ORDERED: NS IV 1000 ML 1,000 ML IV ONE (10:46)
[2018-05-30] MEDS ORDERED: LIDOCAINE 1% INJ 20 ML 20 ML VIAL ONE (10:49)
[2018-05-30] MEDS ORDERED: HEParin (CATH LAB) 1,000 ML IV ONE (10:49)
[2018-05-30] MEDS ORDERED: NS IV 1000 ML 1,000 ML ONE (10:49)
[2018-05-30] MEDS ORDERED: ceFAZolin 1,000 MG/10 ML (ANCEF) VIAL ONE (10:49)
[2018-05-30] MEDS ORDERED: BACITRACIN INJECTION 50,000 UNIT, SODIUM CHLORIDE 0.9% IRRIGATIO 500 ML IR ONE ×2 (11:00)
[2018-05-30] MEDS ORDERED: ceFAZolin 1,000 MG/10 ML (ANCEF) VIAL IV ONE (11:00)
--- NOTE | 2018-05-30 11:19 | Diagnostic Imaging Report ---
Indication: Coronary artery disease, arrhythmia, preop. Portable chest 11:13 AM The postop changes from CABG surgery. There is a dual-chamber pacemaker. Heart size and pulmonary vascular normal. Lungs are clear. No effusions or pneumothoraces. Impression: No acute abnormalities the chest Dictated by: Dictated on workstation # [id number]
[2018-05-30 11:29] LABS: BILIRUBIN,URINE NEGATIVE (NEGATIVE); CLARITY,URINE CLEAR; COLOR,URINE YELLOW; GLUCOSE, URINE (UA) 2+ (NEGATIVE); HEMOGLOBIN 11.9 G/DL (13.3-17.7); KETONES,URINE NEGATIVE (NEGATIVE); LEUKOCYTE ESTERASE ,URINE 1+ (NEGATIVE); MEAN PLATELET VOLUME 10.4 FL (7.4-10.4); NITRITE,URINE NEGATIVE (NEGATIVE); PH,URINE 5 (5-9); PROTEIN,URINE 1+ (NEGATIVE); RED BLOOD COUNT 4.99 10^6/uL (4.35-5.85); RED CELL DISTRIBUTION WIDTH 16.9 % (10.0-14.5); UROBILINOGEN,URINE NORMAL (NORMAL); WHITE BLOOD COUNT 13.8 10^3/uL (4.3-11.0)
[2018-05-30 11:39] LABS: BACTERIA,URINE NEGATIVE /HPF; HYALINE CASTS, URINE 0-2 /LPF; SQUAMOUS EPITHELIAL CELL,UR RARE /HPF
[2018-05-30 11:47] LABS: INR 1.1 (0.8-1.4); PROTHROMBIN TIME PATIENT 14.5 SEC (12.2-14.7)
[2018-05-30] MEDS ORDERED: NS (IVPB) 50 ML ONE (11:57)
[2018-05-30 12:02] LABS: ALBUMIN 4.4 GM/DL (3.2-4.5); BILIRUBIN,TOTAL 0.5 MG/DL (0.1-1.0); CALCIUM 9.3 MG/DL (8.5-10.1); CREATININE SERUM 1.23 MG/DL (0.60-1.30); POTASSIUM 4.4 MMOL/L (3.6-5.0); TOTAL PROTEIN 7.6 GM/DL (6.4-8.2)
[2018-05-30] MEDS ORDERED: INSU100V16 SQ (13:03)
[2018-05-30] MEDS ORDERED: MELA3TAB PO (13:03)
[2018-05-30] MEDS ORDERED: LOPE2CAP PO (13:05)
[2018-05-30] MEDS ORDERED: METO-387 PO (13:08)
[2018-05-30] MEDS ORDERED: TRAM50TA2 PO (13:08)
--- NOTE | 2018-05-30 13:10 | NUR ---
RECEIVED LIST FROM [facility]IA [facility]
[2018-05-30] MEDS ORDERED: fentaNYL INJECTION 100 MCG/2 ML AMP ONE (13:22)
[2018-05-30] MEDS ORDERED: MIDAZOLAM 5 MG/5 ML (VERSED) VIAL ONE (13:22)
--- NOTE | 2018-05-30 13:32 | Cardiac Procedure Note-CS/ASA ---
Pre-Procedure Note Pre-Op Procedure Note H&P Reviewed The H&P was reviewed, patient examined and no changes noted. Date H&P Reviewed: May 30, 2018 Time H&P Reviewed: 13:31 Conscious Sedation Pre-Proced Time 13:32 ASA Score 3 For ASA 3 and 4: Consider anesthesia and medical clearance. Also, for patients with a history of failed moderate sedation consider anesthesia. Airway Lungs Heart ASA score ASA 1: a normal healthy patient ASA 2: a patient with a mild systemic disease (mid diabetes, controlled hypertension, obesity x ASA 3: a patient with a severe systemic disease that limits activity (angina , COPD, prior Myocardial infarction) ASA 4: a patient with an incapacitating disease that is a constant threat to life (CHF, renal failure) ASA 5: a moribund patient not expected to survive 24 hrs. (ruptured aneurysm) ASA 6: a declared brain patient whose organs are being harvested. For emergent operations, add the letter E after the classification Mallampati Classification Grade 3 Sedation Plan Analgesia, Amnesia, Plan communicated to team members, Discussed options with patient/fam, Discussed risks with patient/fam The patient is an appropriate candidate to undergo the planned procedure, sedation, and anesthesia. The patient immediately re-assessed prior to indication. TL RAMSEY MD May 30, 2018 13:32
--- OUTSIDE RECORDS SUMMARY | 2018-05-30 14:14 | XMS REPORT ---
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 Active 707900706 Problem DM neuro manif type II E11.49 Active 61449673 Problem Schizophrenia, unspecified type F20.9 Active 22796212 Problem GERD (gastroesophageal reflux disease) K21.9 Active 786742660 Problem Other chronic pain G89.29 Active 56060840 Problem Anxiety F41.9 Active 19691812 Problem Dementia without behavioral disturbance, unspecified dementia type F03.90 Active 04434094 Problem Anemia, iron deficiency D50.9 Active 66422427 Problem Insomnia, unspecified type G47.00 Active 454148406 ALLERGIES No Information ENCOUNTERS Encounter Location Date [facility] [address] [id number] Apr, Diabetes type 2, controlled E11.9 and Dementia without behavioral disturbance, unspecified dementia type F03.90 [facility] [address] [facility] [id number] [address] Mar, GERD (gastroesophageal reflux disease) K21.9 [facility] [address] [facility] [id number] [place] [address] Mar, Via [facility] [address] [id number] Jan, Low back pain M54.5 ; Other chronic pain G89.29 ; Diabetes type 2, controlled E11.9 ; Anemia, iron deficiency D50.9 ; Essential hypertension I10 and snf 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 Via [facility] [address] [place] [id number] Nov, Insomnia, unspecified type G47.00 [place] [address] [place] [address] [id number] [place] [address]- 6103 Nov, DM neuro manif type II E11.49 [place] [address] [place] [address] [id number] [place] [address]23- 8259 October, [place] [address] [address] October, Via [facility] [address] [place] [id number] October, Anxiety F41.[address] [address] October, [place] [id number] [place] [address] 22161- 8345 Sep, Via [facility] [address] [place] [id number] Sep, Bronchitis J40 and Cough R05 [place] [id number] [place] [address] 11161- 2073 Aug, Via [facility] [address] [id number] Aug, Nausea R11.0 and Weakness R53.1 [facility] [address] [place] [id number] Jun, Diabetes type 2, controlled E11.9 and 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 [place] [id number] [place] [address] [id number]- 2663 Mar, [place] [id number] [place] [address] 35816- 3242 Mar, Via [facility] [address] [id number] Mar, Dementia without behavioral disturbance, unspecified dementia type F03.90 and Diabetes type 2, controlled E11.9 [place] [address]005[address]100[place] [address] Jan, Via [facility] [address] [id number] Jan, Diabetes type 2, controlled E11.9 ; Chronic obstructive pulmonary disease, unspecified COPD type J44.9 and Essential hypertension I10 [place] [address]00565100[place] [address] Nov, Via [facility] [address] [place] [id number] Nov, Chronic obstructive pulmonary disease, unspecified COPD type J44.9 and Diabetes type 2, controlled E11.9 [facility] [address] [place] [id number] October, Diabetes type 2, controlled E11.9 and Essential hypertension I10 [place] [id number] [place] [address] [id number] October, Cough R05 [facility] [address] [place] [id number] Aug, Acute nasopharyngitis J00 [facility] [address] [place] [id number] Jun, Diabetes type 2, controlled E11.9 ; Schizophrenia, unspecified type F20.9 and History of pulmonary embolus (PE) Z86.711 [place] [address] [place] [id number] [address] May, [place] [address] [address] May, [place] [address] [place] [address] 979570- 1016 Mar, Via [facility] [address] [place] [id number] Mar, Diabetes type 2, controlled E11.9 ; History of pulmonary embolus (PE) Z86.711 and Schizophrenia, unspecified type F20.9 [place] [id number] [place] [address] [id number]- 4619 Mar, [place] [address] 196529- 3866 Mar, [place] [id number] [place] [address] [id number] Mar, CAP (community acquired pneumonia) J18.9 and snf 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 [facility] [id number] [place] [address] [id number] Feb, [address] [id number] Feb, [place] [id number] [place] [address] [id number] Feb, DM neuro manif type II E11.49 ; Schizophrenia, unspecified type F20.9 and snf 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 [place] [id number] [place] [address] 75791- 6014 Feb, Xerosis of skin L85.3 ; Other hammer toe(s) (acquired), right foot M20.41 ; Other hammer toe(s) (acquired), left foot M20.42 and DM neuro manif type II E11.49 [facility] [id number] [place] [address] [id number] Jan, [place] [id number] [place] [address] [id number] Jan, 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 [facility] [id number] [place] [address] [id number] Jan, DM neuro manif type II E11.49 ; snf 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 and Schizophrenia, unspecified type F20.9 [place] [id number] [place] [address] [id number] Dec, DM neuro manif type II E11.49 ; 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 and Schizophrenia, unspecified type F20.9 [facility] [id number] [place] [address] [id number] 14 Nov, 2015 snf 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 [facility] [id number] [place] [address] [id number] 10 Nov, 2015 DM neuro manif type II E11.49 [facility] [address] [id number] 07 Nov, 2015 DM neuro manif type II E11.49 and snf 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 [place] [address] [address] Nov, Onychomycosis B35.1 ; Other hammer toe(s) (acquired), right foot M20.41 ; Other hammer toe(s) (acquired), left foot M20.42 and DM neuro manif type II E11.49 [facility] [id number] [place] [address] [id number] October, [facility] [address] [id number] October, [facility] [address] [id number] Sep, [place] [address] [id number] Aug, [place] [address] [place] [id number] [place] [address] [phone] Aug, Onychomycosis B35.1 ; Xerosis cutis L85.3 and DM neuro manif type II E11.49 [facility] [id number] [place] [address] [id number] Jul, [facility] [id number] [place] [address] [id number] Jun, [facility] [address] [id number] Jun, Hyperglycemia R73.9 [facility] [id number] [place] [address] [id number] Jun, [facility] [id number] [place] [address] [id number] Jun, [address] [place] [address] [id number] Jun, Hyperglycemia R73.9 and snf 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 [place] [address] [id number] May, [facility] [address] [address] May, Onychomycosis B35.1 ; 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 and Xerosis cutis L85.3 [address] [place] [address] [id number] Apr, snf 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 [place] [id number] [place] [address] [id number] Mar, [place] [address] [place] [address] [id number] Mar, snf 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 [place] [address] [place] [address] [id number] Mar, Diabetes type 2, controlled E11.9 and Encounter for immunization Z23 [place] [address] [id number] [phone] Mar, [address] [place] [address] [id number] Mar, 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 [place] [address] [id number] Feb, [address] [place] [address] [id number] Feb, Hx of cardiac pacemaker V12.50 ; Hypertension 401.9 ; COPD (chronic obstructive pulmonary disease) 496 and History of hallucinations V11.9 IMMUNIZATIONS No Known Immunizations SOCIAL HISTORY Never Assessed REASON FOR VISIT Fdc PLAN OF CARE Activity Details Follow Up prn Reason: VITAL SIGNS MEDICATIONS Medication Instructions Dosage Frequency Start Date End Date Duration Status NovoLog Flexpen 100 UNIT/ML INJECT 8 UNITS SUBCUTANEOUSLY 3 TIMES DAILY WITH MEALS... Active Eliquis 2.5 MG Orally 2 times a day 12h Active Insulin Syringe-Needle U-100 30G X 10/18 as directed Jun, Active Symbicort 160-4.5 MCG/ACT Inhalation Twice a day 2 puffs 12h Nov, 30 days Active NovoLog Flexpen 100 UNIT/ML Subcutaneous 3 times a day with meals 15 units Active Namzaric 7-10 MG Orally Once a day 1 capsule in the evening 24h Mar, 30 day(s) Active Tylenol 325 MG Orally every 4 hrs 2 tablets as needed 4h Active Levemir FlexTouch 100 UNIT/ML Subcutaneous 2 times a day. 15 u Jun, Active Claritin 10 MG Orally Once a day 1 tablet 24h Active Metformin HCl 500 mg Orally Twice a day 2 tablet in AM and 1 in PM 12h Mar, Active RESULTS No Results PROCEDURES Procedure Date Ordered Result Body Site Minor complication (15 mins) August 29, 2017 INSTRUCTIONS MEDICATIONS ADMINISTERED No Known Medications MEDICAL (GENERAL) HISTORY Type Description Date Medical History hypertension Medical History diabetes mellitus Medical History heart disease, CAD Medical History psych disorder- hallucinations Medical History COPD Medical History Previous CVA 2007 Medical History Hx of DVT Surgical History cardiac pacemaker Surgical History bypass surgeries x's 2 Surgical History lap cholecystectomy. Cholelithiasis 10/2017 Hospitalization History had CVA Audi 2007 Hospitalization History COPD Exacerbation, anemia, acute kidney injury 2015
--- OUTSIDE RECORDS SUMMARY | 2018-05-30 14:14 | XMS REPORT ---
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 Active 042221735 Problem DM neuro manif type II E11.49 Active 49068150 Problem Schizophrenia, unspecified type F20.9 Active 19481915 Problem GERD (gastroesophageal reflux disease) K21.9 Active 981613342 Problem Other chronic pain G89.29 Active 66692203 Problem Anxiety F41.9 Active 73852098 Problem Dementia without behavioral disturbance, unspecified dementia type F03.90 Active 57927466 Problem Anemia, iron deficiency D50.9 Active 69892878 Problem Insomnia, unspecified type G47.00 Active 204916355 ALLERGIES No Information ENCOUNTERS Encounter Location Date Diagnosis [facility] [address] [id number] Apr, Diabetes type 2, controlled E11.9 and Dementia without behavioral disturbance, unspecified dementia type F03.90 [facility] [address] [facility] [id number] [address] Mar, GERD (gastroesophageal reflux disease) K21.9 [facility] [address] [facility] [id number] [address] Mar, Via [facility] [address] [id number] Jan, Low back pain M54.5 ; Other chronic pain G89.29 ; Diabetes type 2, controlled E11.9 ; Anemia, iron deficiency D50.9 ; Essential hypertension I10 and [facility] 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 Via [facility] [address] [place] [id number] Nov, Insomnia, unspecified type G47.00 [place] [id number] [place] [address] 00712- 5257 Nov, DM neuro manif type II E11.49 [place] [id number] [place] [address] 41939- 4067 October, [place] [address] [address]- [address] October, Via [facility] [address] [place] [id number] October, Anxiety F41.[address] [address]- [address] October, [place] [id number] [place] [address] 26875- 5145 Sep, Via [facility] [address] [place] [id number] Sep, Bronchitis J40 and Cough R05 [place] [id number] [place] [address] 59234- 9236 Aug, Via [facility] [address] [id number] Aug, Nausea R11.0 and Weakness R53.1 [facility] [address] [place] [id number] Jun, Diabetes type 2, controlled E11.9 and manager long term care 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 [place] [id number] [place] [address] [id number]- 2245 Mar, [place] [id number] [place] [address] 49366- 3367 Mar, Via [facility] [address] [id number] Mar, Dementia without behavioral disturbance, unspecified dementia type F03.90 and Diabetes type 2, controlled E11.9 [place] [address]00565100[place], [place] [address] Jan, Via [facility] [address] [id number] Jan, Diabetes type 2, controlled E11.9 ; Chronic obstructive pulmonary disease, unspecified COPD type J44.9 and Essential hypertension I10 [place] [address]100[place], [place] [address] 2546 Nov, Via [facility] [address] [place] [id number] Nov, Chronic obstructive pulmonary disease, unspecified COPD type J44.9 and Diabetes type 2, controlled E11.9 [facility] [address] [place] [id number] October, Diabetes type 2, controlled E11.9 and Essential hypertension I10 [place] [id number] [place] [address] [id number] October, Cough R05 [facility] [address] [place] [id number] Aug, Acute nasopharyngitis J00 [facility] [address] [place] [id number] Jun, Diabetes type 2, controlled E11.9 ; Schizophrenia, unspecified type F20.9 and History of pulmonary embolus (PE) Z86.711 [place] [address] [address] [id number] [address] May, [place] [address], [place] [address]- 3829 May, [place] [address] [place] [address] 003830- 3336 Mar, Via [facility] [address] [place] [id number] Mar, Diabetes type 2, controlled E11.9 ; History of pulmonary embolus (PE) Z86.711 and Schizophrenia, unspecified type F20.9 [place] [id number] [place] [address] [phone]- 1845 Mar, [place] [address] 831769- 7556 Mar, [place] [id number] [place] [address] [id number] Mar, CAP (community acquired pneumonia) J18.9 and [facility]FP 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 [facility] [id number] [place] [address] [id number] Feb, [address] [id number] Feb, [place] [address] [place] [address] [id number] Feb, DM neuro manif type II E11.49 ; Schizophrenia, unspecified type F20.9 and [facility]FP 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 [place] [id number] [place] [address] 22601- 0729 Feb, Xerosis of skin L85.3 ; Other hammer toe(s) (acquired), right foot M20.41 ; Other hammer toe(s) (acquired), left foot M20.42 and DM neuro manif type II E11.49 [facility] [id number] [place] [address] [id number] Jan, [place] [id number] [place] [address] [id number] Jan, manager long term care 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 [facility] [id number] [place] [address] [id number] Jan, DM neuro manif type II E11.49 ; [facility] 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 and Schizophrenia, unspecified type F20.9 [place] [id number] [place] [address] [id number] Dec, DM neuro manif type II E11.49 ; manager long term care 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 and Schizophrenia, unspecified type F20.9 [facility] [id number] [place] [address] [id number] 14 Nov, 2015 [facility] 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 [facility] [place] [id number] [place] [address] [id number] 10 Nov, 2015 DM neuro manif type II E11.49 [facility] [place] [address] [id number] 07 Nov, 2015 DM neuro manif type II E11.49 and [facility]FP 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 [place] [address] [address]- [address] Nov, Onychomycosis B35.1 ; Other hammer toe(s) (acquired), right foot M20.41 ; Other hammer toe(s) (acquired), left foot M20.42 and DM neuro manif type II E11.[address] [facility] [place] [id number] [place] [address] [id number] October, [facility] [address] [id number] October, [facility] [place] [address] [id number] Sep, [place] [address] [id number] Aug, [place] [id number] [place] [address] 50707 2541 Aug, Onychomycosis B35.1 ; Xerosis cutis L85.3 and DM neuro manif type II E11.49 [facility] [place] [id number] [place] [address] [id number] Jul, [facility] [place] [id number] [place] [address] [id number] Jun, [facility] [place] [address] [id number] Jun, Hyperglycemia R73.9 [facility] [place] [id number] [place] [address] [id number] Jun, [facility] [id number] [place] [address] [id number] Jun, [address] [place] [address] [id number] Jun, Hyperglycemia R73.9 and [facility] 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 [place] [address] [id number] May, [facility] [address] [address] May, Onychomycosis B35.1 ; 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 and Xerosis cutis L85.3 [address] [place] [address] [id number] Apr, [facility] 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 [place] [address] [id number] Mar, [place] [id number] [place] [address] [id number] Mar, [facility] 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 [address] [place] [address] [id number] Mar, Diabetes type 2, controlled E11.9 and Encounter for immunization Z23 [facility] [address] [id number] [id number] Mar, [address] [place] [address] [id number] Mar, manager long term care 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 [place] [address] [id number] Feb, [address] [place] [address] [id number] Feb, Hx of cardiac pacemaker V12.50 ; Hypertension 401.9 ; COPD (chronic obstructive pulmonary disease) 496 and History of hallucinations V11.9 IMMUNIZATIONS No Known Immunizations SOCIAL HISTORY Never Assessed REASON FOR VISIT Routine Visit PLAN OF CARE Activity Details Follow Up prn Reason: VITAL SIGNS MEDICATIONS Medication Instructions Dosage Frequency Start Date End Date Duration Status Lisinopril 10 MG Orally Once a day 1 tablet 24h 30 days Active Claritin 10 MG Orally Once a day 1 tablet 24h Active Toprol XL 25 MG Orally Once a day 1 tablet 24h 30 day(s) Active Eliquis 2.5 MG Orally 2 times a day 12h Active Ibuprofen 200 mg Orally every 6 hrs 3 tablets as needed 6h Active Tramadol HCl 50 mg Orally 2 times a day 1 tablet as needed 12h 21 Jan, 2018 Active Robitussin Cold/Congestion Mar, Active Escitalopram Oxalate 10 mg Orally Once a day 1 tablet 24h 15 Oct, 2017 30 day(s) Active Atorvastatin Calcium 10 MG Orally Once a day 1 tablet 24h Active Imodium A-D 2 MG Orally after each loose stool. Not to exceed 4 tablets in one day 1 tablet as needed Mar, Active Tylenol 325 MG Orally every 4 hrs 2 tablets as needed 4h Active Symbicort 160-4.5 MCG/ACT Inhalation Twice a day 2 puffs 12h Nov, 30 days Active Ondansetron 8 MG Orally three times per day as needed 1 tablet on the tongue and allow to dissolve Active Protonix 40 MG Orally Once a day 1 tablet 24h Mar, 30 day(s) Active Namzaric 7-10 MG Orally Once a day 1 capsule in the evening 24h 18 Mar, 2017 30 day(s) Active Metformin HCl 500 mg Orally twice a day 1 tablet with a meal 12h Mar, Active Lisinopril 20 MG Orally Once a day 1 tablet 24h Active Melatonin 3 MG Orally at bedtime 1 tablet at bedtime Nov, Active NovoLog Flexpen 100 UNIT/ML Subcutaneous 3 times a day with meals 5 units Active Antacid M 200-200-20 MG/5ML Orally every 4 hrs 30 ml as needed 4h Mar, Active RESULTS No Results PROCEDURES Procedure Date Ordered Result Body Site Stable Visit (10 minutes) Apr 24, 2018 INSTRUCTIONS MEDICATIONS ADMINISTERED No Known Medications MEDICAL [...]
--- OUTSIDE RECORDS SUMMARY | 2018-05-30 14:15 | XMS REPORT ---
Author Author KELSIE SHAW [facility] Address [address] [place] [address] Care Team Providers Care Molecular Modeler Name Role Phone KELSIE SHAW Unavailable PROBLEMS Type Condition ICD9-CM Code GMY99-CH Code Onset Dates Condition Status SNOMED Code Problem Schizophrenia, unspecified type F20.9 Active 89093914 Problem Essential hypertension I10 Active 56290071 Problem History of pulmonary embolus (PE) Z86.711 Active 320898331 Problem Diabetes type 2, controlled E11.9 Active 86116324 Problem intermediate 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 Active 198411321 Problem DM neuro manif type II E11.49 Active 84638291 Problem Other chronic pain G89.29 Active 12883694 Problem Anemia, iron deficiency D50.9 Active 23659505 Problem Dementia without behavioral disturbance, unspecified dementia type F03.90 Active 21348540 Problem Chronic obstructive pulmonary disease, unspecified COPD type J44.9 Active 04676636 Problem Insomnia, unspecified type G47.00 Active 903602721 Problem Anxiety F41.9 Active 49385973 ALLERGIES No Information ENCOUNTERS Encounter Location Date Diagnosis [facility] [address] [place] [id number] Jan, Low back pain M54.5 ; Other chronic pain G89.29 ; Diabetes type 2, controlled E11.9 ; Anemia, iron deficiency D50.9 ; Essential hypertension I10 and 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 [facility] [address] [place] [id number] Nov, Insomnia, unspecified type G47.00 [facility] [place] [address] [id number] [address] Nov, DM neuro manif type II E11.49 [facility] [place] [address] [id number], [place] [address] October, [place] [id number], [place] [address] October, [facility] [address] [place] [id number] October, Anxiety F41.9 [place] [address], [place] [address] October, [place] [id number] [place] [address]676- [address] Sep, Via [facility] [address] [place] [id number] Sep, Bronchitis J40 and Cough R05 [place] [address] [place] [address] 26465- 1803 Aug, [facility] [address] [place] [id number] Aug, Nausea R11.0 and Weakness R53.1 [facility] [address] [place] [id number] Jun, Diabetes type 2, controlled E11.9 and intermediate 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 [place] [address] [place] [address] 08105- 6017 Mar, [place] [address] [place] [address] 33254- 5535 Mar, [facility] [address] [place] [id number] Mar, Dementia without behavioral disturbance, unspecified dementia type F03.90 and Diabetes type 2, controlled E11.9 [place] [address] [place] [address] 63705- 8075 Jan, Via [facility] [address] [place] [id number] Jan, Diabetes type 2, controlled E11.9 ; Chronic obstructive pulmonary disease, unspecified COPD type J44.9 and Essential hypertension I10 [place] [id number] [place] [address] 51369- 1876 Nov, Via [facility] [address] [place] [id number] Nov, Chronic obstructive pulmonary disease, unspecified COPD type J44.9 and Diabetes type 2, controlled E11.9 Via [facility] [address] [place] [id number] October, Diabetes type 2, controlled E11.9 and Essential hypertension I10 [facility] [id number] [place] [id number] October, Cough R05 [facility] [address] [place] [id number] Aug, Acute nasopharyngitis J00 [facility] [address] [place] [id number] Jun, Diabetes type 2, controlled E11.9 ; Schizophrenia, unspecified type F20.9 and History of pulmonary embolus (PE) Z86.711 [facility] [place] [address] [place] [address] 03576- 4442 May, [facility] [place] [address] [place] [address] 13268- 1589 May, [facility] [place] [address] [place] [address] 47913- 7757 Mar, [facility] [place] [address] [place] [id number] Mar, Diabetes type 2, controlled E11.9 ; History of pulmonary embolus (PE) Z86.711 and Schizophrenia, unspecified type F20.9 [facility] [place] [address], [place] [address] Mar, [facility] [place] [address] [place] [address] 15775- 0688 Mar, [address] [place] [address] [id number] Mar, CAP (community acquired pneumonia) J18.9 and 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 [place] [address] [id number] Feb, [facility] [place] [id number] [phone] Feb, [facility] [id number] [place] [address] [phone] Feb, DM neuro manif type II E11.49 ; Schizophrenia, unspecified type F20.9 and 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 [facility] [place] [address] [address] Feb, Xerosis of skin L85.3 ; Other hammer toe(s) (acquired), right foot M20.41 ; Other hammer toe(s) (acquired), left foot M20.42 and DM neuro manif type II E11.49 [facility] [id number] [place] [address] [id number] Jan, [facility] [address] [place] [address] [phone] Jan, intermediate 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 [address] [place] [id number] Jan, DM neuro manif type II E11.49 ; intermediate 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 and Schizophrenia, unspecified type F20.9 [facility] [address] [place] [address] [id number] Dec, DM neuro manif type II E11.49 ; intermediate 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 and Schizophrenia, unspecified type F20.9 [facility] [address] [place] [address] [id number] Nov, intermediate 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 [facility] [address] [phone] Nov, DM neuro manif type II E11.49 [facility] [address] [place] [address] [phone] Nov, DM neuro manif type II E11.49 and intermediate 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 [facility] [place] [id number] [address] Nov, Onychomycosis B35.1 ; Other hammer toe(s) (acquired), right foot M20.41 ; Other hammer toe(s) (acquired), left foot M20.42 and DM neuro manif type II E11.49 [address] [id number] [place] [address] [phone] October, [id number] [place] [address] [phone] October, [id number] [place] [address] [phone] Sep, [id number] [place] [address] [id number] Aug, [place] [address] [phone]- [address] Aug, Onychomycosis B35.1 ; Xerosis cutis L85.3 and DM neuro manif type II E11.49 [address] [address] [id number] [place] [address] [id number] Jul, [address] [address] [address] [place] [address] [id number] Jun, [address] [address] [place] [address] [id number] Jun, Hyperglycemia R73.9 [address] [place] [address] [id number] Jun, [address] [place] [address] [id number] Jun, [address] [address] [place] [address] [phone] Jun, Hyperglycemia R73.9 and 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 [id number] [place] [address] [id number] May, [place] [address] [phone] May, Onychomycosis B35.1 ; 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 and Xerosis cutis L85.3 [address] [address] [id number] Apr, 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 [id number][place] [id number] Mar, [address] [id number][place] [phone] Mar, intermediate 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 [id number] [id number] Mar, Diabetes type 2, controlled E11.9 and Encounter for immunization Z23 [address] [id number] [phone] Mar, [address] [id number][place] [phone] Mar, 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 [address] [phone] Feb, [address] [id number][place] [id number] Feb, Hx of cardiac pacemaker V12.50 ; Hypertension 401.9 ; COPD (chronic obstructive pulmonary disease) 496 and History of hallucinations V11.9 IMMUNIZATIONS No Known Immunizations SOCIAL HISTORY Never Assessed REASON FOR VISIT Detention PLAN OF CARE Activity Details Follow Up prn Reason: VITAL SIGNS MEDICATIONS Medication Instructions Dosage Frequency Start Date End Date Duration Status Atorvastatin Calcium 10 MG Orally Once a day 1 tablet 24h Unknown Levemir FlexTouch 100 UNIT/ML Subcutaneous 2 times a day. 15 u Jun, Unknown Tylenol 325 MG Orally every 4 hrs 2 tablets as needed 4h Unknown Lisinopril 20 MG Orally Once a day 1 tablet 24h Unknown Insulin Syringe-Needle U-100 30G X 5/16 as directed Jun, Unknown Namzaric 7-10 MG Orally Once a day 1 capsule in the evening 24h 18 Mar, 2017 30 day(s) Unknown Metformin HCl 500 mg Orally twice a day 1 tablet with a meal 12h Mar, Unknown Ondansetron 8 MG Orally three times per day as needed 1 tablet on the tongue and allow to dissolve Unknown Milk of Magnesia Concentrate 2400 MG/10ML Orally every 4 hrs 30ml as needed 4h Unknown Ibuprofen 200 mg Orally every 6 hrs 3 tablets as needed 6h Unknown Escitalopram Oxalate 10 mg Orally Once a day 1 tablet 24h October, 30 day(s) Unknown Symbicort 160-4.5 MCG/ACT Inhalation Twice a day 2 puffs 12h 13 Nov, 2016 30 days Unknown Melatonin 3 MG Orally Once a day 1 tablet at bedtime as needed with food 24h 12 Nov, 2017 30 day(s) Active NovoLog Flexpen 100 UNIT/ML Subcutaneous 3 times a day with meals 5 units Unknown Eliquis 2.5 MG Orally 2 times a day 12h Unknown Claritin 10 MG Orally Once a day 1 tablet 24h Unknown RESULTS No Results PROCEDURES Procedure Date Ordered Result Body Site Minor complication (15 mins) November 14, 2017 INSTRUCTIONS MEDICATIONS ADMINISTERED No Known Medications MEDICAL (GENERAL) HISTORY Type Description Date Medical History hypertension Medical History diabetes mellitus Medical History heart disease, CAD Medical History psych disorder- hallucinations Medical History COPD Medical History Previous CVA 2007 Medical History Hx of DVT Surgical History cardiac pacemaker Surgical History bypass surgeries x's 2 Hospitalization History had CVA [facility] 2007 Hospitalization History COPD Exacerbation, anemia, acute kidney injury 2015
--- OUTSIDE RECORDS SUMMARY | 2018-05-30 14:15 | XMS REPORT ---
Author Author AARON RAMOS [facility] Address [address] [place] [address] Care Team Providers Care Extension Service Advisor Name Role Phone AARON RAMOS Unavailable PROBLEMS Type Condition ICD9-CM Code GDT82-AL Code Onset Dates Condition Status SNOMED Code Problem Schizophrenia, unspecified type F20.9 Active 43176699 Problem Essential hypertension I10 Active 82143813 Problem History of pulmonary embolus (PE) Z86.711 Active 419241435 Problem Diabetes type 2, controlled E11.9 Active 57601409 Problem long-term 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 Active 562991690 Problem DM neuro manif type II E11.49 Active 14913514 Problem Other chronic pain G89.29 Active 66425443 Problem Anemia, iron deficiency D50.9 Active 82136517 Problem Dementia without behavioral disturbance, unspecified dementia type F03.90 Active 22637857 Problem Chronic obstructive pulmonary disease, unspecified COPD type J44.9 Active 36475087 Problem Insomnia, unspecified type G47.00 Active 247074948 Problem Anxiety F41.9 Active 90913231 ALLERGIES No Information ENCOUNTERS Encounter Location Date Diagnosis Via [facility] [address] [place] [id number] Jan, Low back pain M54.5 ; Other chronic pain G89.29 ; Diabetes type 2, controlled E11.9 ; Anemia, iron deficiency D50.9 ; Essential hypertension I10 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 Via [email or web address] [address] [place] [id number] Nov, Insomnia, unspecified type G47.00 [facility] [address] [id number], [place] [address] Nov, DM neuro manif type II E11.49 [facility] [address] [id number], [place] [address] 8[address] October, [facility] [id number], [place] [address] October, Via [email or web address] [address] [place] [id number] October, Anxiety F41.9 [place] [address] [address], [place] [address] October, [address] [address] [place] [address] 51588- 4325 Sep, Via [email or web address] [address] [place] [id number] Sep, Bronchitis J40 and Cough R05 [address] [address] [place] [address] 63630- 4780 Aug, Via [email or web address] [address] [place] [id number] Aug, Nausea R11.0 and Weakness R53.1 [facility] [email or web address] [address] [place] [id number] Jun, Diabetes type 2, controlled E11.9 and long-term 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 [place] [address] [place] [address] 03528- 3404 Mar, [place] [address] [place] [address] 60090- 1013 Mar, Via [email or web address] [address] [place] [id number] Mar, Dementia without behavioral disturbance, unspecified dementia type F03.90 and Diabetes type 2, controlled E11.9 [place] [id number], [place] [address]- [address] Jan, Via [email or web address] [address] [place] [id number] Jan, Diabetes type 2, controlled E11.9 ; Chronic obstructive pulmonary disease, unspecified COPD type J44.9 and Essential hypertension I10 [place] [address] [place] [address] 96553- 0832 Nov, Via [email or web address] [address] [place] [id number] Nov, Chronic obstructive pulmonary disease, unspecified COPD type J44.9 and Diabetes type 2, controlled E11.9 Via [facility] [employer] [address] [place] [id number] October, Diabetes type 2, controlled E11.9 and Essential hypertension I10 [facility] [id number] [place] [address] [id number] October, Cough R05 [facility] [email or web address] [address] [place] [place] [id number] Aug, Acute nasopharyngitis J00 [facility] [email or web address] [address] [place] [id number] Jun, Diabetes type 2, controlled E11.9 ; Schizophrenia, unspecified type F20.9 and History of pulmonary embolus (PE) Z86.711 [facility] [address] [place] [address] 81188- 1638 May, [facility] [id number] [place] [address] [id number]- 4572 May, [facility] [id number] [place] [address] 87494- 5873 Mar, Via [facility] [employer] [facility] [address] [place] [id number] Mar, Diabetes type 2, controlled E11.9 ; History of pulmonary embolus (PE) Z86.711 and Schizophrenia, unspecified type F20.9 [facility] [address] [place] [address] 22639- 0690 Mar, [facility] [address] [place] [address] 27868- 0144 Mar, [address] [place] [address] [id number] Mar, CAP (community acquired pneumonia) J18.9 and long-term 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 [facility] [id number] [place] [address] [id number] Feb, [facility] [id number] [place] [address] [id number] Feb, [facility] [address] [place] [address] [id number] Feb, DM neuro manif type II E11.49 ; Schizophrenia, unspecified type F20.9 and long-term 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 [facility] [id number] [place] [address] 51267- 3453 Feb, Xerosis of skin L85.3 ; Other hammer toe(s) (acquired), right foot M20.41 ; Other hammer toe(s) (acquired), left foot M20.42 and DM neuro manif type II E11.49 [facility] [employer] [id number] [place] [address] [id number] Jan, [facility] [address] [address] [place] [address] [id number] Jan, long-term 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 [facility] [address] [place] [address] [id number] Jan, DM neuro manif type II E11.49 ; 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 and Schizophrenia, unspecified type F20.9 [facility] [address] [place] [address] [phone] Dec, DM neuro manif type II E11.49 ; 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 and Schizophrenia, unspecified type F20.9 [facility] [address] [place] [address] [id number] Nov, 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 [facility] [address] [place] [address] [id number] Nov, DM neuro manif type II E11.49 [facility] [address] [id number] Nov, DM neuro manif type II E11.49 and long-term 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 [facility] [address] [place] [address] 06601- 6345 Nov, Onychomycosis B35.1 ; Other hammer toe(s) (acquired), right foot M20.41 ; Other hammer toe(s) (acquired), left foot M20.42 and DM neuro manif type II E11.49 [facility] [id number] [place] [address] [id number] October, [facility] [id number] [place] [address] [id number] October, [facility] [id number] [place] [address] [id number] Sep, [address] [place] [address] [phone] Aug, [place] [address] [address]- [address] Aug, Onychomycosis B35.1 ; Xerosis cutis L85.3 and DM neuro manif type II E11.49 [address] [place] [address] [id number] Jul, [address] [place] [address] [id number] Jun, [address] [place] [address] [id number] Jun, Hyperglycemia R73.9 [address] [address] [place] [address] [id number] Jun, [address] [place] [address] [id number] Jun, [address] [id number] Jun, Hyperglycemia R73.9 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 [address] [place] [address] [id number] May, [place] [address] [phone] May, Onychomycosis B35.1 ; 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 [address] [id number] [id number] Mar, [address] [place] [address] [id number] Mar, long-term 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 [place] [address] [id number] Feb, [address] [phone] Feb, Hx of cardiac pacemaker V12.50 ; Hypertension 401.9 ; COPD (chronic obstructive pulmonary disease) 496 and History of hallucinations V11.9 IMMUNIZATIONS No Known Immunizations SOCIAL HISTORY Never Assessed REASON FOR VISIT Routine Visit PLAN OF CARE Activity Details Follow Up 2 Months Reason: VITAL SIGNS MEDICATIONS Medication Instructions Dosage Frequency Start Date End Date Duration Status Levemir FlexTouch 100 UNIT/ML Subcutaneous 2 times a day. 15 u Jun, Active NovoLog Flexpen 100 UNIT/ML Subcutaneous 3 times a day with meals if blood sugar is above 140 12 units at breakfast and 8 units Active Insulin Syringe-Needle U-100 30G X 5/16 as directed Jun, Active NovoLog Flexpen 100 UNIT/ML INJECT 8 UNITS SUBCUTANEOUSLY 3 TIMES DAILY WITH MEALS... Active Namenda 5 mg Orally Once a day, please voucher this medication 1 tablet Active Metformin HCl 500 MG Orally Twice a day 1 tablet after meals 12h Mar, 30 day(s) Active Eliquis 2.5 MG Orally 2 times a day 12h Active Ipratropium-Albuterol 0.5-2.5 (3) MG/3ML Inhalation every 6 hrs while awke 3 ml October, 2 days Active Donepezil HCl 5 mg Orally Once a day for 4 weeks and then increase to 10mg at bedtine 1 tablet at bedtime May, 30 day(s) Active Medrol 4 MG as directed October, Active RESULTS No Results PROCEDURES Procedure Date Ordered Result Body Site Minor complication (15 mins) October 17, 2016 INSTRUCTIONS MEDICATIONS ADMINISTERED No Known Medications MEDICAL [...]
--- OUTSIDE RECORDS SUMMARY | 2018-05-30 14:15 | XMS REPORT ---
Author Author KELSIE SHAW [facility] Address [address] [place] [address] Care Team Providers Care Molded Candles Wicker Name Role Phone KELSIE SHAW Unavailable PROBLEMS Type Condition ICD9-CM Code KAX38-KC Code Onset Dates Condition Status SNOMED Code Problem Schizophrenia, unspecified type F20.9 Active 59244062 Problem Essential hypertension I10 Active 32817484 Problem History of pulmonary embolus (PE) Z86.711 Active 856823451 Problem Diabetes type 2, controlled E11.9 Active 53470381 Problem intermediate 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 Active 075305859 Problem DM neuro manif type II E11.49 Active 89402284 Problem Other chronic pain G89.29 Active 98971454 Problem Anemia, iron deficiency D50.9 Active 89142262 Problem Dementia without behavioral disturbance, unspecified dementia type F03.90 Active 61243316 Problem Chronic obstructive pulmonary disease, unspecified COPD type J44.9 Active 55218432 Problem Insomnia, unspecified type G47.00 Active 854241749 Problem Anxiety F41.9 Active 01829671 ALLERGIES No Information ENCOUNTERS Encounter Location Date Diagnosis [facility] [address] [place] [id number] Jan, Low back pain M54.5 ; Other chronic pain G89.29 ; Diabetes type 2, controlled E11.9 ; Anemia, iron deficiency D50.9 ; Essential hypertension I10 and 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 Via [facility] [address] [place] [id number] Nov, Insomnia, unspecified type G47.00 [facility] [id number] [address] Nov, DM neuro manif type II E11.49 [facility] [id number] [address] October, [place] [id number] [address] October, [facility] [address] [place] [id number] October, Anxiety F41.9 [place] [address], [place] [address] October, [place] [id number] [place] [address]74- [address]196 Sep, [facility] [address] [place] [id number] Sep, Bronchitis J40 and Cough R05 [place] [address] [place] [address]34- 6938 Aug, [facility] [address] [place] [id number] Aug, Nausea R11.0 and Weakness R53.1 [facility] [address] [place] [id number] Jun, Diabetes type 2, controlled E11.9 and intermediate 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 [place] [address] [place] [address] 97932- 3401 Mar, [place] [address] [place] [address] 88783- 5932 Mar, [facility] [address] [place] [id number] Mar, Dementia without behavioral disturbance, unspecified dementia type F03.90 and Diabetes type 2, controlled E11.9 [place] [address] [place] [address] 25413- 9222 Jan, [facility] [address] [place] [id number] Jan, Diabetes type 2, controlled E11.9 ; Chronic obstructive pulmonary disease, unspecified COPD type J44.9 and Essential hypertension I10 [place] [id number] [place] [address] 51939- 5666 Nov, [facility] [address] [place] [address] Nov, Chronic obstructive pulmonary disease, unspecified COPD type J44.9 and Diabetes type 2, controlled E11.9 [facility] [address] [place] [id number] October, Diabetes type 2, controlled E11.9 and Essential hypertension I10 [facility] [id number] [place] [id number] October, Cough R05 [facility] [address] [place] [id number] Aug, Acute nasopharyngitis J00 [facility] [address] [place] [address] Jun, Diabetes type 2, controlled E11.9 ; Schizophrenia, unspecified type F20.9 and History of pulmonary embolus (PE) Z86.711 [facility] [address] [place] [address] 31432- 4107 May, [facility] [address] [place] [address] 57080- 8212 May, [facility] [address] [place] [address] 33979- 9727 Mar, [facility] [address] [place] [id number] Mar, Diabetes type 2, controlled E11.9 ; History of pulmonary embolus (PE) Z86.711 and Schizophrenia, unspecified type F20.9 [facility] [address], [place] [address] Mar, [facility] [address] [place] [address] 27397- 8621 Mar, [address] [place] [address] [phone] Mar, CAP (community acquired pneumonia) J18.9 and 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 [id number] [place] [address] [phone] Jan, [facility] [address] [address] [id number] [place] [address] [phone] Jan, intermediate 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 [place] [address] [id number] Jan, DM neuro manif type II E11.49 ; intermediate 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 and Schizophrenia, unspecified type F20.9 [facility] [address] [place] [address] [phone] Dec, DM neuro manif type II E11.49 ; intermediate 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 and Schizophrenia, unspecified type F20.9 [facility] [address] [place] [address] [phone] Nov, intermediate 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 [facility] [address] [address] Nov, DM neuro manif type II E11.49 [facility] [id number] [place] [address] [phone] Nov, DM neuro manif type II E11.49 and intermediate 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 [facility] [id number] [address] Nov, Onychomycosis B35.1 ; Other hammer toe(s) (acquired), right foot M20.41 ; Other hammer toe(s) (acquired), left foot M20.42 and DM neuro manif type II E11.49 [place] [place] [address] [id number] October, [place] [address] [place] [address] [phone] October, [place] [address] [address] [place] [address] [phone] Sep, [place] [address] [place] [address] [id number] Aug, [place] [address] [id number] Aug, Onychomycosis B35.1 ; Xerosis cutis L85.3 and DM neuro manif type II E11.49 [place] [address] [place] [address] [id number] Jul, [place] [address] [place] [address] [phone] Jun, [place] [address] [place] [address] [phone] Jun, Hyperglycemia R73.9 [place] [address] [place] [address] [phone] Jun, [place] [address] [place] [address] [id number] Jun, [place] [address] [place] [address] [phone] Jun, Hyperglycemia R73.9 and 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 [place] [address] [place] [address] [id number] May, [place] [address] [address] May, Onychomycosis B35.1 ; 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 and Xerosis cutis L85.3 [place] [address] [place] [phone] Apr, 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 [id number] [id number] Mar, [address] [id number] Mar, intermediate 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 [id number] [phone] Mar, Encounter for immunization Z23 and Diabetes type 2, controlled E11.9 [facility] [address] [id number] [id number] Mar, [address] [id number] Mar, 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
--- OUTSIDE RECORDS SUMMARY | 2018-05-30 14:15 | XMS REPORT ---
Author Author KELSIE SHAW [facility] Address [address] [place] [address] Care Team Providers Care Vocational Adviser Name Role Phone KELSIE SHAW Unavailable PROBLEMS Type Condition ICD9-CM Code FIM40-IN Code Onset Dates Condition Status SNOMED Code Problem Schizophrenia, unspecified type F20.9 Active 77213903 Problem Essential hypertension I10 Active 87080330 Problem History of pulmonary embolus (PE) Z86.711 Active 155467161 Problem Diabetes type 2, controlled E11.9 Active 17283924 Problem residential 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 Active 689171821 Problem DM neuro manif type II E11.49 Active 11017397 Problem Other chronic pain G89.29 Active 02294294 Problem Anemia, iron deficiency D50.9 Active 32876391 Problem Dementia without behavioral disturbance, unspecified dementia type F03.90 Active 37562304 Problem Chronic obstructive pulmonary disease, unspecified COPD type J44.9 Active 47679529 Problem Insomnia, unspecified type G47.00 Active 445617172 Problem Anxiety F41.9 Active 73348184 ALLERGIES No Information ENCOUNTERS Encounter Location Date Diagnosis Via [facility] [address] [place] [id number] Jan, Low back pain M54.5 ; Other chronic pain G89.29 ; Diabetes type 2, controlled E11.9 ; Anemia, iron deficiency D50.9 ; Essential hypertension I10 and 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 [facility] [address] [place] [id number] Nov, Insomnia, unspecified type G47.00 [facility] [id number], [place] [address] Nov, DM neuro manif type II E11.49 [facility] [id number], [place] [address] October, [place] [id number], [place] [address] October, [facility] [address] [place] [id number] October, Anxiety F41.9 [place] [address], [place] [address] October, [place] [id number] [place] [address] 55542- 0243 Sep, [facility] [address] [place] [id number] Sep, Bronchitis J40 and Cough R05 [place] [address] [place] [address] 76665- 9772 Aug, [facility] [address] [place] [id number] Aug, Nausea R11.0 and Weakness R53.1 [facility] [address] [place] [id number] Jun, Diabetes type 2, controlled E11.9 and residential 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 [place] [address] [place] [address] 68670- 3020 Mar, [place] [address] [place] [address] 44198- 4932 Mar, [facility] [address] [place] [id number] Mar, Dementia without behavioral disturbance, unspecified dementia type F03.90 and Diabetes type 2, controlled E11.9 [place] [address] [place] [address] 55386- 0373 Jan, [facility] [address] [place] [id number] Jan, Diabetes type 2, controlled E11.9 ; Chronic obstructive pulmonary disease, unspecified COPD type J44.9 and Essential hypertension I10 [place] [id number] [place] [address] 61613- 6613 Nov, [facility] [address] [place] [address] Nov, Chronic obstructive pulmonary disease, unspecified COPD type J44.9 and Diabetes type 2, controlled E11.9 [facility] [address] [place] [id number] October, Diabetes type 2, controlled E11.9 and Essential hypertension I10 [facility] [id number] [place] [address] [id number] October, Cough R05 [facility] [address] [place] [id number] Aug, Acute nasopharyngitis J00 [facility] [address] [place] [address] Jun, Diabetes type 2, controlled E11.9 ; Schizophrenia, unspecified type F20.9 and History of pulmonary embolus (PE) Z86.711 [facility] [address] [place] [address] 63905- 0459 May, [facility] [address] [place] [address] 83354- 7318 May, [facility] [address] [place] [address] 57043- 9780 Mar, [facility] [address] [place] [address] Mar, Diabetes type 2, controlled E11.9 ; History of pulmonary embolus (PE) Z86.711 and Schizophrenia, unspecified type F20.9 [facility] [address], [place] [address]- 12[address] Mar, [facility] [address] [place] [address] 76642- 9307 Mar, [address] [place] [address] [id number] Mar, CAP (community acquired pneumonia) J18.9 and 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 [place] [address] [id number] Feb, [facility] [id number] [place] [id number] Feb, [facility] [address] [place] [address] [id number] Feb, DM neuro manif type II E11.49 ; Schizophrenia, unspecified type F20.9 and 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 [facility] [address] [address] Feb, Xerosis of skin L85.3 ; Other hammer toe(s) (acquired), right foot M20.41 ; Other hammer toe(s) (acquired), left foot M20.42 and DM neuro manif type II E11.49 [facility] [id number] [place] [address] [id number] Jan, [facility] [address] [place] [address] [id number] Jan, residential 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 [place] [address] [id number] Jan, DM neuro manif type II E11.49 ; residential 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 and Schizophrenia, unspecified type F20.9 [facility] [address] [place] [address] [id number] Dec, DM neuro manif type II E11.49 ; residential 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 and Schizophrenia, unspecified type F20.9 [facility] [address] [place] [address] [id number] Nov, residential 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 [facility] [address] [id number] Nov, DM neuro manif type II E11.49 [facility] [address] [place] [address] [id number] Nov, DM neuro manif type II E11.49 and residential 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 [facility] [id number] [address] Nov, Onychomycosis B35.1 ; Other hammer toe(s) (acquired), right foot M20.41 ; Other hammer toe(s) (acquired), left foot M20.42 and DM neuro manif type II E11.49 [address] [place] [address] [id number] October, [place] [address] [place] [address] [phone] October, [place] [address] [place] [address] [id number] Sep, [address] [address] [place] [address] [id number] Aug, [place] [address] [id number]- 0662 Aug, Onychomycosis B35.1 ; Xerosis cutis L85.3 and DM neuro manif type II E11.49 [place] [address] [place] [address] [id number] Jul, [place] [address] [place] [address] [id number] Jun, [place] [address] [place] [address] [phone] Jun, Hyperglycemia R73.9 [place] [address] [place] [address] [id number] Jun, [place] [address] [place] [address] [id number] Jun, [place] [address] [place] [address] [id number] Jun, Hyperglycemia R73.9 and 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 [place] [address] [place] [address] [id number] May, [place] [address] [id number]- 3971 May, Onychomycosis B35.1 ; 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 and Xerosis cutis L85.3 [place] [address] [id number] Apr, 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 [place] [id number] [id number] Mar, [address] [id number] Mar, residential 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 [address] [address] Mar, Diabetes type 2, controlled E11.9 and Encounter for immunization Z23 [address] [id number] [id number] Mar, [address] [id number] Mar, 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 [address] [id number] Feb, [address] [id number] Feb, Hx of cardiac pacemaker V12.50 ; Hypertension 401.9 ; COPD (chronic obstructive pulmonary disease) 496 and History of hallucinations V11.9 IMMUNIZATIONS No Known Immunizations SOCIAL HISTORY Never Assessed REASON FOR VISIT Routine visit PLAN OF CARE Activity Details Follow Up prn Reason: VITAL SIGNS MEDICATIONS Medication Instructions Dosage Frequency Start Date End Date Duration Status Tramadol HCl 50 mg Orally 2 times a day 1 tablet as needed 12h Jan, Active RESULTS No Results PROCEDURES Procedure Date Ordered Result Body Site Minor complication (15 mins) Jan 23, 2018 INSTRUCTIONS MEDICATIONS ADMINISTERED No Known Medications [...]
--- OUTSIDE RECORDS SUMMARY | 2018-05-30 14:15 | XMS REPORT ---
Author Author AARON RAMOS [facility] Address [address] [place] [address] Care Team Providers Care Crap Shooter Name Role Phone AARON RAMOS Unavailable PROBLEMS Type Condition ICD9-CM Code QLQ98-FN Code Onset Dates Condition Status SNOMED Code Problem Schizophrenia, unspecified type F20.9 Active 72922992 Problem Essential hypertension I10 Active 45005521 Problem History of pulmonary embolus (PE) Z86.711 Active 150556311 Problem Diabetes type 2, controlled E11.9 Active 62163314 Problem retirement 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 Active 264315208 Problem DM neuro manif type II E11.49 Active 06776683 Problem Other chronic pain G89.29 Active 65399909 Problem Anemia, iron deficiency D50.9 Active 24162562 Problem Dementia without behavioral disturbance, unspecified dementia type F03.90 Active 77812052 Problem Chronic obstructive pulmonary disease, unspecified COPD type J44.9 Active 09121316 Problem Insomnia, unspecified type G47.00 Active 659762090 Problem Anxiety F41.9 Active 97265266 ALLERGIES No Information ENCOUNTERS Encounter Location Date Diagnosis Via [facility] [address] [place] [id number] Jan, Low back pain M54.5 ; Other chronic pain G89.29 ; Diabetes type 2, controlled E11.9 ; Anemia, iron deficiency D50.9 ; Essential hypertension I10 and 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 [facility] [address] [place] [id number] Nov, Insomnia, unspecified type G47.00 [facility] [id number] [address] Nov, DM neuro manif type II E11.49 [facility] [id number] [address] October, [facility] [id number] [address] October, Via [facility] [address] [place] [id number] October, Anxiety F41.9 [address] [address] [address] October, [place] [address] [place] [address]76[address] Sep, Via [facility] [address] [place] [id number] Sep, Bronchitis J40 and Cough R05 [place] [address] [place] [address] 29387- 9809 Aug, Via [facility] [address] [place] [id number] Aug, Nausea R11.0 and Weakness R53.1 [facility] [address] [place] [id number] Jun, Diabetes type 2, controlled E11.9 and retirement 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 [place] [address] [place] [address] 31043- 3798 Mar, [place] [address] [place] [address] 96976- 8456 Mar, Via [facility] [address] [place] [id number] Mar, Dementia without behavioral disturbance, unspecified dementia type F03.90 and Diabetes type 2, controlled E11.9 [place] [id number] [address] Jan, Via [facility] [address] [place] [id number] Jan, Diabetes type 2, controlled E11.9 ; Chronic obstructive pulmonary disease, unspecified COPD type J44.9 and Essential hypertension I10 [place] [address] [place] [address] 58244- 0881 Nov, Via [facility] [address] [place] [id number] Nov, Chronic obstructive pulmonary disease, unspecified COPD type J44.9 and Diabetes type 2, controlled E11.9 Via [facility] [address] [place] [id number] October, Diabetes type 2, controlled E11.9 and Essential hypertension I10 [facility] [id number] [place] [address] [id number] October, Cough R05 [facility] [address] [place] [id number] Aug, Acute nasopharyngitis J00 [facility] [address] [place] [id number] Jun, Diabetes type 2, controlled E11.9 ; Schizophrenia, unspecified type F20.9 and History of pulmonary embolus (PE) Z86.711 [facility] [address] [place] [address] 39723- 2341 May, [facility] [id number] [place] [phone]- [address] May, [facility] [id number] [place] [address] 57533- 1554 Mar, Via [facility] [address] [place] [id number] Mar, Diabetes type 2, controlled E11.9 ; History of pulmonary embolus (PE) Z86.711 and Schizophrenia, unspecified type F20.9 [facility] [address] [place] [address] 16283- 3852 Mar, [facility] [address] [place] [address] 41488- 3712 Mar, [address] [place] [address] [id number] Mar, CAP (community acquired pneumonia) J18.9 and retirement 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 [facility] [id number] [place] [address] [phone] Feb, [facility] [id number] [place] [address] [id number] Feb, [facility] [id number] [place] [address] [id number] Feb, DM neuro manif type II E11.49 ; Schizophrenia, unspecified type F20.9 and retirement 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 [facility] [id number] [place] [address] 50870- 0443 Feb, Xerosis of skin L85.3 ; Other hammer toe(s) (acquired), right foot M20.41 ; Other hammer toe(s) (acquired), left foot M20.42 and DM neuro manif type II E11.49 [facility] [id number] [place] [address] [id number] Jan, [facility] [address] [place] [address] [phone] Jan, retirement 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 [facility] [address] [place] [address] [id number] Jan, DM neuro manif type II E11.49 ; 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 and Schizophrenia, unspecified type F20.9 [facility] [address] [place] [address] [phone] Dec, DM neuro manif type II E11.49 ; 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 and Schizophrenia, unspecified type F20.9 [facility] [address] [place] [address] [id number] Nov, 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 [facility] [address] [place] [address] [phone] Nov, DM neuro manif type II E11.49 [facility] [address] [id number] Nov, DM neuro manif type II E11.49 and retirement 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 [facility] [address] [place] [address] 30130- 1768 Nov, Onychomycosis B35.1 ; Other hammer toe(s) (acquired), right foot M20.41 ; Other hammer toe(s) (acquired), left foot M20.42 and DM neuro manif type II E11.49 [facility] [id number] [place] [address] [id number] October, [facility] [id number] [place] [address] [phone] October, [facility] [id number] [place] [address] [id number] Sep, [id number] [place] [address] [id number] Aug, [place] [address] [address] Aug, Onychomycosis B35.1 ; Xerosis cutis L85.3 and DM neuro manif type II E11.49 [id number] [place] [address] [id number] Jul, [id number] [place] [address] [phone] Jun, [address] [place] [address] [phone] Jun, Hyperglycemia R73.9 [address] [place] [address] [id number] Jun, [address] [place] [address] [phone] Jun, [address] [id number] Jun, Hyperglycemia R73.9 and 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 [id number] [place] [address] [id number] May, [place] [address] [id number]- [address] May, Onychomycosis B35.1 ; 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 and Xerosis cutis L85.[address] [id number] Apr, retirement 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 [place] [address] [id number] [phone] Mar, [facility] [id number] [id number] Mar, 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 [address] [id number] Mar, Diabetes type 2, controlled E11.9 and Encounter for immunization Z23 [facility] [address] [id number] [id number] Mar, [address] [place] [address] [id number] Mar, retirement 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 [place] [address] [id number] Feb, [address] [place] [address] [id number] Feb, Hx of cardiac pacemaker V12.50 ; Hypertension 401.9 ; COPD (chronic obstructive pulmonary disease) 496 and History of hallucinations V11.9 IMMUNIZATIONS No Known Immunizations SOCIAL HISTORY Never Assessed REASON FOR VISIT Increased shortness of breath PLAN OF CARE Activity Details Follow Up 2 Months Reason: VITAL SIGNS MEDICATIONS Unknown Medications RESULTS No Results PROCEDURES Procedure Date Ordered Result Body Site Minor complication (15 mins) November 14, 2016 INSTRUCTIONS MEDICATIONS ADMINISTERED No Known Medications [...]
--- OUTSIDE RECORDS SUMMARY | 2018-05-30 14:16 | XMS REPORT ---
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 Active 235043393 Problem Schizophrenia, unspecified type F20.9 Active 00378560 Problem DM neuro manif type II E11.49 Active 25253185 Problem Diabetes type 2, controlled E11.9 Active 64625106 Problem Insomnia, unspecified type G47.00 Active 529048487 Problem Anxiety F41.9 Active 80201157 Problem Essential hypertension I10 Active 56981333 Problem History of pulmonary embolus (PE) Z86.711 Active 559944423 Problem Dementia without behavioral disturbance, unspecified dementia type F03.90 Active 91318422 Problem Chronic obstructive pulmonary disease, unspecified COPD type J44.9 Active 84351774 ALLERGIES No Information ENCOUNTERS Encounter Location Date Diagnosis Via [facility] [employer] [facility] [address] [place] [id number] Nov, Insomnia, unspecified type G47.00 [place] [id number] [address] Nov, DM neuro manif type II E11.49 [facility] [id number] [place] [address] 35640- 3849 October, [address] [id number] [place] [address] 53271- 1774 October, Via [facility] [employer] [address] [place] [id number] October, Anxiety F41.9 [place] [id number] [address] October, [facility] [address] [facility] [id number] [address] Sep, Via [place] [employer] [facility] [address] [place] [id number] Sep, Bronchitis J40 and Cough R05 [place] [address] [facility] [id number] [address] Aug, Via [facility] [address] [place] [id number] Aug, Nausea R11.0 and Weakness R53.1 Via [facility] [employer] [address] [place] [id number] Jun, Diabetes type 2, controlled E11.9 and 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 [place] [address] [address] [address] Mar, [place] [address] [address] [place] [address] 065556- 0030 Mar, [facility] [place] [facility] [address] [place] [id number] Mar, Dementia without behavioral disturbance, unspecified dementia type F03.90 and Diabetes type 2, controlled E11.9 [place] [id number] [address] Jan, [facility] [employer] [address] [place] [id number] Jan, Diabetes type 2, controlled E11.9 ; Chronic obstructive pulmonary disease, unspecified COPD type J44.9 and Essential hypertension I10 [place] [address] [facility] [id number], [place] [address] Nov, Via [facility] [address] [place] [address] Nov, Chronic obstructive pulmonary disease, unspecified COPD type J44.9 and Diabetes type 2, controlled E11.9 [facility] [employer] [address] [place] [id number] October, Diabetes type 2, controlled E11.9 and Essential hypertension I10 [facility] [address] [id number] [address] October, Cough R05 Via [facility] [address] [place] [id number] Aug, Acute nasopharyngitis J00 Via [facility] [address] [place] [address] Jun, Diabetes type 2, controlled E11.9 ; Schizophrenia, unspecified type F20.9 and History of pulmonary embolus (PE) Z86.711 [facility] [address], [place] [address] May, [facility] [id number] [place] [address] 11634- 4799 May, [facility] [address] [place] [address] 18922- 1429 Mar, Via [facility] [address] [place] [id number] Mar, Diabetes type 2, controlled E11.9 ; History of pulmonary embolus (PE) Z86.711 and Schizophrenia, unspecified type F20.9 [facility] [address] [address] Mar, [facility] [address], [place] [address] Mar, [address] [id number] Mar, CAP (community acquired pneumonia) J18.9 and 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 [id number] Feb, [address] [place] [address] [phone] Feb, [address] [place] [address] [phone] Feb, DM neuro manif type II E11.49 ; Schizophrenia, unspecified type F20.9 and snf 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 [place] [address] [place] [address] Feb, Xerosis of skin L85.3 ; Other hammer toe(s) (acquired), right foot M20.41 ; Other hammer toe(s) (acquired), left foot M20.42 and DM neuro manif type II E11.49 [facility] [id number] [place] [address] [phone] Jan, [facility] [id number] [place] [address] [phone] Jan, 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 [facility] [address] [place] [address] [phone] Jan, DM neuro manif type II E11.49 ; 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 and Schizophrenia, unspecified type F20.9 [facility] [address] [place] [address] [phone] Dec, DM neuro manif type II E11.49 ; 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 and Schizophrenia, unspecified type F20.9 [facility] [address] [place] [address] [id number] Nov, 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 [facility] [address] [place] [address] [id number] Nov, DM neuro manif type II E11.49 [facility] [id number] [place] [address] [phone] Nov, DM neuro manif type II E11.49 and 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 [facility] [address] [address] Nov, Onychomycosis B35.1 ; Other hammer toe(s) (acquired), right foot M20.41 ; Other hammer toe(s) (acquired), left foot M20.42 and DM neuro manif type II E11.49 [facility] [id number] [phone] October, [facility] [address] [place] [address] [phone] October, [facility] [id number] [address] Sep, [facility] [address] [place] [address] [id number] Aug, [place] [id number] [place] [address] 80398 2541 Aug, Onychomycosis B35.1 ; Xerosis cutis L85.3 and DM neuro manif type II E11.49 [facility] [address] [place] [address] [phone] Jul, [facility] [address] [place] [address] [phone] Jun, [facility] [address] [place] [address] [phone] Jun, Hyperglycemia R73.9 [facility] [address] [place] [address] [id number] Jun, [facility] [address] [place] [address] [phone] Jun, [facility] [address] [place] [address] [phone] Jun, Hyperglycemia R73.9 and 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 [facility] [id number] [place] [address] [id number] May, [place] [address] [place] [address] 96962- 5135 May, Onychomycosis B35.1 ; 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 and Xerosis cutis L85.3 [facility] [id number] [place] [address] [phone] Apr, 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 [facility] [id number] [place] [address] [id number] Mar, [facility] [address] [place] [address] [phone] Mar, snf 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 [facility] [address] [id number] [place] [phone] Mar, Diabetes type 2, controlled E11.9 and Encounter for immunization Z23 [facility] [address] [id number] [place] [phone] Mar, [address] [id number] [id number] Mar, 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
--- OUTSIDE RECORDS SUMMARY | 2018-05-30 14:16 | XMS REPORT ---
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 235006895 Problem Schizophrenia, unspecified type F20.9 Active 58565885 Problem DM neuro manif type II E11.49 Active 32425705 Problem Diabetes type 2, controlled E11.9 Active 46651131 Problem Insomnia, unspecified type G47.00 Active 030912929 Problem Anxiety F41.9 Active 75526369 Problem Essential hypertension I10 Active 22365957 Problem History of pulmonary embolus (PE) Z86.711 Active 802409181 Problem Dementia without behavioral disturbance, unspecified dementia type F03.90 Active 51649622 Problem Chronic obstructive pulmonary disease, unspecified COPD type J44.9 Active 54253630 ALLERGIES No Information ENCOUNTERS Encounter Location Date Diagnosis Via Prisca [employer] [address] [place] [id number] Nov, Insomnia, unspecified type G47.00 [place] [address] [id number] [address] Nov, DM neuro manif type II E11.49 [facility] [address] [facility] [id number] [place] [address]34[address]33 October, [place] [id number] [place] [address]253- [address]32 October, Via [facility] [employer] [address] [place] [id number] October, Anxiety F41.9 [place] [address] [id number] [address] October, [facility] [address] [facility] [id number], [place] [address] Sep, Via [employer] [address] [id number] Sep, Bronchitis J40 and Cough R05 [place] [address] [facility] [id number] [address] Aug, Via [employer] [address] [id number] Aug, Nausea R11.0 and Weakness R53.1 Via Prisca [facility] [employer] [address] [place] [id number] Jun, Diabetes type 2, controlled E11.9 and 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 [place] [address]00565[address], [place] [address] Mar, [place] [address] [place] [address] 723037[address]84 Mar, Via [employer] [address] [place] [id number] Mar, Dementia without behavioral disturbance, unspecified dementia type F03.90 and Diabetes type 2, controlled E11.9 [place] [address] [id number] [address] Jan, Via Prisca [facility] [employer] [address] [id number] Jan, Diabetes type 2, controlled E11.9 ; Chronic obstructive pulmonary disease, unspecified COPD type J44.9 and Essential hypertension I10 [place] [address] [facility] [id number], [place] [address] Nov, Via [employer] [address] [place] [id number] Nov, Chronic obstructive pulmonary disease, unspecified COPD type J44.9 and Diabetes type 2, controlled E11.9 Via Prisca [facility] [employer] [address] [id number] October, Diabetes type 2, controlled E11.9 and Essential hypertension I10 [facility] [address] [id number] [id number] October, Cough R05 Via [facility] [address] [place] [id number] Aug, Acute nasopharyngitis J00 [address] [facility] [address] [place] [id number] Jun, Diabetes type 2, controlled E11.9 ; Schizophrenia, unspecified type F20.9 and History of pulmonary embolus (PE) Z86.711 [facility] [address], [place] [address] May, [facility] [id number] [place] [address] 82031- 1080 May, [facility] [address] [place] [address] 89715- 1689 Mar, Via [facility] [address] [place] [id number] Mar, Diabetes type 2, controlled E11.9 ; History of pulmonary embolus (PE) Z86.711 and Schizophrenia, unspecified type F20.9 [facility] [address], [place] [address] Mar, [facility] [address], [place] [address] Mar, [address] [id number] Mar, CAP (community acquired pneumonia) J18.9 and 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 [address]100[place] [id number] Feb, [address] [place] [address] [id number] Feb, [place] [id number] [place] [address] [id number] Feb, DM neuro manif type II E11.49 ; Schizophrenia, unspecified type F20.9 and intermediate 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 [place] [address] 1403465100[place] [address] Feb, Xerosis of skin L85.3 ; Other hammer toe(s) (acquired), right foot M20.41 ; Other hammer toe(s) (acquired), left foot M20.42 and DM neuro manif type II E11.49 [facility] [id number] [place] [address] [id number] Jan, [facility] [id number] [place] [address] [phone] Jan, 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 [facility] [id number] [place] [address] [phone] Jan, DM neuro manif type II E11.49 ; 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 and Schizophrenia, unspecified type F20.9 [facility] [id number] [place] [address] [phone] Dec, DM neuro manif type II E11.49 ; 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 and Schizophrenia, unspecified type F20.9 [facility] [id number] [place] [address] [id number] Nov, 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 [facility] [id number] [place] [address] [id number] Nov, DM neuro manif type II E11.49 [facility] [id number] [place] [address] [phone] Nov, DM neuro manif type II E11.49 and 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 [facility] [address] [address] Nov, Onychomycosis B35.1 ; Other hammer toe(s) (acquired), right foot M20.41 ; Other hammer toe(s) (acquired), left foot M20.42 and DM neuro manif type II E11.49 [facility] [id number][place] [id number] October, [facility] [id number] [place] [address] [id number] October, [facility] [id number][place] [id number] Sep, [facility] [id number] [place] [address] [phone] Aug, [place] [id number] [place] [phone] Aug, Onychomycosis B35.1 ; Xerosis cutis L85.3 and DM neuro manif type II E11.49 [facility] [id number] [place] [address] [id number] Jul, [facility] [id number] [place] [address] [phone] Jun, [facility] [id number] [place] [address] [phone] Jun, Hyperglycemia R73.9 [facility] [id number] [place] [address] [id number] Jun, [facility] [id number] [place] [address] [phone] Jun, [facility] [id number] [place] [address] [id number] Jun, Hyperglycemia R73.9 and 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 [facility] [id number] [place] [address] [phone] May, [place] [address] [place] [address] May, Onychomycosis B35.1 ; 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 and Xerosis cutis L85.3 [facility] [id number] [place] [address] [phone] Apr, 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 [facility] [id number] [place] [address] [id number] Mar, [facility] [id number] [place] [address] [id number] Mar, intermediate 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 [facility] [address] [id number] [place] [id number] Mar, Diabetes type 2, controlled E11.9 and Encounter for immunization Z23 [facility] [address] [id number] [place] [id number] Mar, [address] [id number][place] [phone] Mar, 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 [id number] [phone] Feb, [address] [id number], [place] [phone] Feb, Hx of cardiac pacemaker V12.50 ; Hypertension 401.9 ; COPD (chronic obstructive pulmonary disease) 496 and History of hallucinations V11.9 IMMUNIZATIONS No Known Immunizations SOCIAL HISTORY Never Assessed REASON FOR VISIT Hospital Discharge PLAN OF CARE VITAL SIGNS MEDICATIONS No [...]
--- OUTSIDE RECORDS SUMMARY | 2018-05-30 14:16 | XMS REPORT ---
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 Active 56883277 Problem Diabetes type 2, controlled E11.9 Active 18052694 Problem Insomnia, unspecified type G47.00 Active 178945436 Problem Anxiety F41.9 Active 13799401 Problem Essential hypertension I10 Active 15188103 Problem History of pulmonary embolus (PE) Z86.711 Active 053208674 Problem Dementia without behavioral disturbance, unspecified dementia type F03.90 Active 93438028 Problem Chronic obstructive pulmonary disease, unspecified COPD type J44.9 Active 29253907 ALLERGIES No Information ENCOUNTERS Encounter Location Date Diagnosis Via Prisca [employer] [address] [place] [id number] Nov, Insomnia, unspecified type G47.00 [place] [address] [id number] [address] Nov, DM neuro manif type II E11.49 [facility] [id number] [place] [address]30[address] 1308 October, [place] [id number] [place] [address] 52271- 9241 October, Via [facility] [employer] [address] [place] [id number] October, Anxiety F41.9 [place] [address] [id number] [address] October, [facility] [address] [facility] [id number] [address] Sep, Via [employer] [facility] [employer] [address] [id number] Sep, Bronchitis J40 and Cough R05 [place] [address] [facility] [id number], [place] [address] Aug, Via [facility] [address] [id number] Aug, Nausea R11.0 and Weakness R53.1 Via [facility] [address] [place] [id number] Jun, Diabetes type 2, controlled E11.9 and 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 [place] [address]005[address]100[place], [place] [address]- 5[address] Mar, [place] [address] [place] [address] 306362- [address] Mar, Via [employer] [facility] [address] [place] [id number] Mar, Dementia without behavioral disturbance, unspecified dementia type F03.90 and Diabetes type 2, controlled E11.9 [place] [address] [id number] [address] Jan, Via [facility]a [facility] [address] [id number] Jan, Diabetes type 2, controlled E11.9 ; Chronic obstructive pulmonary disease, unspecified COPD type J44.9 and Essential hypertension I10 [place] [address] [facility] [id number], [place] [address]47 Nov, Via [facility] [address] [place] [id number] Nov, Chronic obstructive pulmonary disease, unspecified COPD type J44.9 and Diabetes type 2, controlled E11.9 Via [facility] [address] [id number] October, Diabetes type 2, controlled E11.9 and Essential hypertension I10 [facility] [address] [id number], [place] [id number] October, Cough R05 Via [facility] [address] [place] [id number] Aug, Acute nasopharyngitis J00 Via [facility] [address] [place] [id number] Jun, Diabetes type 2, controlled E11.9 ; Schizophrenia, unspecified type F20.9 and History of pulmonary embolus (PE) Z86.711 [facility] [address]005[address]100[place], [place] [address]- [address] May, [facility] [id number] [place] [address] 14492- 2241 May, [facility] [address] [place] [address] 45437- 9976 Mar, Via [facility] [address] [place] [id number] Mar, Diabetes type 2, controlled E11.9 ; History of pulmonary embolus (PE) Z86.711 and Schizophrenia, unspecified type F20.9 [facility] [address]100[place], [place] [address]- 0026 Mar, [facility] [address]100[place], [place] [address]- [address] Mar, [address]00565100[place] [id number] Mar, CAP (community acquired pneumonia) J18.9 and 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 [address]00565100[place] [id number] Feb, [address] [place] [address] [phone] Feb, [id number] [place] [address] [phone] Feb, DM neuro manif type II E11.49 ; Schizophrenia, unspecified type F20.9 and prison 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 [place] [address] 0384465100[place] [address]- [address]36 Feb, Xerosis of skin L85.3 ; Other hammer toe(s) (acquired), right foot M20.41 ; Other hammer toe(s) (acquired), left foot M20.42 and DM neuro manif type II E11.49 [facility] [id number] [place] [address] [id number] Jan, [facility] [id number] [place] [address] [id number] Jan, 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 [facility] [id number] [place] [address] [id number] Jan, DM neuro manif type II E11.49 ; 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 and Schizophrenia, unspecified type F20.9 [facility] [id number] [place] [address] [id number] Dec, DM neuro manif type II E11.49 ; 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 and Schizophrenia, unspecified type F20.9 [facility] [id number] [place] [address] [id number] Nov, 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 [facility] [id number] [place] [address] [id number] Nov, DM neuro manif type II E11.49 [facility] [place] [id number] [place] [address] [id number] Nov, DM neuro manif type II E11.49 and 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 [facility] [address], [place] [address] Nov, Onychomycosis B35.1 ; Other hammer toe(s) (acquired), right foot M20.41 ; Other hammer toe(s) (acquired), left foot M20.42 and DM neuro manif type II E11.49 [facility] [id number] [place] [id number] October, [facility] [id number] [place] [address] [phone] October, [facility] [id number] [place] [id number] Sep, [facility] [id number] [place] [address] [id number] Aug, [place] [id number] [place] [address]134 2545 Aug, Onychomycosis B35.1 ; Xerosis cutis L85.3 and DM neuro manif type II E11.49 [facility] [id number] [place] [address] [phone] Jul, [facility] [id number] [place] [address] [id number] Jun, [facility] [id number] [place] [address] [id number] Jun, Hyperglycemia R73.9 [facility] [id number] [place] [address] [phone] Jun, [facility] [id number] [place] [address] [id number] Jun, [facility] [id number] [place] [address] [phone] Jun, Hyperglycemia R73.9 and 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 [facility] [id number] [place] [address] [id number] May, [place] [address] [place] [address] 84143- 7889 May, Onychomycosis B35.1 ; 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 and Xerosis cutis L85.3 [facility] [id number] [place] [address] [id number] Apr, 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 [facility] [id number] [place] [address] [phone] Mar, [facility] [id number] [place] [address] [id number] Mar, prison 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 [facility] [address] [id number] [place] [id number] Mar, Encounter for immunization Z23 and Diabetes type 2, controlled E11.9 [facility] [address] [id number] [place] [id number] Mar, [address] [id number] [place]KE[place] [id number] Mar, 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 [id number] [place]KE[place] [id number] Feb, [address] [id number] LAKE[place] [id number] Feb, Hx of cardiac pacemaker V12.50 ; Hypertension 401.9 ; COPD (chronic obstructive pulmonary disease) 496 and History of hallucinations V11.9 IMMUNIZATIONS No Known Immunizations SOCIAL HISTORY Never Assessed REASON FOR VISIT [facility] hosp follow up PLAN OF CARE Activity Details Follow Up prn Reason: VITAL SIGNS MEDICATIONS Medication Instructions Dosage Frequency Start Date End Date Duration Status Atorvastatin Calcium 10 MG Orally Once a day 1 tablet 24h Active Levemir FlexTouch 100 UNIT/ML Subcutaneous 2 times a day. 15 u 13 Jun, 2015 Active Tylenol 325 MG Orally every 4 hrs 2 tablets as needed 4h Active Symbicort 160-4.5 MCG/ACT Inhalation Twice a day 2 puffs 12h Nov, 30 days Active Ondansetron 8 MG Orally three times per day as needed 1 tablet on the tongue and allow to dissolve Active Claritin 10 MG Orally Once a day 1 tablet 24h Active Namzaric 7-10 MG Orally Once a day 1 capsule in the evening 24h 18 Mar, 2017 30 day(s) Active Insulin Syringe-Needle U-100 30G X 5/16 as directed Jun, Active Escitalopram Oxalate 10 mg Orally Once a day 1 tablet 24h October, 30 day(s) Active Milk of Magnesia Concentrate 2400 MG/10ML Orally every 4 hrs 30ml as needed 4h Active Metformin HCl 500 mg Orally twice a day 1 tablet with a meal 12h 27 Mar, 2016 Active Lisinopril 20 MG Orally Once a day 1 tablet 24h Active Ibuprofen 200 mg Orally every 6 hrs 3 tablets as needed 6h Active NovoLog Flexpen 100 UNIT/ML Subcutaneous 3 times a day with meals 15 units Active Eliquis 2.5 MG Orally 2 times a day 12h Active Ranitidine HCl 75 MG Orally Once a day at hs 1 tablet as needed Sep, Not-Taking RESULTS No Results PROCEDURES Procedure Date Ordered Result Body Site Minor complication (15 mins) October 17, 2017 INSTRUCTIONS MEDICATIONS ADMINISTERED No Known Medications [...]
--- OUTSIDE RECORDS SUMMARY | 2018-05-30 14:16 | XMS REPORT ---
Author Author ANDREA CONDE [facility] Address [address] [place] [address] Care Team Providers Care Pulp Piler Name Role Phone ANDREA CONDE Unavailable PROBLEMS Type Condition ICD9-CM Code VUA80-DN Code Onset Dates Condition Status SNOMED Code Problem MCC 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 Active 049326451 Problem Schizophrenia, unspecified type F20.9 Active 79796239 Problem DM neuro manif type II E11.49 Active 02025781 Problem Diabetes type 2, controlled E11.9 Active 11130870 Problem Insomnia, unspecified type G47.00 Active 982198549 Problem Anxiety F41.9 Active 01272861 Problem Essential hypertension I10 Active 09171505 Problem History of pulmonary embolus (PE) Z86.711 Active 320899977 Problem Dementia without behavioral disturbance, unspecified dementia type F03.90 Active 02226962 Problem Chronic obstructive pulmonary disease, unspecified COPD type J44.9 Active 91083467 ALLERGIES No Information ENCOUNTERS Encounter Location Date Diagnosis Via [employer] [address] [place] [id number] Nov, Insomnia, unspecified type G47.00 [place] [address] [id number] [address] Nov, DM neuro manif type II E11.49 [facility] [place] [id number] [place] [address] 269[address] 58[address] October, [place] [id number] [place] [address]- [address]77 October, Via [employer] [address] [place] [id number] October, Anxiety F41.9 [facility] [place] [address] [id number], [place] [address] October, [place] [address] [facility] [id number] [address] Sep, Via [employer] [address] [place] [id number] Sep, Bronchitis J40 and Cough R05 [place] [address] 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 [place] [address], [place] [address] Mar, [place] [address] [place] [address] 48682- 5090 Mar, Via [employer] [address] [place] [id number] Mar, Dementia without behavioral disturbance, unspecified dementia type F03.90 and Diabetes type 2, controlled E11.9 [place] [id number], [place] [address] Jan, Via [employer] [address] [place] [id number] Jan, Diabetes type 2, controlled E11.9 ; Chronic obstructive pulmonary disease, unspecified COPD type J44.9 and Essential hypertension I10 [place] [id number], [place] [address] Nov, Via [employer] [address] [place] [id number] Nov, Chronic obstructive pulmonary disease, unspecified COPD type J44.9 and Diabetes type 2, controlled E11.9 [employer] [address] [place] [id number] October, Diabetes type 2, controlled E11.9 and Essential hypertension I10 [facility] [id number] [place] [address] [id number] October, Cough R05 Via [facility] [address] [place] [id number] Aug, Acute nasopharyngitis J00 [facility] [address] [place] [id number] Jun, Diabetes type 2, controlled E11.9 ; Schizophrenia, unspecified type F20.9 and History of pulmonary embolus (PE) Z86.711 [place] [address] [id number] [place] [address] 298238- 3764 May, [place] [id number] [place] [address] 465102- 8757 May, [place] [id number] [place] [address] 57777003- 8412 Mar, [facility] [address] [place] [id number] Mar, Diabetes type 2, controlled E11.9 ; History of pulmonary embolus (PE) Z86.711 and Schizophrenia, unspecified type F20.9 [place] [address] [place] [address] 37134- 0312 Mar, [place] [id number] [place] [address] 85496- 0108 Mar, [address] [place] [address] [id number] Mar, CAP (community acquired pneumonia) J18.9 and MCC 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 [facility] [id number] [place] [address] [id number] Feb, [address] [place] [address] [id number] Feb, [place] [id number] [place] [address] [id number] Feb, DM neuro manif type II E11.49 ; Schizophrenia, unspecified type F20.9 and 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 [place] [id number] [place] [address] [id number]- 0025 Feb, Xerosis of skin L85.3 ; Other hammer toe(s) (acquired), right foot M20.41 ; Other hammer toe(s) (acquired), left foot M20.42 and DM neuro manif type II E11.49 [facility] [id number] [id number] Jan, [facility] [place] [id number] [place] [address] [id number] Jan, 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 [facility] [address] [place] [address] [id number] Jan, DM neuro manif type II E11.49 ; MCC 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 and Schizophrenia, unspecified type F20.9 [address] [place] [address] [id number] Dec, DM neuro manif type II E11.49 ; MCC 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 and Schizophrenia, unspecified type F20.9 [facility] [address] [place] [address] [id number] Nov, MCC 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 [place] [address] [place] [address] [id number] Nov, DM neuro manif type II E11.49 [address] [id number] Nov, DM neuro manif type II E11.49 and 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 [facility] [place] [id number] [address] Nov, Onychomycosis B35.1 ; Other hammer toe(s) (acquired), right foot M20.41 ; Other hammer toe(s) (acquired), left foot M20.42 and DM neuro manif type II E11.49 [address] [id number] October, [place] [id number] [place] [address] [id number] October, [facility] [id number] [place] [address] [id number] Sep, [facility] [id number] [place] [address] [id number] Aug, [place] [address] [id number] [place] [address] 45483 2546 Aug, Onychomycosis B35.1 ; Xerosis cutis L85.3 and DM neuro manif type II E11.49 [facility] [place] [id number] [place] [address] [id number] Jul, [facility] [place] [id number] [place] [address] [id number] Jun, [facility] [place] [address] [id number] Jun, Hyperglycemia R73.9 [facility] [id number] [place] [address] [id number] Jun, [facility] [id number] [place] [address] [id number] Jun, [facility] [id number] [place] [address] [id number] Jun, Hyperglycemia R73.9 and MCC 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 [facility] [id number] [place] [address] [id number] May, [place] [address] [place] [address] 34333- 7396 May, Onychomycosis B35.1 ; 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 and Xerosis cutis L85.3 [facility] [place] [id number] [place] [address] [id number] Apr, MCC 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 [facility] [place] [id number] [place] [address] [id number] Mar, [facility] [place] [id number] [place] [address] [id number] Mar, 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 [address] [id number] [place] [id number] Mar, [address] [id number][place] [phone] Mar, 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 [id number][place] [phone] Feb, [address] [id number][place] [phone] Feb, Hx of cardiac pacemaker V12.50 ; Hypertension 401.9 ; COPD (chronic obstructive pulmonary disease) 496 and History of hallucinations V11.9 IMMUNIZATIONS No Known Immunizations SOCIAL HISTORY Never Assessed REASON FOR VISIT Hospital admit/DC PLAN OF CARE VITAL SIGNS MEDICATIONS Medication Instructions Dosage Frequency Start Date End Date Duration Status Ibuprofen 200 mg Orally every 6 hrs 3 tablets as needed 6h Active Insulin Syringe-Needle U-100 30G X 5/16 as directed Jun, Active Lisinopril 20 MG Orally Once a day 1 tablet 24h Active Atorvastatin Calcium 10 MG Orally Once a day 1 tablet 24h Active Milk of Magnesia Concentrate 2400 MG/10ML Orally every 4 hrs 30ml as needed 4h Active Ranitidine HCl 75 MG Orally Once a day at hs 1 tablet as needed Sep, Not-Taking Metformin HCl 500 mg Orally twice a day 1 tablet with a meal 12h 27 Mar, 2016 Active Tylenol 325 MG Orally every 4 hrs 2 tablets as needed 4h Active Ondansetron 8 MG Orally three times per day as needed 1 tablet on the tongue and allow to dissolve Active Levemir FlexTouch 100 UNIT/ML Subcutaneous 2 times a day. 15 u 13 Jun, 2015 Active Claritin 10 MG Orally Once a day 1 tablet 24h Active Symbicort 160-4.5 MCG/ACT Inhalation Twice a day 2 puffs 12h Nov, 30 days Active Eliquis 2.5 MG Orally 2 times a day 12h Active NovoLog Flexpen 100 UNIT/ML Subcutaneous 3 times a day with meals 15 units Active Namzaric 7-10 MG Orally Once a day 1 capsule in the evening 24h Mar, 30 day(s) Active RESULTS No Results PROCEDURES [...]
--- OUTSIDE RECORDS SUMMARY | 2018-05-30 14:17 | XMS REPORT ---
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 Active 873349483 Problem Schizophrenia, unspecified type F20.9 Active 37044535 Problem DM neuro manif type II E11.49 Active 73348947 Problem Diabetes type 2, controlled E11.9 Active 19614685 Problem Insomnia, unspecified type G47.00 Active 862401711 Problem Anxiety F41.9 Active 85507928 Problem Essential hypertension I10 Active 04754487 Problem History of pulmonary embolus (PE) Z86.711 Active 702354248 Problem Dementia without behavioral disturbance, unspecified dementia type F03.90 Active 02450703 Problem Chronic obstructive pulmonary disease, unspecified COPD type J44.9 Active 50031528 ALLERGIES No Information ENCOUNTERS Encounter Location Date Diagnosis Via [employer] [facility] [address] [place] [id number] Nov, Insomnia, unspecified type G47.00 [place] [address] [id number] [address]- [address] Nov, DM neuro manif type II E11.49 [facility] [id number] [place] [address] 53067- 0427 October, [place] [id number] [place] [address] 29987- 8542 October, Via [facility] [address] [place] [id number] October, Anxiety F41.9 [place] [address] [id number] [address]- 3097 October, [facility] [address] [facility] [id number] [address]- [address] Sep, Via [employer] [facility] [address] [id number] Sep, Bronchitis J40 and Cough R05 [place] [address] 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 [place] [address] [address]- 6190 Mar, [place] [address] [place] [address] 764170- 1036 Mar, Via [employer] [facility] [address] [place] [id number] Mar, Dementia without behavioral disturbance, unspecified dementia type F03.90 and Diabetes type 2, controlled E11.9 [place] [address] [id number] [address] Jan, Via [facility] [address] [id number] Jan, Diabetes type 2, controlled E11.9 ; Chronic obstructive pulmonary disease, unspecified COPD type J44.9 and Essential hypertension I10 [place] [address] [facility] [id number] [address]- [address] Nov, Via [email or web address] [address] [place] [id number] Nov, Chronic obstructive pulmonary disease, unspecified COPD type J44.9 and Diabetes type 2, controlled E11.9 Via [facility] [address] [id number] October, Diabetes type 2, controlled E11.9 and Essential hypertension I10 [facility] [address] [id number] [id number] October, Cough R05 Via [facility] [address] [place] [id number] Aug, Acute nasopharyngitis J00 Via [facility] [address] [place] [id number] Jun, Diabetes type 2, controlled E11.9 ; Schizophrenia, unspecified type F20.9 and History of pulmonary embolus (PE) Z86.711 [facility] [address], [place] [address]- 2852 May, [facility] [id number] [place] [address] 79785- 4826 May, [facility] [address] [place] [address] 77242- 8935 Mar, Via [facility] [address] [place] [id number] Mar, Diabetes type 2, controlled E11.9 ; History of pulmonary embolus (PE) Z86.711 and Schizophrenia, unspecified type F20.9 [facility] [address], [place] [address]- 7684 Mar, [facility] [address], [place] [address]- 9[address] Mar, [address] [id number] Mar, CAP (community acquired pneumonia) J18.9 and 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 [address], [place] [id number] Feb, [address] [place] [address] [id number] Feb, [id number] [place] [address] [id number] Feb, DM neuro manif type II E11.49 ; Schizophrenia, unspecified type F20.9 and assisted 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 [place] [address] [id number] [address]- 4029 Feb, Xerosis of skin L85.3 ; Other hammer toe(s) (acquired), right foot M20.41 ; Other hammer toe(s) (acquired), left foot M20.42 and DM neuro manif type II E11.49 [facility] [id number] [place] [address] [id number] Jan, [facility] [id number] [place] [address] [id number] Jan, 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 [facility] [address] [place] [address] [id number] Jan, DM neuro manif type II E11.49 ; 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 and Schizophrenia, unspecified type F20.9 [facility] [address] [place] [address] [id number] Dec, DM neuro manif type II E11.49 ; 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 and Schizophrenia, unspecified type F20.9 [facility] [id number] [place] [address] [id number] Nov, 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 [facility] [address] [place] [address] [id number] Nov, DM neuro manif type II E11.49 [facility] [id number] [place] [address] [id number] Nov, DM neuro manif type II E11.49 and 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 [facility] [address] [address] Nov, Onychomycosis B35.1 ; Other hammer toe(s) (acquired), right foot M20.41 ; Other hammer toe(s) (acquired), left foot M20.42 and DM neuro manif type II E11.49 [facility] [id number], [place] [id number] October, [facility] [address] [place] [address] [id number] October, [facility] [id number], [place] [id number] Sep, [facility] [address] [place] [address] [id number] Aug, [place] [id number] [place] [address] [phone] Aug, Onychomycosis B35.1 ; Xerosis cutis L85.3 and DM neuro manif type II E11.49 [facility] [address] [place] [address] [id number] Jul, [facility] [id number] [place] [address] [id number] Jun, [facility] [id number] [place] [address] [id number] Jun, Hyperglycemia R73.9 [facility] [address] [place] [address] [id number] Jun, [facility] [address] [place] [address] [id number] Jun, [facility] [address] [place] [address] [id number] Jun, Hyperglycemia R73.9 and 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 [facility] [id number] [place] [address] [id number] May, [place] [address] [place] [address] 39808- 5776 May, Onychomycosis B35.1 ; 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 and Xerosis cutis L85.3 [facility] [id number] [place] [address] [id number] Apr, 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 [facility] [id number] [place] [address] [id number] Mar, [facility] [id number] [place] [address] [id number] Mar, assisted current use of anticoagulant Z79.01 [facility] [address] [id number] [place] [id number] Mar, Encounter for immunization Z23 and Diabetes type 2, controlled E11.[address] [id number] [place] [id number] Mar, [address] [id number], [place] [phone] Mar, 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
--- OUTSIDE RECORDS SUMMARY | 2018-05-30 14:17 | XMS REPORT ---
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 Active 59612613 Problem Diabetes type 2, controlled E11.9 Active 43711127 Problem Insomnia, unspecified type G47.00 Active 961221639 Problem Anxiety F41.9 Active 09513858 Problem Essential hypertension I10 Active 76123551 Problem History of pulmonary embolus (PE) Z86.711 Active 989046945 Problem Dementia without behavioral disturbance, unspecified dementia type F03.90 Active 33156822 Problem Chronic obstructive pulmonary disease, unspecified COPD type J44.9 Active 01335997 ALLERGIES No Information ENCOUNTERS Encounter Location Date Diagnosis Via [facility] [employer] [facility] [address] [place] [id number] Nov, Insomnia, unspecified type G47.00 [place] [address] [id number], [place] [address] Nov, DM neuro manif type II E11.49 [facility] [address] [facility] [id number] [place] [address]26[address]18 October, [place] [id number] [place] [address]709- [address]108 October, Via [facility] [address] [place] [id number] October, Anxiety F41.9 [place] [address] [id number], [place] [address] October, [facility] [address] [facility] [id number], [place] [address] Sep, Via [employer] [facility] [address] [place] [id number] Sep, Bronchitis J40 and Cough R05 [place] [address] [facility] [id number], [place] [address] Aug, Via [facility] [address] [place] [id number] Aug, Nausea R11.0 and Weakness R53.1 Via [facility] [address] [place] [id number] Jun, Diabetes type 2, controlled E11.9 and 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 [place] [address]65[address], [place] [address] Mar, [place] [address] [place] [address] 679117- [address] Mar, Via [employer] [facility] [address] [place] [id number] Mar, Dementia without behavioral disturbance, unspecified dementia type F03.90 and Diabetes type 2, controlled E11.9 [place] [address] [id number] [address] Jan, Via [facility] [address] [id number] Jan, Diabetes type 2, controlled E11.9 ; Chronic obstructive pulmonary disease, unspecified COPD type J44.9 and Essential hypertension I10 [place] [address] [facility] [id number], [place] [address] Nov, Via [facility] [address] [place] [id number] Nov, Chronic obstructive pulmonary disease, unspecified COPD type J44.9 and Diabetes type 2, controlled E11.9 Via [facility] [address] [id number] October, Diabetes type 2, controlled E11.9 and Essential hypertension I10 [facility] [address] [id number] [id number] October, Cough R05 Via [facility] [address] [place] [id number] Aug, Acute nasopharyngitis J00 Via [facility] [address] [place] [id number] Jun, Diabetes type 2, controlled E11.9 ; Schizophrenia, unspecified type F20.9 and History of pulmonary embolus (PE) Z86.711 [facility] [address]00565100[place], [place] [address] May, [facility] [id number] [place] [address] 13877- 5423 May, [facility] [address] [place] [address] 97839- 4134 Mar, Via [facility] [address] [place] [id number] Mar, Diabetes type 2, controlled E11.9 ; History of pulmonary embolus (PE) Z86.711 and Schizophrenia, unspecified type F20.9 [facility] [address]00565[address], [place] [address] Mar, [facility] [address], [place] [address] Mar, [address] [id number] Mar, CAP (community acquired pneumonia) J18.9 and 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 [address] [id number] Feb, [address] [place] [address] [id number] Feb, [address] [id number] [place] [address] [phone] Feb, DM neuro manif type II E11.49 ; Schizophrenia, unspecified type F20.9 and half-way current use of anticoagulant Z79.01 [place] [address] [id number] [address] Feb, Xerosis of skin L85.3 ; Other hammer toe(s) (acquired), right foot M20.41 ; Other hammer toe(s) (acquired), left foot M20.42 and DM neuro manif type II E11.49 [facility] [id number] [place] [address] [id number] Jan, [facility] [id number] [place] [address] [id number] Jan, 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 [facility] [id number] [place] [address] [id number] Jan, DM neuro manif type II E11.49 ; 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 and Schizophrenia, unspecified type F20.9 [facility] [id number] [place] [address] [phone] Dec, DM neuro manif type II E11.49 ; 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 and Schizophrenia, unspecified type F20.9 [facility] [id number] [place] [address] [phone] Nov, 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 [facility] [id number] [place] [address] [phone] Nov, DM neuro manif type II E11.49 [facility] [id number] [place] [address] [id number] Nov, DM neuro manif type II E11.49 and 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 [facility] [address] [address] Nov, Onychomycosis B35.1 ; Other hammer toe(s) (acquired), right foot M20.41 ; Other hammer toe(s) (acquired), left foot M20.42 and DM neuro manif type II E11.49 [facility] [id number] [id number] October, [facility] [id number] [place] [address] [id number] October, [facility] [id number] [phone] Sep, [facility] [id number] [place] [address] [phone] Aug, [place] [id number] [place] [address] 2549 Aug, Onychomycosis B35.1 ; Xerosis cutis L85.3 and DM neuro manif type II E11.49 [facility] [id number] [place] [address] [id number] Jul, [facility] [id number] [place] [address] [id number] Jun, [facility] [id number] [place] [address] [id number] Jun, Hyperglycemia R73.9 [facility] [id number] [place] [address] [phone] Jun, [facility] [id number] [place] [address] [id number] Jun, [facility] [address] [place] [address] [phone] Jun, Hyperglycemia R73.9 and 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 [facility] [id number] [place] [address] [id number] May, [place] [address] [place] [address]6623- [address] May, Onychomycosis B35.1 ; 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 and Xerosis cutis L85.3 [facility] [id number] [place] [address] [id number] Apr, 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 [facility] [id number] [place] [address] [id number] Mar, [facility] [id number] [place] [address] [id number] Mar, half-way current use of anticoagulant Z79.01 [facility] [address] [id number] [place] [id number] Mar, Diabetes type 2, controlled E11.9 and Encounter for immunization Z23 [facility] [address] [id number] [place] [id number] Mar, [address] [id number][place] [phone] Mar, 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 [id number][place] [phone] Feb, [address] [id number][place] [phone] Feb, Hx of cardiac pacemaker V12.50 ; Hypertension 401.9 ; COPD (chronic obstructive pulmonary disease) 496 and History of hallucinations V11.9 IMMUNIZATIONS No Known Immunizations SOCIAL HISTORY Never Assessed REASON FOR VISIT Halfway PLAN OF CARE Activity Details Follow Up prn Reason: VITAL SIGNS MEDICATIONS No Known Medications RESULTS No Results PROCEDURES Procedure Date Ordered Result Body Site Minor complication (15 mins) September 05, 2017 INSTRUCTIONS MEDICATIONS ADMINISTERED No Known Medications [...]
--- OUTSIDE RECORDS SUMMARY | 2018-05-30 14:17 | XMS REPORT ---
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 Active 458031283 Problem Schizophrenia, unspecified type F20.9 Active 47254790 Problem DM neuro manif type II E11.49 Active 95401845 Problem Diabetes type 2, controlled E11.9 Active 04855849 Problem Insomnia, unspecified type G47.00 Active 664237531 Problem Anxiety F41.9 Active 72869897 Problem Essential hypertension I10 Active 83858806 Problem History of pulmonary embolus (PE) Z86.711 Active 017812058 Problem Dementia without behavioral disturbance, unspecified dementia type F03.90 Active 54935318 Problem Chronic obstructive pulmonary disease, unspecified COPD type J44.9 Active 80225024 ALLERGIES No Information ENCOUNTERS Encounter Location Date Diagnosis Via [facility] [employer] [address] [place] [id number] Nov, Insomnia, unspecified type G47.00 [place] [id number] [address] Nov, DM neuro manif type II E11.49 [facility] [address] [facility] [id number] [place] [address] 35552- 8568 October, [place] [id number] [place] [address] 50597- 8982 October, Via [facility] [address] [place] [id number] October, Anxiety F41.9 [place] [id number] [address]- [address] October, [facility] [address] [facility] [id number] [place] [address]- [address] Sep, Via [employer] [address] [id number] Sep, Bronchitis J40 and Cough R05 [place] [address] [facility] [id number] [place] [address] Aug, Via [employer] [address] [id number] Aug, Nausea R11.0 and Weakness R53.[address] 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 [address] [id number] Jan, Diabetes type 2, controlled E11.9 ; Chronic obstructive pulmonary disease, unspecified COPD type J44.9 and Essential hypertension I10 [place] [address] [facility] [id number] [place] [address] Nov, Via [employer] [address] [place] [id number] Nov, Chronic obstructive pulmonary disease, unspecified COPD type J44.9 and Diabetes type 2, controlled E11.[address] [facility] [address] [id number] October, Diabetes type 2, controlled E11.9 and Essential hypertension I10 [facility] [address] [id number] [id number] October, Cough R05 Via [facility] [address] [place] [id number] Aug, Acute nasopharyngitis J00 Via [facility] [address] [place] [id number] Jun, Diabetes type 2, controlled E11.9 ; Schizophrenia, unspecified type F20.9 and History of pulmonary embolus (PE) Z86.711 [facility] [address] [address]- 69[address] May, [facility] [id number] [place] [address]- 1974 May, [facility] [address] [place] [address] 36834- 0085 Mar, Via [facility] [address] [place] [id number] Mar, Diabetes type 2, controlled E11.9 ; History of pulmonary embolus (PE) Z86.711 and Schizophrenia, unspecified type F20.9 [facility] [address] [address]- 2678 Mar, [facility] [address] [address]- [address] Mar, [address]100[place], [place] [id number] Mar, CAP (community acquired pneumonia) J18.9 and 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 [address]100[place], [place] [id number] Feb, [address] [place] [address] [phone] Feb, [place] [id number] [place] [address] [phone] Feb, DM neuro manif type II E11.49 ; Schizophrenia, unspecified type F20.9 and prison current use of anticoagulant Z79.01 [place] [address] [id number] [address] Feb, Xerosis of skin L85.3 ; Other hammer toe(s) (acquired), right foot M20.41 ; Other hammer toe(s) (acquired), left foot M20.42 and DM neuro manif type II E11.49 [facility] [id number] [place] [address] [id number] Jan, [facility] [id number] [place] [address] [phone] Jan, 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 [facility] [id number] [place] [address] [phone] Jan, DM neuro manif type II E11.49 ; 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 and Schizophrenia, unspecified type F20.9 [facility] [place] [id number] [place] [address] [id number] Dec, DM neuro manif type II E11.49 ; 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 and Schizophrenia, unspecified type F20.9 [facility] [id number] [place] [address] [id number] Nov, 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 [facility] [place] [id number] [place] [address] [phone] Nov, DM neuro manif type II E11.49 [facility] [place] [id number] [place] [address] [id number] Nov, DM neuro manif type II E11.49 and 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 [facility] [address] [address] Nov, Onychomycosis B35.1 ; Other hammer toe(s) (acquired), right foot M20.41 ; Other hammer toe(s) (acquired), left foot M20.42 and DM neuro manif type II E11.49 [facility] [id number], [place] [id number] October, [facility] [place] [id number] [place] [address] [phone] October, [facility] [id number], [place] [id number] Sep, [facility] [id number] [place] [address] [phone] Aug, [place] [id number] [place] [address] 02340 2549 Aug, Onychomycosis B35.1 ; Xerosis cutis L85.3 and DM neuro manif type II E11.49 [facility] [place] [id number] [place] [address] [id number] Jul, [facility] [id number] [place] [address] [id number] Jun, [facility] [id number] [place] [address] [phone] Jun, Hyperglycemia R73.9 [facility] [id number] [place] [address] [phone] Jun, [facility] [id number] [place] [address] [id number] Jun, [facility] [id number] [place] [address] [phone] Jun, Hyperglycemia R73.9 and 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 [facility] [id number] [place] [address] [id number] May, [place] [address] [place] [address] 46812- 8934 May, Onychomycosis B35.1 ; 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 and Xerosis cutis L85.3 [facility] [place] [id number] [place] [address] [phone] Apr, 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 [facility] [place] [id number] [place] [address] [phone] Mar, [facility] [place] [id number] [place] [address] [id number] Mar, prison current use of anticoagulant Z79.01 [facility] [address] [id number] [place] [id number] Mar, Diabetes type 2, controlled E11.9 and Encounter for immunization Z23 [facility] [address] [id number] [place] [phone] Mar, [address] [id number], [place] [phone] Mar, 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 Active Symbicort 160-4.5 MCG/ACT Inhalation Twice a day 2 puffs 12h Nov, 30 days Active Namzaric 7-10 MG Orally Once a day 1 capsule in the evening 24h 18 Mar, 2017 30 day(s) Active Metformin HCl 500 mg Orally Twice a day 2 tablet in AM and 1 in PM 12h Mar, Active Eliquis 2.5 MG Orally 2 times a day 12h Active Insulin Syringe-Needle U-100 30G X 5/16 as directed Jun, Active Claritin 10 MG Orally Once a day 1 tablet 24h Active NovoLog Flexpen 100 UNIT/ML Subcutaneous 3 times a day with meals 15 units Active Levemir FlexTouch 100 UNIT/ML Subcutaneous 2 times a day. 15 u Jun, Active Tylenol 325 MG Orally every 4 hrs 2 tablets as needed 4h Active RESULTS No Results PROCEDURES Procedure Date Ordered Result Body Site Stable Visit (10 minutes) Jun 13, 2017 INSTRUCTIONS MEDICATIONS ADMINISTERED No Known Medications [...]
--- OUTSIDE RECORDS SUMMARY | 2018-05-30 14:17 | XMS REPORT ---
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 923157601 Problem Schizophrenia, unspecified type F20.9 Active 09886058 Problem DM neuro manif type II E11.49 Active 49344672 Problem Diabetes type 2, controlled E11.9 Active 97051159 Problem Insomnia, unspecified type G47.00 Active 694330252 Problem Anxiety F41.9 Active 36153515 Problem Essential hypertension I10 Active 05809342 Problem History of pulmonary embolus (PE) Z86.711 Active 736811041 Problem Dementia without behavioral disturbance, unspecified dementia type F03.90 Active 76097736 Problem Chronic obstructive pulmonary disease, unspecified COPD type J44.9 Active 78019272 ALLERGIES No Information ENCOUNTERS Encounter Location Date Diagnosis Via [employer] [address] [place] [id number] Nov, Insomnia, unspecified type G47.00 [place] [id number] [address] Nov, DM neuro manif type II E11.49 [facility] [address] [facility] [id number] [place] [address] October, [place] [id number] [place] [address] 63228- [address] October, Via [facility] [employer] [address] [place] [id number] October, Anxiety F41.9 [place] [address] [id number], [place] [address] October, [facility] [address] [facility] [id number], [place] [address] Sep, Via [employer] [address] [place] [id number] Sep, Bronchitis J40 and Cough R05 [place] [address] [facility] [id number] [address] Aug, Via [employer] [address] [place] [id number] Aug, Nausea R11.0 and Weakness R53.1 Via [facility] [employer] [address] [place] [id number] Jun, Diabetes type 2, controlled E11.9 and 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 [place] [address], [place] [address] Mar, [place] [address] [place] [address]85[address] Mar, Via [employer] [address] [place] [id number] Mar, Dementia without behavioral disturbance, unspecified dementia type F03.90 and Diabetes type 2, controlled E11.9 [place] [id number] [address] Jan, Via [facility] [employer] [address] [id number] Jan, Diabetes type 2, controlled E11.9 ; Chronic obstructive pulmonary disease, unspecified COPD type J44.9 and Essential hypertension I10 [place] [address] [facility] [id number], [place] [address] Nov, Via [employer] [address] [place] [id number] Nov, Chronic obstructive pulmonary disease, unspecified COPD type J44.9 and Diabetes type 2, controlled E11.9 Via [facility] [employer] [address] [id number] October, Diabetes type 2, controlled E11.9 and Essential hypertension I10 [facility] [id number] [id number] October, Cough R05 Via [facility] [address] [place] [id number] Aug, Acute nasopharyngitis J00 [facility] [address] [place] [id number] Jun, Diabetes type 2, controlled E11.9 ; Schizophrenia, unspecified type F20.9 and History of pulmonary embolus (PE) Z86.711 [facility] [address], [place] [address] May, [facility] [id number] [place] [address]- 2911 May, [facility] [address] [place] [address] 76555- 9395 Mar, Via [facility] [address] [place] [id number] Mar, Diabetes type 2, controlled E11.9 ; History of pulmonary embolus (PE) Z86.711 and Schizophrenia, unspecified type F20.9 [facility] [address], [place] [address] Mar, [facility] [address], [place] [address] Mar, [address] [id number] Mar, CAP (community acquired pneumonia) J18.9 and 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 [address] [id number] Feb, [address] [place] [address] [id number] Feb, [place] [id number] [place] [address] [id number] Feb, DM neuro manif type II E11.49 ; Schizophrenia, unspecified type F20.9 and senior living current use of anticoagulant Z79.01 [place] [address] 5815765[place] [address] Feb, Xerosis of skin L85.3 ; Other hammer toe(s) (acquired), right foot M20.41 ; Other hammer toe(s) (acquired), left foot M20.42 and DM neuro manif type II E11.49 [facility] [id number] [place] [address] [id number] Jan, [facility] [id number] [place] [address] [id number] Jan, 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 [facility] [id number] [place] [address] [id number] Jan, DM neuro manif type II E11.49 ; 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 and Schizophrenia, unspecified type F20.9 [facility] [id number] [place] [address] [id number] Dec, DM neuro manif type II E11.49 ; 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 and Schizophrenia, unspecified type F20.9 [facility] [id number] [place] [address] [id number] Nov, 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 [facility] [id number] [place] [address] [phone] Nov, DM neuro manif type II E11.49 [facility] [id number] [place] [address] [id number] Nov, DM neuro manif type II E11.49 and 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 [facility] [address] [address] Nov, Onychomycosis B35.1 ; Other hammer toe(s) (acquired), right foot M20.41 ; Other hammer toe(s) (acquired), left foot M20.42 and DM neuro manif type II E11.49 [facility] [id number] [id number] October, [facility] [id number] [place] [address] [id number] October, [facility] [id number] [id number] Sep, [facility] [id number] [place] [address] [id number] Aug, [place] [id number] [place] [address] 2548 Aug, Onychomycosis B35.1 ; Xerosis cutis L85.3 and DM neuro manif type II E11.49 [facility] [id number] [place] [address] [id number] Jul, [facility] [id number] [place] [address] [phone] Jun, [facility] [id number] [place] [address] [id number] Jun, Hyperglycemia R73.9 [facility] [id number] [place] [address] [id number] Jun, [facility] [id number] [place] [address] [id number] Jun, [facility] [id number] [place] [address] [id number] Jun, Hyperglycemia R73.9 and 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 [facility] [id number] [place] [address] [id number] May, [place] [address] [place] [address] 27730- 8842 May, Onychomycosis B35.1 ; 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 and Xerosis cutis L85.3 [facility] [id number] [place] [address] [id number] Apr, 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 [facility] [id number] [place] [address] [id number] Mar, [facility] [id number] [place] [address] [id number] Mar, senior living current use of anticoagulant Z79.01 [facility] [address] [id number] [place] [id number] Mar, Diabetes type 2, controlled E11.9 and Encounter for immunization Z23 [facility] [address] [id number] [place] [id number] Mar, [address] [id number] [id number] Mar, 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
--- OUTSIDE RECORDS SUMMARY | 2018-05-30 14:18 | XMS REPORT ---
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 Active 617634168 Problem Anxiety F41.9 Active 83851906 Problem Dementia without behavioral disturbance, unspecified dementia type F03.90 Active 33949300 Problem History of pulmonary embolus (PE) Z86.711 Active 414107632 Problem Schizophrenia, unspecified type F20.9 Active 31695777 Problem Chronic obstructive pulmonary disease, unspecified COPD type J44.9 Active 11003793 Problem Essential hypertension I10 Active 54227610 ALLERGIES No Information ENCOUNTERS Encounter Location Date Diagnosis [facility] [employer] [address] [place] [id number] October, Anxiety F41.9 [place] [address] [place] [address] 42481- 0926 October, [place] [id number] [place] [address] 03849- 4037 Sep, [facility] [employer] [address] [place] [id number] Sep, Bronchitis J40 and Cough R05 [address] [address]- [address] Aug, [facility] [employer] [address] [place] [id number] Aug, Nausea R11.0 and Weakness R53.1 [employer] [address] [place] [id number] Jun, Diabetes type 2, controlled E11.9 and 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 [place] [address], [place] [address] Mar, [place] [address] [address] Mar, [facility] [employer] [address] [place] [id number] Mar, Dementia without behavioral disturbance, unspecified dementia type F03.90 and Diabetes type 2, controlled E11.9 [place] [address] [id number] [address] Jan, [facility] [employer] [address] [place] [id number] Jan, Diabetes type 2, controlled E11.9 ; Chronic obstructive pulmonary disease, unspecified COPD type J44.9 and Essential hypertension I10 [place] [address] [address] Nov, [facility] [employer] [address] [place] [id number] Nov, Chronic obstructive pulmonary disease, unspecified COPD type J44.9 and Diabetes type 2, controlled E11.9 [employer] [address] [place] [id number] October, Diabetes type 2, controlled E11.9 and Essential hypertension I10 [facility] [address] [id number] [id number] October, Cough R05 [employer] [address] [place] [id number] Aug, Acute nasopharyngitis J00 [employer] [address] [id number] Jun, Diabetes type 2, controlled E11.9 ; Schizophrenia, unspecified type F20.9 and History of pulmonary embolus (PE) Z86.711 [place] [address] [id number] [address] May, [place] [address] 1428665100[place], [place] [address] May, [facility] [id number] [place] [address] 06769- 2566 Mar, Via [facility] [address] [place] [id number] Mar, Diabetes type 2, controlled E11.9 ; History of pulmonary embolus (PE) Z86.711 and Schizophrenia, unspecified type F20.9 [place] [address] 47844- [address] Mar, [place] [address] 9[address]69- 5579 Mar, [address] [id number] Mar, CAP (community acquired pneumonia) J18.9 and prison current use of anticoagulant Z79.[address] [id number] Feb, [address] [id number] Feb, [address] [id number] [place] [address] [id number] Feb, DM neuro manif type II E11.49 ; Schizophrenia, unspecified type F20.9 and prison current use of anticoagulant Z79.01 [place] [id number] [place] [address] 65877- 2507 Feb, Xerosis of skin L85.3 ; Other hammer toe(s) (acquired), right foot M20.41 ; Other hammer toe(s) (acquired), left foot M20.42 and DM neuro manif type II E11.[address] [id number] Jan, [address] [id number] Jan, 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 [address] [id number] [place] [address] [id number] Jan, DM neuro manif type II E11.49 ; prison current use of anticoagulant Z79.01 and Schizophrenia, unspecified type F20.9 [facility] [place] [id number] [place] [address] [id number] Dec, DM neuro manif type II E11.49 ; prison current use of anticoagulant Z79.01 and Schizophrenia, unspecified type F20.9 [facility] [id number] [place] [address] [id number] Nov, 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 [facility] [place] [id number] [place] [address] [id number] Nov, DM neuro manif type II E11.49 [facility] [id number] [place] [address] [id number] Nov, DM neuro manif type II E11.49 and prison current use of anticoagulant Z79.01 [facility] [address] [address] Nov, Onychomycosis B35.1 ; Other hammer toe(s) (acquired), right foot M20.41 ; Other hammer toe(s) (acquired), left foot M20.42 and DM neuro manif type II E11.49 [facility] [id number] [place] [address] [id number] October, [address] [id number] [place] [address] [id number] October, [facility] [id number] [place] [address] [id number] Sep, [facility] [id number] [place] [address] [id number] Aug, [facility] [address] [address] Aug, Onychomycosis B35.1 ; Xerosis cutis L85.3 and DM neuro manif type II E11.49 [facility] [address] [place] [address] [id number] Jul, [address] [phone] Jun, [facility] [place] [id number] [id number] Jun, Hyperglycemia R73.9 [facility] [place] [id number] [place] [address] [id number] Jun, [facility] [place] [address] [place] [address] [id number] Jun, [address] [id number] [place] [address] [id number] Jun, Hyperglycemia R73.9 and 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 [address] [id number] [place] [address] [id number] May, [facility] [id number] [place] [address] [id number]- 6425 May, Onychomycosis B35.1 ; 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 and Xerosis cutis L85.[address] [place] [address] [id number] Apr, 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 [place] [address] [id number] Mar, [facility] [address] [id number] [place] [address] [id number] Mar, prison current use of anticoagulant Z79.01 [facility] [address] [place] [address] [id number] Mar, Diabetes type 2, controlled E11.9 and Encounter for immunization Z23 [facility] [address] [id number] [id number] Mar, [address] [place] [address] [id number] Mar, 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 [place] [address] [id number] Feb, [address] [place] [address] [id number] Feb, Hx of cardiac pacemaker V12.50 ; Hypertension 401.9 ; COPD (chronic obstructive pulmonary disease) 496 and History of hallucinations V11.9 IMMUNIZATIONS No Known Immunizations SOCIAL HISTORY Never Assessed REASON FOR VISIT Refill request PLAN OF CARE VITAL SIGNS MEDICATIONS Unknown Medications RESULTS No Results PROCEDURES No Known procedures INSTRUCTIONS MEDICATIONS ADMINISTERED No Known Medications MEDICAL (GENERAL) HISTORY Type Description Date Surgical History cardiac pacemaker Surgical History bypass surgeries x's 2 Hospitalization History had CVA Audi 2007 Hospitalization History COPD Exacerbation, anemia, acute kidney injury 2015
[2018-05-30] MEDS ORDERED: NEO/POLY/BAC (NEOSPORIN) OINT 15 GM TUBE ONE (14:23)
[2018-05-30] MEDS ORDERED: NS IV 1000 ML 1,000 ML IV SCH (14:25)
[2018-05-30] MEDS ORDERED: PATIENT MAY USE OWN MEDS, ALL PO SCH (14:30)
--- NOTE | 2018-05-30 14:31 | Packmaker Change ---
Pacemaker Change Physician (s)/Envelope Stamping Machine Operator (s) Physician TL RAMSEY MD Pre-Procedure Diagnosis Pre-Procedure Diagnosis: Sick sinus syndrome, permanent pacemaker Post-Procedure Note Procedure Start Date: May 30, 2018 Name of Procedure: dual pacemaker generator replacement Findings/Procedure Note 67 years old gentleman with history of sick sinus syndrome, had dual-chamber pacemaker reached DELORES and scheduled for generator replacement. Next After explained the procedure to the patient will present calls were explained patient was placed on the table, conscious sedation achieved, local anesthesia achieved then skin incision was made over the old pacemaker. Skin pocket was reached then the old device was retrieved. The atrial and ventricular leads were examined. Patient had a Medtronic ventricular lead serial number [id number], atrial lead [id number], the old device was removed. New device was used with Medtronic LISA DR serial number [id number] attached to the lead and placed in the skin pocket, the skin pocket was closed in 2 layers with no complication. Next Conclusion Successful dual-chamber pacemaker generator replacement with no complication Anesthesia Type: Conscious Sedation Estimated blood loss (mL): 10 ML Contrast Amount: 0 ML Post-Procedure Diagnosis Post-operative diagnosis: Sick sinus syndrome Permanent pacemaker Hypertension Hyperlipidemia TL RAMSEY MD May 30, 2018 14:31
[2018-05-30] MEDS: APIXABAN 2.5 MG (ELIQUIS) TABLET PO SCH (20:22)
[2018-05-30] MEDS: ceFAZolin INJECTION 1,000 MG in NS (IVPB) 50 ML IV SCH (20:22)
[2018-05-31] VITALS: BP 141/61
[2018-05-31] MEDS: ceFAZolin INJECTION 1,000 MG in NS (IVPB) 50 ML IV SCH ×2 (05:30→12:04)
[2018-05-31 07:00] VITALS: BP 144/66
[2018-05-31] MEDS ORDERED: CEFU500T63 PO (08:08)
--- NOTE | 2018-05-31 08:11 | Cardiology Progress Note ---
Subjective Date Seen by Provider: May 31, 2018 Time Seen by Provider: 08:09 Subjective/Events-last exam patient is sitting in a chair, eating breakfast, feeling well. Denied any chest pain. Wound is healing well. Review of Systems General: No Chills, No Night Sweats, No Fatigue, No Malaise, No Appetite, No Other HEENT: No Head Aches, No Visual Changes, No Eye Pain, No Ear Pain, No Dysphasia , No Sinus Congestion, No Post Nasal Drip, No Sore Throat, No Other Pulmonary: No Dyspnea, No Cough, No Pleuritic Chest Pain, No Other Cardiovascular: No: Chest Pain, Palpitations, Orthopnea, Paroxysmal Noc. Dyspnea, Edema, Lt Headedness, Other Objective-Cardiology Exam Last Set of Vital Signs Vital Signs 05/30/18 05/31/18 05/31/18 19:50 00:00 01:00 Temp 96.8 Pulse 58 Resp 22 B/P (MAP) 141/61 (87) Pulse Ox 97 O2 Delivery Nasal Cannula O2 Flow Rate 1.00 Capillary Refill : I&O Intake and Output 05/31/18 00:00 Intake Total 1200 ml Output Total 350 ml Balance 850 ml Intake Oral 200 ml IV Total 1000 ml Output Urine Total 350 ml General: Alert, Oriented X3, Cooperative HEENT: Atraumatic, PERRLA Neck: Supple, No JVD, No Thyromegaly Lungs: Clear to Auscultation, Normal Air Movement Heart: Regular Rate, Normal S1, Normal S2, No Murmurs Abdomen: Normal Bowel Sounds, Soft, No Tenderness, No Hepatosplenomegaly, No Masses Extremities: No Clubbing, No Cyanosis, No Edema, Normal Pulses, No Tenderness/ Swelling Skin: No Rashes, No Breakdown, No Significant Lesion Neuro: Normal Gait, Normal Speech, Strength at 5/5 X4 Ext, Normal Tone, Sensation Intact Psych/Mental Status: Mental Status NL, Mood NL Results Lab Laboratory Tests 05/30/18 10:58 A/P-Cardiology Admission Diagnosis sick sinus syndrome Hypertension Hyperlipidemia Cardiac pacemaker Assessment/Plan sick sinus syndrome, history of permanent pacemaker, status post generator replacement, recovered well. Hypertension, good control, continue to monitor blood pressure next Hyperlipidemia, monitor lipid History of schizoaffective disorde TL RAMSEY MD May 31, 2018 08:10
--- NOTE | 2018-05-31 08:11 | Clinic Account Progress/Dx ---
Clinic Account Progress/Dx DIAGNOSIS: Date Seen by Provider: May 31, 2018 Time Seen by Provider: 08:11 sick sinus syndrome Hypertension Hyperlipidemia Cardiac pacemaker TL RAMSEY MD May 31, 2018 08:11
[2018-05-31] MEDS: APIXABAN 2.5 MG (ELIQUIS) TABLET PO SCH (08:40)
--- NOTE | 2018-05-31 10:41 | NUR ---
CM/SS. Patient discharged today back to custodial jail care at [facility]. Patient had OBS stay here and will not, therefore qualify for Medicare skilled benefits. [facility] scheduled grain picker is 1300. Unit RN aware, patient dressed and ready to leave.
[2018-05-31 11:07] VITALS: BP 156/69
--- NOTE | 2018-05-31 11:52 | NUR ---
Pastoral Care Visit.
[2018-05-31 12:00] VITALS: BP 156/69
--- NOTE | 2018-05-31 12:01 | NUR ---
REPORT GIVEN TO NATALIA AT [facility], NO QUESTIONS/CONCERNS VOICED.
--- NOTE | 2018-05-31 13:00 | NUR ---
SHALA PEDRO discharged to [facility]. NH notified of discharge and report given to NATALIA. SHALA PEDRO belongings sent with PT. Skin dry and intact; no breakdown noted. Vital signs are stable at time of discharge. Condition is stable at time of discharge. Discharge instructions and copies of H&P, discharge summary, physician's order, lab reports, consultation reports, other dictated reports, diagnostic imaging reports, Advance Directive, eMAR, vital signs, intake and output sent with PT/NH STAFF. Patient discharged from ICU4 on 05/31/18 at 1300. SHALA PEDRO left floor via WC, accompanied by [facility] STAFF. SHALA PEDRO and family/DPOA notified and verbalize understanding of discharge to [facility].
== END 2018-05-31 13:00 ==
LOC: CATH 10:31 → ICU 14:50 → CATH 05-31 13:00
PROVIDERS: ATTEND Internal Medicine Cardiovascular Disease
DX: Z45.010 Encounter for checking and testing of cardiac pacemaker pulse generator [battery] (principal); I49.5 Sick sinus syndrome; I10 Essential (primary) hypertension; E78.5 Hyperlipidemia, unspecified; I25.10 Atherosclerotic heart disease of native coronary artery without angina pectoris; I08.0 Rheumatic disorders of both mitral and aortic valves; E11.9 Type 2 diabetes mellitus without complications; R06.09 Other forms of dyspnea; I65.23 Occlusion and stenosis of bilateral carotid arteries; J44.9 Chronic obstructive pulmonary disease, unspecified; K21.9 Gastro-esophageal reflux disease without esophagitis; F03.90 Unspecified dementia, unspecified severity, without behavioral disturbance, psychotic disturbance, mood disturbance, and anxiety; Z86.718 Personal history of other venous thrombosis and embolism; Z79.01 Long term (current) use 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s; Z79.4 Long term (current) use of insulin; Z79.899 Other long term (current) drug therapy; Z87.891 Personal history of nicotine dependence; Z95.1 Presence of aortocoronary bypass graft
CPT/HCPCS: 33228; 36415; 71045; 80053; 80061; 81000; 82962; 85027; 85610; 85730; 87081; 93005

== ENCOUNTER 2018-07-16 21:16 | Emergency (ER) | payer MEDICAID ==
[~2018-07-16] VITALS: Ht 167.6 cm; Wt 81.6 kg
[~2018-07-16 21:16] MED LIST changes: +CEFU500T63 PO; +LOPE2CAP PO; +MELA3TAB PO; +METO-387 PO; +TRAM50TA2 PO
[2018-07-16 21:33] LABS: BASOPHILS # (AUTO) 0.2 10^3/uL (0.0-0.1); BASOPHILS % (AUTO) 2 % (0-10); EOSINOPHILS # (AUTO) 0.5 10^3/uL (0.0-0.3); EOSINOPHILS % (AUTO) 4 % (0-10); HEMATOCRIT 33 % (40-54); HEMOGLOBIN 10.3 G/DL (13.3-17.7); LYMPHOCYTES # (AUTO) 4.3 X 10^3 (1.0-4.0); LYMPHOCYTES % (AUTO) 33 % (12-44); MEAN CORPUSCULAR HEMOGLOBIN 24 PG (25-34); MEAN CORPUSCULAR HGB CONC 32 G/DL (32-36); MEAN CORPUSCULAR VOLUME 75 FL (80-99); MEAN PLATELET VOLUME 9.7 FL (7.4-10.4); MONOCYTES # (AUTO) 1.1 X 10^3 (0.0-1.0); MONOCYTES % (AUTO) 8 % (0-12); NEUTROPHILS # (AUTO) 7.1 X 10^3 (1.8-7.8); NEUTROPHILS % (AUTO) 54 % (42-75); PLATELET COUNT 344 10^3/uL (130-400); RED CELL DISTRIBUTION WIDTH 17.6 % (10.0-14.5); WHITE BLOOD COUNT 13.2 10^3/uL (4.3-11.0)
[2018-07-16 21:40] LABS: INR 1.3 (0.8-1.4)
--- NOTE | 2018-07-16 21:40 | ED Chest Pain ---
General Chief Complaint: Chest Pain Stated Complaint: L SIDE PAIN Source: patient (PT IS FAIR HISTORIAN, BUT DOES HAVE HX OF DEMENTIA--HAS LIMITED PAST MEDICAL HISTORY), EMS, group home records, old records History of Present Illness Date Seen by Provider: Jul 16, 2018 Time Seen by Provider: 21:17 Initial Comments PT ARRIVES VIA EMS FROM VIA [facility], [place] PT C/O LEFT LATERAL CHEST PAIN SINCE 0400 THIS AM PAIN IS WORSE WITH DEEP BREATHS AND WITH PINPOINT PALPATION OF AREA PT HAS COPD, BUT NO INCREASE IN CHRONIC SHORTNESS OF BREATH OR COUGH NO FEVER, SWEATS, OR CHILLS NO SWELLING IN LEGS/ FEET OR PAIN IN CALVES NO ABDOMINAL PAIN NO NAUSEA OR VOMITING PT HAS CHRONIC DIARRHEA SINCE CHOLECYSTECTOMY LAST YEAR--HAS HAD 4 LOOSE BM'S TODAY NO PROBLEMS URINATING NO PROBLEMS EATING OR DRINKING --HAS EATEN NORMAL ALL DAY, INCLUDING SUPPER NO KNOWN INJURY PT HAS HAD TYLENOL X 1 TODAY FOR PAIN EMS GAVE 4 BABY ASPIRIN PT HAS HAD ALL OF HIS EVENING MEDICATIONS PT HAS HAD CABG AND MULTIPLE STENTS, WELL A PACEMAKER, PER PT PT IS DIABETIC BUT DOES NOT KNOW WHAT HIS BLOOD GLUCOSE HAS BEEN TODAY PCP: DR. RAMOS RN ENT: DR. RAMSEY/TAYLER Allergies and Home Medications Allergies Coded Allergies: No Known Drug Allergies (Unverified , 03/17/16) Home Medications Acetaminophen 325 Mg Tablet, 650 MG PO Q4H PRN for PAIN-MILD OR TEMPATURE, ( Reported) TAKES 2 (325 MG) TABLETS Apixaban 2.5 Mg Tablet, 2.5 MG PO BID, (Reported) Atorvastatin Calcium 10 Mg Tablet, 10 MG PO HS, (Reported) Budesonide/Formoterol Fumarate 10.2 Gm Hfa.aer.ad, 2 PUFF IH BID, (Reported) Cefuroxime Axetil 500 Mg Tablet, 500 MG PO BID Prescribed by: TL RAMSEY on 05/31/18 0808 Escitalopram Oxalate 10 Mg Tablet, 10 MG PO DAILY, (Reported) Guaifenesin/Dextromethorphan 118 Ml Syrup, 5 ML PO Q4H PRN for COUGH, (Reported) Ibuprofen 200 Mg Capsule, 600 MG PO Q6H PRN for FEVER, (Reported) ALTERNATE WITH ACETAMINOPHEN Q3H PRN / TAKES 3 (200 MG) TABLETS Insulin Aspart 100 Unit/1 Ml Susp, 5 UNIT SQ TID, (Reported) Insulin Determir 1,000 Units/10 Ml Soln, 15 UNITS SQ BID, (Reported) Lisinopril 20 Mg Tablet, 20 MG PO HS, (Reported) HOLD FOR SYSTOLIC LESS THAN 100 AND OR DIASTOLIC LESS THAN 60 HOLD IF PULSE IS LESS THAN OR EQUAL TO 60 Loperamide HCl 2 Mg Capsule, 2 MG PO PRN PRN for LOOSE STOOLS, (Reported) Loratadine 10 Mg Tablet, 10 MG PO DAILY PRN for ALLERGIES, (Reported) Mag Hydrox/Al Hydrox/Simeth 355 Ml Oral.susp, 30 ML PO Q4H PRN for INDIGESTION, (Reported) Melatonin 3 Mg Tablet, 3 MG PO HS, (Reported) Memantine HCl/Donepezil HCl 1 Each Cap.spr.24, 1 CAP PO DAILY, (Reported) Metformin HCl 500 Mg Tablet, 500 MG PO BID, (Reported) Metoprolol Succinate 25 Mg Tab.er.24h, 25 MG PO DAILY, (Reported) Nitrofurantoin Monohyd/M-Cryst 100 Mg Capsule, 100 MG PO BID Prescribed by: CELSA TABARES on 07/17/18 0024 Ondansetron 8 Mg Tab.rapdis, 8 MG PO TID PRN for NAUSEA/VOMITING-1ST LINE, ( Reported) Pantoprazole Sodium 40 Mg Tablet.dr, 40 MG PO HS, (Reported) Tramadol HCl 50 Mg Tablet, 50 MG PO BID PRN for LOWER BACK PAIN, (Reported) Patient Home Medication List Home Medication List Reviewed: Yes Review of Systems Review of Systems Constitutional: no symptoms reported; No chills, No diaphoresis, No dizziness, No fever EENTM: No Symptoms Reported Respiratory: See HPI Cardiovascular: See HPI, Chest Pain; Denies Edema, Denies Lightheadedness, Denies Palpitations, Denies Syncope Gastrointestinal: See HPI; Denies Abdominal Pain; Diarrhea; Denies Nausea, Denies Poor Appetite, Denies Poor Fluid Intake, Denies Vomiting; Other (STATES HE DRINKS ALOT OF COFFEE EVERY DAY) Genitourinary: No Symptoms Reported Musculoskeletal: No back pain, No neck pain Skin: no symptoms reported; No rash Psychiatric/Neurological: No Symptoms Reported, Pre-Existing Deficit (HX OF DEMENTIA) Endocrine: No Symptoms Reported, See HPI Hematologic/Lymphatic: No Symptoms Reported, Other (PT HAS HX OF DVT/PE AND IS ON ELIQUIS) Past Xgrbask-Qeomxz-Dghiqi Hx Patient Social History Alcohol Use: Denies Use Recreational Drug Use: No Smoking Status: Former Smoker (SMOKED 1 PPD X 50 YEARS, QUIT 2015) Type Used: Cigarettes Former Smoker, Quit: May 30, 2016 Recent Foreign Travel: No Contact w/Someone Who Travel: No Recent Hopitalizations: Yes Immunizations Up To Date Tetanus Booster (TDap): Unknown PED Vaccines UTD: No Date of Pneumonia Vaccine: October 05, 2007 Date of Influenza Vaccine: Mar 30, 2018 Seasonal Allergies Seasonal Allergies: Yes Past Medical History Surgeries: Yes (CARDIAC CATHS--PT STATES MULTIPLE STENTS, BUT NO DOCUMENTATION FOUND FOR THIS; CABG 2 VESSEL; PT HAS OLD/HEALED MIDLINE ABDOMINAL SCAR--PT DOES NOT KNOW WHAT IT IS FROM; ANISHA 10/2017; DUAL-CHAMBER PACEMAKER 2007 AND REPLACED 05/30/18) Cardiac, CABG, Gallbladder, Pacemaker Respiratory: Yes (DVT/PE--ON LIF[place]ONG ANTICOAGULATION) Pulmonary Embolism, COPD Currently Using CPAP: No Currently Using BIPAP: No Cardiac: Yes (CAROTID DISEASE; SICK SINUS SYNDROME--S/P PACEMAKER; AORTIC VALVE SCLEROSIS--NO STENOSIS, MR; CARDIAC CATHS--NO DOCUMENTATION OF STENTS; CABG 2 VESSEL) Coronary Artery Disease, Deep Vein Thrombosis, High Cholesterol, Hypertension, Valvular Heart Disease Neurological: Yes (CVA X 2) Dementia, Neuropathy, Stroke Reproductive Disorders: No Genitourinary: No Gastrointestinal: Yes (CHRONIC DIARRHEA POST ANISHA IN 2017) Gastroesophageal Reflux, Chronic Diarrhea, Gall Bladder Disease Musculoskeletal: Yes Chronic Back Pain Endocrine: Yes Diabetes, Insulin dep HEENT: Yes (EDENTULOUS) Cancer: No Psychosocial: Yes (DEMENTIA) Anxiety, Schizophrenia, Depression Integumentary: No Blood Disorders: Yes (DVT/PE--ON LIFELONG ANTICOAGULATION) Adverse Reaction/Blood Tranf: No Family Medical History Cardiovascular disease 19 FATHER 19 MOTHER G8 BROTHER G8 SISTER Diabetes mellitus 19 FATHER G8 BROTHER FH: lung cancer 19 MOTHER G8 BROTHER G8 SISTER Respiratory disorder 19 MOTHER Physical Exam Vital Signs Vital Signs - First Documented Capillary Refill : Height, Weight, BMI Height: 5'6.00" Weight: 180lbs. 0.0oz. 81.542700ek; 29.1 BMI Method:Stated General Appearance: No Apparent Distress (DOES NOT APPEAR TO BE IN ANY DISCOMFORT OR DISTRESS), WD/WN, Other (CONSTANT LIP-LICKING) HEENT: Other (EDENTULOUS) Neck: Full Range of Motion, Normal Inspection, Non Tender, Supple; No Carotid Bruit, No JVD Respiratory: Normal Breath Sounds, No Accessory Muscle Use, No Respiratory Distress, Other (PINPOINT TENDERNESS TO LEFT LATERAL CHEST WALL--REPRODUCES PAIN ) Cardiovascular: Regular Rate, Rhythm, No Edema, No JVD, Normal Peripheral Pulses, Systolic Murmur (2-3/6 MURMUR) Gastrointestinal: Normal Bowel Sounds, No Organomegaly, No Pulsatile Mass, Non Tender, Soft Extremity: Normal Capillary Refill, Normal Inspection, Normal Range of Motion, Non Tender, No Calf Tenderness, No Pedal Edema Neurologic/Psychiatric: Alert, Oriented x3 (BUT LIMITED MEMORY), No Motor/ Sensory Deficits (HX OF PERIPHERAL NEUROPATHY), Normal Mood/Affect, 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 Norm as Tested Skin: Normal Color, Warm/Dry; No Rash Progress/Results/Core Measures Results/Orders Lab Results Laboratory Tests Test 07/16/18 21:20 07/16/18 21:26 07/16/18 22:00 Range/Units White Blood Count 13.2 H 4.3-11.0 10^3/uL Red Blood Count 4.37 4.35-5.85 10^6/uL Hemoglobin 10.3 L 13.3-17.7 G/DL Hematocrit 33 L 40-54 % Mean Corpuscular Volume 75 L 80-99 FL Mean Corpuscular Hemoglobin 24 L 25-34 PG Mean Corpuscular Hemoglobin Concent 32 32-36 G/DL Red Cell Distribution Width 17.6 H 10.0-14.5 % Platelet Count 344 130-400 10^3/uL Mean Platelet Volume 9.7 7.4-10.4 FL Neutrophils (%) (Auto) 54 42-75 % Lymphocytes (%) (Auto) 33 12-44 % Monocytes (%) (Auto) 8 0-12 % Eosinophils (%) (Auto) 4 0-10 % Basophils (%) (Auto) 2 0-10 % Neutrophils # (Auto) 7.1 1.8-7.8 X 10^3 Lymphocytes # (Auto) 4.3 H 1.0-4.0 X 10^3 Monocytes # (Auto) 1.1 H 0.0-1.0 X 10^3 Eosinophils # (Auto) 0.5 H 0.0-0.3 10^3/uL Basophils # (Auto) 0.2 H 0.0-0.1 10^3/uL Prothrombin Time 16.0 H 12.2-14.7 SEC INR Comment 1.3 0.8-1.4 Activated Partial Thromboplast Time 47 H 24-35 SEC Sodium Level 137 135-145 MMOL/L Potassium Level 4.1 3.6-5.0 MMOL/L Chloride Level 106 98-107 MMOL/L Carbon Dioxide Level 21 21-32 MMOL/L Anion Gap 10 5-14 MMOL/L Blood Urea Nitrogen 8 7-18 MG/DL Creatinine 1.28 0.60-1.30 MG/DL Estimat Glomerular Filtration Rate 56 BUN/Creatinine Ratio 6 Glucose Level 162 H 70-105 MG/DL Calcium Level 8.9 8.5-10.1 MG/DL Corrected Calcium 9.0 8.5-10.1 MG/DL Magnesium Level 2.0 1.8-2.4 MG/DL Total Bilirubin 0.2 0.1-1.0 MG/DL Aspartate Amino Transf (AST/SGOT) 18 5-34 U/L Alanine Aminotransferase (ALT/SGPT) 11 0-55 U/L Alkaline Phosphatase 94 40-136 U/L Total Creatine Kinase 91 30-200 U/L Creatine Kinase MB 2.0 <6.6 NG/ML Troponin I < 0.028 <0.028 NG/ML B-Type Natriuretic Peptide 107.4 H <100.0 PG/ML Total Protein 6.9 6.4-8.2 GM/DL Albumin 3.9 3.2-4.5 GM/DL Amylase Level 80 25-125 U/L Lipase 25 8-78 U/L Glucometer 152 H 70-110 MG/DL Urine Color YELLOW Urine Clarity SLIGHTLY CLOUDY Urine pH 5 5-9 Urine Specific [place] 1.020 1.016-1.022 Urine Protein 2+ H NEGATIVE Urine Glucose (UA) NEGATIVE NEGATIVE Urine Ketones 1+ H NEGATIVE Urine Nitrite NEGATIVE NEGATIVE Urine Bilirubin NEGATIVE NEGATIVE Urine Urobilinogen NORMAL NORMAL MG/DL Urine Leukocyte Esterase 1+ H NEGATIVE Urine RBC (Auto) 2+ H NEGATIVE Urine RBC 5-10 H /HPF Urine WBC 2-5 /HPF Urine Crystals NONE /LPF Urine Bacteria TRACE /HPF Urine Casts NONE /LPF Urine Mucus SMALL H /LPF Urine Culture Indicated NO My Orders Orders - EDNA,CELSA K DO Accucheck Stat ONCE (07/16/18 21:27) Saline Lock/Iv-Start (07/16/18 21:27) Ekg Tracing (07/16/18:) Monitor-Rhythm Ecg Trace Only (07/16/18:27) Amylase (07/16/18:) BNP (07/16/18:27) Cbc With Automated Diff (07/16/18:) Comprehensive Metabolic Panel (07/16/18:) Creatine Kinase (07/16/18:) Creatine Kinase Mb (07/16/18:) Lipase (07/16/18:) Magnesium (07/16/18:) Protime With Inr (07/16/18:) Partial Thromboplastin Time (07/16/18:) Troponin I (07/16/18:) Ua Culture If Indicated (07/16/18:) Chest 1 View, Ap/Pa Only (07/16/18:27) Straight Cath For Spec.-Adult (07/16/18 21:54) Ct Abd/Pelvis Wo(Kidney Stone) (07/16/18 22:23) Ct Chest Wo (07/16/18 22:23) Ketorolac Injection (Toradol Injection) (07/16/18 22:30) Ceftriaxone For Iv Use (Rocephin For I (07/16/18 23:30) Medications Given in ED Current Medications Medications Dose Ordered Sig/Chalo Route Start Time Stop Time Status Last Admin Dose Admin Ceftriaxone Sodium 1000 mg/ Sterile Water 10 ml @ 200 mls/hr ONCE ONCE IV 07/16/18 23:30 07/16/18 23:32 DC 07/17/18 00:50 200 MLS/HR Ketorolac Tromethamine 30 mg ONCE ONCE IVP 07/16/18 22:30 07/16/18 23:16 DC 07/16/18 23:00 30 MG Vital Signs/I&O 07/16/18 07/16/18 07/17/18 21:18 21:18 01:53 Temp 96.1 96.1 Pulse 82 82 Resp 18 18 B/P (MAP) 176/81 (112) 157/78 (104) Pulse Ox 96 96 O2 Delivery Room Air Room Air Room Air FSBG Bedside Testing Finger Stick Blood Glucose: 152 Blood Glucose Action Taken: Dr Tabares notified Progress Progress Note : Progress Note UNEVENTFUL ER STAY--RESTED QUIETLY FOR ENTIRE ER STAY. NO FURTHER COMPLAINTS OF PAIN AT ANY TIME, OR ANY OTHER COMPLAINTS GIVEN TORADOL AND PAIN WAS IMPROVED Initial ECG Impression Date: Jul 16, 2018 Initial ECG Impression Time: 21:18 Initial ECG Rate: 80 Initial ECG Impression: 1st Degree AV Block Initial ECG Comparisson: Unchanged Comment ATRIAL PACED RHYTHM Diagnostic Imaging Comments CXR--NO ACUTE PROCESS, CHRONIC/STABLE LUNG CHANGES--PER RADIOLOGIST REPORT @ 2217 CT CHEST--NO ACUTE PROCESS, PER [facility] VIA FAX @ 7240 CT ABDOMEN/PELVIS--NO ACUTE PROCESS, PER [facility] VIA FAX @ 3417 Reviewed: Reviewed by Me Departure Communication (Admissions) MARKED DELAY IN OBTAINING TRANSPORT OF PT BACK TO [facility]--PT FINALLY WAS TRANSPORTED BY EMS BACK TO [facility] AT 0415 Impression Primary Impression: Left-sided chest wall pain Additional Impression: UTI (urinary tract infection) Disposition: 03 XFER SNF Condition: Improved Departure-Patient Inst. Referrals: ANDRESSA WELCH MD (PCP/Family) Primary Care Physician Patient Instructions: Chest Pain That Is Not Caused by the Heart (DC), Muscle and Bone Pain (DC), Urinary Tract Infection, Adult (DC) Add. Discharge Instructions: CONTINUE YOUR REGULAR MEDICATIONS PRESCRIBED TYLENOL AND MOTRIN NEEDED FOR PAIN FOLLOW UP WITH YOUR DR IN 2-3 DAYS IF NO BETTER RETURN TO ER IF WORSE All discharge instructions reviewed with patient and/or family. Voiced understanding. Scripts Nitrofurantoin Monohyd/M-Cryst (Macrobid 100 mg Capsule) 100 Mg Capsule 100 MG PO BID, #20 CAP Prov: CELSA TABARES DO 07/17/18 CELSA TABARES DO Jul 16, 2018 21:40
--- NOTE | 2018-07-16 21:44 | NUR ---
PT ASSISTED TO BEDSIDE TO ATEMPT URINE SAMPLE, PT STATES HE DOESNT FEEL LIKE HE NEEDS TO GO, NO URINE COLLECTED.
[2018-07-16 22:07] LABS: BILIRUBIN,URINE NEGATIVE (NEGATIVE); CLARITY,URINE SLIGHTLY CLOUDY; GLUCOSE, URINE (UA) NEGATIVE (NEGATIVE); KETONES,URINE 1+ (NEGATIVE); LEUKOCYTE ESTERASE ,URINE 1+ (NEGATIVE); NITRITE,URINE NEGATIVE (NEGATIVE); PH,URINE 5 (5-9); PROTEIN,URINE 2+ (NEGATIVE); UROBILINOGEN,URINE NORMAL (NORMAL)
--- NOTE | 2018-07-16 22:09 | Diagnostic Imaging Report ---
EXAMINATION: Chest radiograph, portable AP view. DATE: July 16, 2018 at 2134 hours. INDICATION: May 30, 2018. COMPARISON: 67-year-old male, chest pain. FINDINGS: There is a left-sided cardiac assist device with leads. The leads appear intact. There are median sternotomy wires. There are mediastinal surgical clips. Stable overall appearance of the cardiomediastinal silhouette. There is no identified pneumothorax. There are mild linear opacities in the right mid and lower lung zone as well as at the left lung base which are unchanged since comparison exam. These are also unchanged dating back to at least March 20, 2016. There is no new focal airspace consolidation. IMPRESSION: 1. Predominantly linear opacities in the mid to lower lung zones bilaterally which are unchanged since at least March 2016 compatible with chronic lung changes. Interstitial lung disease would be considered. 2. No identified acute cardiopulmonary abnormality. Dictated by: Dictated on workstation # [id number]
[2018-07-16 22:18] LABS: BACTERIA,URINE TRACE /HPF; COLOR,URINE YELLOW
[2018-07-16 22:20] LABS: ALANINE AMINOTRANSFERASE 11 U/L (0-55); ALBUMIN 3.9 GM/DL (3.2-4.5); ALKALINE PHOSPHATASE 94 U/L (40-136); AMYLASE 80 U/L (25-125); BILIRUBIN,TOTAL 0.2 MG/DL (0.1-1.0); BUN/CREATININE RATIO 6; CALCIUM 8.9 MG/DL (8.5-10.1); CARBON DIOXIDE 21 MMOL/L (21-32); CHLORIDE 106 MMOL/L (98-107); CREATINE KINASE 91 U/L (30-200); CREATININE SERUM 1.28 MG/DL (0.60-1.30); GFR ESTIMATED 56; GLUCOSE 162 MG/DL (70-105); LIPASE 25 U/L (8-78); POTASSIUM 4.1 MMOL/L (3.6-5.0); SODIUM 137 MMOL/L (135-145); TOTAL PROTEIN 6.9 GM/DL (6.4-8.2)
[2018-07-16] MEDS ORDERED: KETOROLAC 30 MG/ML VIAL IVP ONE (22:30)
[2018-07-16] MEDS ORDERED: cefTRIAXone FOR IV USE 1,000 MG in WATER (STERILE) FOR INJECTION 10 ML IV ONE (23:30)
[2018-07-17] MEDS ORDERED: NITR-65 PO (00:24)
[2018-07-17 01:53] VITALS: BP 157/78
--- NOTE | 2018-07-17 07:47 | Diagnostic Imaging Report ---
PROCEDURE: CT urinary tract, rule out kidney stone. TECHNIQUE: Multiple contiguous axial images were obtained through the abdomen and pelvis without the use of intravenous contrast. INDICATION: Left-sided abdominal pain. CORRELATION STUDY: None. FINDINGS: LOWER THORAX: Pacemaker is present. Patient's poststernotomy. Heart size normal.] Fibrotic type change about the lung bases. No significant basilar infiltrate. LIVER: Unremarkable. GALLBLADDER: Cholecystectomy clips. No bile ductal dilatation. SPLEEN: Unremarkable. PANCREAS: Generalized atrophic changes. ADRENAL GLANDS: Unremarkable. KIDNEYS: Asymmetric scarring and atrophic change about the inferior pole right kidney. There may be a small calcification. No hydronephrosis. ABDOMINAL AORTA: Postop change in aortofemoral bypass. Patency and intraluminal assessment is unable to be performed on this noncontrast study. No periaortic fluid collections. GASTROINTESTINAL TRACT: Moderate severity fecal retention. No obstruction. No inflammation. Normal appendix in the right lower quadrant. No abdominal ascites or free air. URINARY BLADDER: Relatively decompressed. REPRODUCTIVE: Prostate gland mildly prominent with calcifications present. OSSEOUS STRUCTURES: No acute abnormality. OTHER: None. IMPRESSION: 1. Negative for acute abnormality of the abdomen or pelvis. A preliminary report was provided by [facility]. Additional findings are also described on the final report compared to the preliminary interpretation. Dictated by: Dictated on workstation # [id number]
--- NOTE | 2018-07-17 08:17 | Diagnostic Imaging Report ---
PROCEDURE: CT chest without contrast. TECHNIQUE: Multiple contiguous axial images were obtained through the chest without the use of intravenous contrast. INDICATION: Left-sided pain. FINDINGS: Evaluation of the mediastinal structures limited given lack of contrast. Patient's poststernotomy. Heart size normal. Left-sided pacemaker present. No pericardial effusion. No definitive pathologically enlarged mediastinal lymph nodes. Few mildly prominent lymph nodes are present. Lung watt with emphysematous changes present. Mildly prominent asymmetric interstitial changes about the right lower lobe and middle lobe. No lobar consolidation. Within the posterior aspect of the right lung apex is asymmetric parenchymal density with slight cavitation. Additionally, in the right suprahilar region is question of a rounded density inseparable with the bronchovascular structures. This area measures approximately 16 x 15 mm. Impression: 1. Negative for acute abnormality about the chest. 2. There is emphysematous changes about the lung parenchyma along with chronic interstitial markings. 3. There is question of a potential right suprahilar mass. This however is somewhat indeterminate. Would recommend short-term followup CT imaging preferably to include contrast for reassessment in approximately 1-2 months. A preliminary report was provided by [facility]. Additional findings have been described with recommendations as above. Report was called/faxed to [facility] by hallie at 8:15 am. Dictated by: Dictated on workstation # [id number]
== END 2018-07-17 02:25 ==
LOC: EDUNIT# 21:16 → ER 21:17
DX: R07.89 Other chest pain (principal); N39.0 Urinary tract infection, site not specified; J44.9 Chronic obstructive pulmonary disease, unspecified; E11.40 Type 2 diabetes mellitus with diabetic neuropathy, unspecified; K21.9 Gastro-esophageal reflux disease without esophagitis; I25.10 Atherosclerotic heart disease of native coronary artery without angina pectoris; F41.9 Anxiety disorder, unspecified; F20.9 Schizophrenia, unspecified; F32.9 Major depressive disorder, single episode, unspecified; E78.00 Pure hypercholesterolemia, unspecified; I10 Essential (primary) hypertension; F03.90 Unspecified dementia, unspecified severity, without behavioral disturbance, psychotic disturbance, mood disturbance, and anxiety; Z87.19 Personal history of other diseases of the digestive system; Z82.49 Family history of ischemic heart disease and other diseases of the circulatory system; Z80.1 Family history of malignant neoplasm of trachea, bronchus and lung; Z86.73 Personal history of transient ischemic attack (TIA), and cerebral infarction without residual deficits; Z86.718 Personal history of other venous thrombosis and embolism; Z90.49 Acquired absence of other specified parts of digestive tract; Z79.01 Long term (current) use 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s; Z79.4 Long term (current) use of insulin; Z87.891 Personal history of nicotine dependence; Z98.890 Other specified postprocedural states; Z95.5 Presence of coronary angioplasty implant and graft; Z95.1 Presence of aortocoronary bypass graft; Z95.0 Presence of cardiac pacemaker; Z86.711 Personal history of pulmonary embolism
CPT/HCPCS: 36415; 51701; 71045; 71250; 74176; 80053; 81000; 82150; 82550; 82553; 82962; 83690; 83735; 83880; 84484; 85025; 85610; 85730; 93005; 93041; 96365; 96375

== ENCOUNTER 2018-08-08 12:15 | Outpatient (CLI) | payer MEDICAID ==
[~2018-08-08] VITALS: Ht 167.6 cm; Wt 81.6 kg
[~2018-08-08 12:15] MED LIST changes: +NITR-65 PO
[2018-08-08] MEDS ORDERED: GABA100C PO (12:40)
== END 2018-08-08 12:44 | disposition home or self-care (01) ==
LOC: PREOP 12:15
PROVIDERS: ATTEND Specialist
DX: Z01.818 Encounter for other preprocedural examination (principal)

== ENCOUNTER 2018-08-10 08:25 | Day surgery (SDC) | payer MEDICAID ==
[~2018-08-10] VITALS: Ht 167.6 cm; Wt 81.6 kg
[~2018-08-10 08:25] MED LIST changes: +GABA100C PO
[2018-08-10 08:39] VITALS: BP 134/96
[2018-08-10] MEDS: TETRACAINE 0.5% OPHTH SOLN 4 ML BTL (SINGLE DOSE ONLY) OU PRN ×4 (08:42→09:02)
[2018-08-10] MEDS ORDERED: MOXIFLOXACIN OPHTH SOLN 5 MG/ML 0.3 ML SYRINGE OP ONE (08:45)
[2018-08-10] MEDS ORDERED: POVIDONE (BETADINE) OPHTH SOLN 5% 30 ML OP ONE (08:45)
[2018-08-10] MEDS ORDERED: TIMOLOL MALEATE 0.5% 5 ML (TIMOPTIC) BTL OU PRN (08:45)
[2018-08-10] MEDS ORDERED: LIDOCAINE PF 1% 2 ML AMP IR PRN (08:45)
[2018-08-10] MEDS: CYCLOPENTOLATE 1% (CYCLOGYL) 2 ML DROPS OP SCH ×3 (08:51→09:02)
[2018-08-10] MEDS: PHENYLEPHRINE 10% OPHTH (NEO-SYN) 5 ML BTL OU SCH ×3 (08:52→09:02)
--- NOTE | 2018-08-10 09:20 | Ophthalmologist Pre-Op Note ---
Pre-Operative Progress Note H&P Reviewed The H&P was reviewed, patient examined and no changes noted. Date H&P Reviewed: Aug 10, 2018 Time H&P Reviewed: 09:20 Pre-Op Dx Cataract, Right Eye AMARILIS CASTRO MD Aug 10, 2018 09:20
[2018-08-10] MEDS ORDERED: MIDAZOLAM 2 MG/2 ML (VERSED) VIAL ONE (09:26)
--- NOTE | 2018-08-10 09:42 | Ophthalmology Operative Report ---
Cataract removal/placement IOL PREOPERATIVE DIAGNOSIS: Cataract Right Eye POSTOPERATIVE DIAGNOSIS: Cataract Right Eye PROCEDURE: Cataract removal and placement of posterior chamber implant, right eye SURGEON: Dennis Castro ANESTHESIA: Topical with sedation COMPLICATIONS: None ESTIMATED BLOOD LOSS: Minimal DESCRIPTION OF PROCEDURE: After proper informed consent was obtained, the patient, a 68 male, was taken to the Operating Room and the right eye was anesthetized with tetracaine. The right eye was then prepped and draped in the usual manner. A wire lid speculum was placed. A paracentesis was made at the left hand position. Preservative free lidocaine was injected into the anterior chamber followed by viscoelastic. A clear corneal incision was made in the temporal position. A capsulorrhexis was preformed and the central nuclear and cortical material were removed. The posterior capsule was polished and Patrick 22.0 [id number] IOL was placed into the capsular bag. The residual viscoelastic was aspirated and balanced saline solution was injected into the anterior chamber. Moxifloxacin was injected into the anterior chamber. The wound was checked and found to be water tight. The patient tolerated the procedure well without complications. DENNIS CASTRO MD Aug 10, 2018 09:42
[2018-08-10 09:52] VITALS: BP 147/63
[2018-08-10] MEDS ORDERED: acetaZOLAMIDE ER 500 MG CAP (DIAMOX SEQUELS) PO ONE (10:00)
== END 2018-08-10 09:52 | disposition home or self-care (01) ==
LOC: SDC 08:25
PROVIDERS: ATTEND Specialist
DX: H25.11 Age-related nuclear cataract, right eye (principal); I25.10 Atherosclerotic heart disease of native coronary artery without angina pectoris; I49.5 Sick sinus syndrome; J45.909 Unspecified asthma, uncomplicated; Z86.73 Personal history of transient ischemic attack (TIA), and cerebral infarction without residual deficits; Z87.891 Personal history of nicotine dependence; Z95.1 Presence of aortocoronary bypass graft; Z79.01 Long term (current) use 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s; Z79.899 Other long term (current) drug therapy

== ENCOUNTER → 2018-08-13 | Outpatient (CLI) | payer MEDICAID | LOC: CARD 12:28 | PROVIDERS: ATTEND Internal Medicine Cardiovascular Disease | DX: R07.89 Other chest pain (principal); I25.10 Atherosclerotic heart disease of native coronary artery without angina pectoris; I49.5 Sick sinus syndrome; J44.9 Chronic obstructive pulmonary disease, unspecified; E11.9 Type 2 diabetes mellitus without complications; R06.09 Other forms of dyspnea | CPT/HCPCS: 93306 ==

== ENCOUNTER 2018-08-22 05:32 | Outpatient (CLI) | payer MEDICAID ==
[~2018-08-22] VITALS: Ht 167.6 cm; Wt 81.6 kg
== END 2018-08-22 15:41 | disposition home or self-care (01) ==
LOC: PREOP 05:32
PROVIDERS: ATTEND Specialist
DX: Z01.818 Encounter for other preprocedural examination (principal)

== ENCOUNTER 2018-08-24 08:30 | Day surgery (SDC) | payer MEDICAID ==
--- NOTE | 2018-08-10 10:36 | Anesthesia-General Post-Op ---
MAC Patient Condition Mental Status/LOC: Same as Preop Cardiovascular: Satisfactory Nausea/Vomiting: Absent Respiratory: Satisfactory Pain: Controlled Complications: Absent Post Op Complications Complications None Follow Up Care/Instructions Patient Instructions None needed. Anesthesiology Discharge Order Discharge Order Patient is doing well, no complaints, stable vital signs, no apparent adverse anesthesia problems. No complications reported per nursing. CECILIO JEAN BAPTISTE CRNA Aug 10, 2018 10:36
[~2018-08-24] VITALS: Ht 167.6 cm; Wt 81.6 kg
[2018-08-24 08:30] VITALS: BP 154/73
[2018-08-24] MEDS ORDERED: TIMOLOL MALEATE 0.5% 5 ML (TIMOPTIC) BTL OU PRN (08:45)
[2018-08-24] MEDS ORDERED: LIDOCAINE PF 1% 2 ML AMP IR PRN (08:45)
[2018-08-24] MEDS ORDERED: MOXIFLOXACIN OPHTH SOLN 5 MG/ML 0.3 ML SYRINGE OP ONE (08:45)
[2018-08-24] MEDS ORDERED: POVIDONE (BETADINE) OPHTH SOLN 5% 30 ML OP ONE (08:45)
[2018-08-24] MEDS: TETRACAINE 0.5% OPHTH SOLN 4 ML BTL (SINGLE DOSE ONLY) OU PRN ×4 (08:46→09:19)
[2018-08-24] MEDS: PHENYLEPHRINE 10% OPHTH (NEO-SYN) 5 ML BTL OU SCH ×3 (08:59→09:19)
[2018-08-24] MEDS: CYCLOPENTOLATE 1% (CYCLOGYL) 2 ML DROPS OP SCH ×3 (08:59→09:19)
[2018-08-24] MEDS ORDERED: MIDAZOLAM 2 MG/2 ML (VERSED) VIAL ONE (09:45)
--- NOTE | 2018-08-24 10:12 | Ophthalmologist Pre-Op Note ---
Pre-Operative Progress Note H&P Reviewed The H&P was reviewed, patient examined and no changes noted. Date H&P Reviewed: Aug 24, 2018 Time H&P Reviewed: 10:11 Pre-Op Dx Cataract, Left Eye AMARILIS CASTRO MD Aug 24, 2018 10:11
[2018-08-24] MEDS ORDERED: acetaZOLAMIDE ER 500 MG CAP (DIAMOX SEQUELS) PO ONE (10:30)
--- NOTE | 2018-08-24 10:35 | Ophthalmology Operative Report ---
Cataract removal/placement IOL PREOPERATIVE DIAGNOSIS: Cataract Left Eye POSTOPERATIVE DIAGNOSIS: Cataract Left Eye PROCEDURE: Cataract removal and placement of posterior chamber implant, left eye SURGEON: Dennis Castro ANESTHESIA: Topical with sedation COMPLICATIONS: None ESTIMATED BLOOD LOSS: Minimal DESCRIPTION OF PROCEDURE: After proper informed consent was obtained, the patient, a 68 male, was taken to the Operating Room and the left eye was anesthetized with tetracaine. The left eye was then prepped and draped in the usual manner. A wire lid speculum was placed. A paracentesis was made at the left hand position. Preservative free lidocaine was injected into the anterior chamber followed by viscoelastic. A clear corneal incision was made in the temporal position. A capsulorrhexis was preformed and the central nuclear and cortical material were removed. The posterior capsule was polished and an Patrick 22.0 AU00T0 was placed into the capsular bag. The residual viscoelastic was aspirated and balanced saline solution was injected into the anterior chamber. Moxifloxacin was injected into the anterior chamber. The wound was checked and found to be water tight. The patient tolerated the procedure well without complications. DENNIS CASTRO MD Aug 24, 2018 10:35
[2018-08-24] MEDS ORDERED: diphenhydrAMINE 50 MG/ML INJ (BENADRYL) ONE (10:42)
[2018-08-24 10:55] VITALS: BP 147/69
--- NOTE | 2018-08-24 11:03 | Anesthesia-General Post-Op ---
MAC Patient Condition Mental Status/LOC: Same as Preop Cardiovascular: Satisfactory Nausea/Vomiting: Absent Respiratory: Satisfactory Pain: Controlled Complications: Absent Post Op Complications Complications None Follow Up Care/Instructions Patient Instructions None needed. Anesthesiology Discharge Order Discharge Order Patient is doing well, no complaints, stable vital signs, no apparent adverse anesthesia problems. No complications reported per nursing. MARÍA GUTIERREZ CRNA Aug 24, 2018 11:03
== END 2018-08-24 10:55 | disposition home or self-care (01) ==
LOC: SDC 08:30
PROVIDERS: ATTEND Specialist
DX: H25.12 Age-related nuclear cataract, left eye (principal); E11.36 Type 2 diabetes mellitus with diabetic cataract; I10 Essential (primary) hypertension; Z86.73 Personal history of transient ischemic attack (TIA), and cerebral infarction without residual deficits; Z87.891 Personal history of nicotine dependence; Z79.01 Long term (current) use 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s; Z79.4 Long term (current) use of insulin; Z79.899 Other long term (current) drug therapy
CPT/HCPCS: 82962

== ENCOUNTER 2018-10-02 06:54 | Outpatient (CLI) | payer MEDICAID ==
[~2018-10-02] VITALS: Ht 167.6 cm; Wt 81.6 kg
== END 2018-10-03 09:45 ==
LOC: PREOP 06:54
PROVIDERS: ATTEND Specialist
DX: Z01.818 Encounter for other preprocedural examination (principal)

== ENCOUNTER 2018-10-05 08:33 | Day surgery (SDC) | payer MEDICAID ==
[~2018-10-05] VITALS: Ht 167.6 cm; Wt 81.6 kg
[2018-10-05 08:40] VITALS: BP 142/71
[2018-10-05] MEDS: PHENYLEPHRINE 10% OPHTH (NEO-SYN) 5 ML BTL OU PRN ×4 (08:51→09:00)
[2018-10-05] MEDS: TROPICAMIDE 1% OPH SOLN (MYDRIACYL) 15 ML BTL OU PRN ×4 (08:51→09:00)
[2018-10-05] MEDS: TETRACAINE 0.5% OPHTH SOLN 4 ML BTL (SINGLE DOSE ONLY) OU PRN ×4 (08:51→09:00)
[2018-10-05 09:33] VITALS: BP 142/71
--- NOTE | 2018-10-05 09:47 | Ophthalmology Operative Report ---
YAG Capsulotomy PREOPERATIVE DIAGNOSIS: Secondary Cataract Bilateral POSTOPERATIVE DIAGNOSIS: Secondary Cataract Bilateral PROCEDURE: YAG Capsulotomy, Bilateral SURGEON: Dennis Castro ANESTHESIA: Topical anesthesia COMPLICATIONS: None ESTIMATED BLOOD LOSS: Minimal DESCRIPTION OF PROCEDURE: After proper informed consent was obtained, the patient's, a 68 male , received one drop of Tropicamide and one drop of Tetracaine in each eye. The patient was then placed at the YAG laser and using a power of [ 3.1 ] millijoules and bursts [ 16] right eye and [14 ] left eye were used to fashion a central capsulotomy. The patient tolerated the procedure well without complications and the patient's pressure was [19\20 ] shortly after the laser. DENNIS CASTRO MD October 05, 2018 09:47
--- NOTE | 2018-10-05 09:48 | Ophthalmologist Pre-Op Note ---
Pre-Operative Progress Note H&P Reviewed The H&P was reviewed, patient examined and no changes noted. Date H&P Reviewed: October 05, 2018 Time H&P Reviewed: 09:22 Pre-Op Dx Secondary Cataract, Bilateral Eyes AMARILIS CASTRO MD October 05, 2018 09:48
== END 2018-10-05 09:33 | disposition home or self-care (01) ==
LOC: SDC 08:33
PROVIDERS: ATTEND Specialist
DX: H26.493 Other secondary cataract, bilateral (principal); Z87.891 Personal history of nicotine dependence; Z95.0 Presence of cardiac pacemaker; Z95.1 Presence of aortocoronary bypass graft